=== PATIENT | male | born 1970 | race Caucasian/White ===

== ENCOUNTER 2020-12-11 10:57 | Outpatient (NON) | payer OTHER, SELFPAY ==
[2020-12-11 22:22] LABS: SARS-CoV-2 RNA PCR Negative
== END 2020-12-11 10:58 ==
PROVIDERS: PCP Emergency Medicine; Visit Provider Emergency Medicine
DX: J06.9 Acute upper respiratory infection, unspecified (principal); Z20.822 Contact with and (suspected) exposure to COVID-19
CPT/HCPCS: C9803; U0003

== ENCOUNTER → 2020-12-12 15:09 | Outpatient (CLI) | payer OTHER, SELFPAY ==
--- NOTE | ~2020-12-12 | XR_ITS ---
EXAMINATION: XR hip RT min 2V DATE: 12/12/2020 15:25 INDICATION: Right hip pain. TECHNIQUE: 3 views of right hip were obtained. COMPARISON: None. FINDINGS: Bone alignment is normal. No fracture. There is sclerosis in femoral head, consistent with osteonecrosis. There is mild right hip osteoarthritis. IMPRESSION: 1. Sclerosis in right femoral head, consistent with osteonecrosis. 2. Mild right hip osteoarthritis. Reviewed, dictated and finalized at location A. EM SUPPORT SPECIALIST
== END ==
PROVIDERS: PCP Emergency Medicine; Visit Provider Emergency Medicine
DX: M16.11 Unilateral primary osteoarthritis, right hip (principal)
CPT/HCPCS: 73502

== ENCOUNTER → 2022-02-12 02:00 | Outpatient (CLI) | payer OTHER, SELFPAY ==
[2022-02-12 11:57] LABS: SARS-CoV-2 RNA PCR Negative
== END ==
PROVIDERS: PCP Emergency Medicine; Visit Provider Emergency Medicine
DX: R50.9 Fever, unspecified (principal); Z20.822 Contact with and (suspected) exposure to COVID-19
CPT/HCPCS: C9803; U0003; U0005

== ENCOUNTER 2022-02-15 12:34 | Emergency (ER) | payer OTHER, SELFPAY ==
--- NOTE | ~2022-02-15 | CT_ITS ---
EXAMINATION: CT brain wo con DATE: 02/15/2022 14:46 INDICATION: Dizziness. TECHNIQUE: Computed tomography (CT) of the head was performed without intravenous contrast. The mA wa s adjusted according to patient size. Iterative reconstruction technique was employed. The dose-lengt h product was 756.67 mGy-cm. COMPARISON: None FINDINGS: There is no intracranial hemorrhage, acute infarction, or abnormal intracranial mass lesion . The ventricles are normal in size. There is an aneurysm clip in suprasellar cistern. There are zhu ges of right-sided craniotomy. The orbits are normal. There is mild mucosal thickening in the paranas al sinuses. The mastoid air cells are normal. IMPRESSION: 1. Normal brain. Reviewed, dictated and finalized at location A. IMPRESSION: 1. Normal brain.
--- NOTE | ~2022-02-15 | XR_ITS ---
EXAMINATION: XR chest 2V 02/15/2022 14:50 INDICATION: Dizziness. Hypotension. PROCEDURE: 2 view chest COMPARISON: No prior studies for comparison. FINDINGS: The lungs are clear. The cardiomediastinal silhouette is within normal limits. There are no pleural effusions. There is no pneumothorax suspected. IMPRESSION: 1: NO ACUTE CARDIOPULMONARY DISEASE. Reviewed, dictated and finalized at location B.
[2022-02-15 12:35] VITALS: BP 123/61; PULSE 79; RESP 15; TEMP 36.4; O2SAT 99
--- NOTE | 2022-02-15 13:58 | ECG_ITS ---
Measurements Intervals [place] Rate: 67 P: 17 DE: 151 QRS: 1 QRSD: 108 T: 15 QT: 420 QTc: 446 Interpretive Statements SINUS RHYTHM NORMAL ECG NO PREVIOUS ECG AVAILABLE FOR COMPARISON Electronically Signed On 02-15-2022 16:20:34 CDT by Mikey Bailey M.D.
--- NOTE | 2022-02-15 13:59 | ED.DIZZY ---
HPI - Dizziness General Chief Complaint: Dizziness Stated Complaint: hypotension, dizziness Time Seen by Provider: 02/15/22 13:53 Source: patient Mode of arrival: ambulatory Limitations: no limitations History of Present Illness HPI Narrative: This is a 51 year old male that presents to the ER for lightheadedness. Has had intermittent episodes of this over the last week. He noted his blood pressure was low with this today which prompted him to be seen. Denies vision changes, vomiting, chest pain, shortness of breath, numbness, or weakness. Related Data Home Medications Medication Instructions Recorded Confirmed allopurinol 02/15/22 doxazosin mg 02/15/22 fenofibrate mg 02/15/22 hydralazine 02/15/22 levothyroxine 02/15/22 lisinopril 02/15/22 triamterene-hydrochlorothiazid tablet 02/15/22 verapamil mg PO 02/15/22 Allergies Allergy/AdvReac Type Severity Reaction Status Date / Time No Known Allergies Allergy Unverified 04/01/16 01:18 Review of Systems Review of Systems: CONSTITUTIONAL: Denies fever EYES: Denies visual changes CARDIOVASCULAR: Denies chest pain, or edema. RESPIRATORY: Denies dyspnea. GASTROINTESTINAL: Denies vomiting NEUROLOGIC: Denies headache, numbness, or weakness. All systems reviewed & are unremarkable except as noted in HPI and below PMFSH Past Medical History Medical History (Updated 02/15/22 @ 16:18 by Jeanna Chauhan PA-C) History of hypertension Social History Social History (Updated 02/15/22 @ 14:41 by Jeanna Chauhan PA-C) Smoking status: Never smoker Exam Narrative: GENERAL: Well-appearing, well-nourished, and in no acute distress. HEAD: Normocephalic, atraumatic. EYES: PERRLA and EOMI. ENT: Nares clear, no rhinorrhea or epistaxis. Mucous membranes moist. Oropharynx without tonsillar hypertrophy exudate or other lesions. Bilateral TMs pearly sandoval non-bulging NECK: Supple. No adenopathy or masses. CHEST: Clear to auscultation. No respiratory distress. No wheezes rales or rhonchi HEART: Regular rate and rhythm. No murmur heard. Normal peripheral pulses. ABDOMEN: Soft, nontender, nondistended, normal active bowel sounds. EXTREMITIES: Normal range of motion. No edema. Strength equal in bilateral upper and lower extremities (5/5) SKIN: Warm, dry, no rash. NEURO: No focal deficits. Alert and oriented x3. Cranial nerves II through XII grossly intact PSYCH: Normal mood and affect Course Vital Signs Vital signs: Vital Signs Temperature 97.6 F 02/15/22 12:35 Pulse Rate 79 02/15/22 12:35 Respiratory Rate 15 02/15/22 12:35 Blood Pressure 123/61 02/15/22 12:35 Pulse Oximetry 99 02/15/22 12:35 Temperature 97.6 F 02/15/22 12:35 Pulse Rate 79 02/15/22 14:14 Respiratory Rate 15 02/15/22 12:35 Blood Pressure 98/59 L 02/15/22 14:14 Pulse Oximetry 99 02/15/22 12:35 MDM - Dizziness MDM Narrative Medical decision making narrative: Patient presents to the emergency department for lightheadedness today. Patient orthostatic on arrival. Symptoms improved with IV fluid administration. He is neurovascularly intact. CBC and metabolic panel without concerning findings. UA without evidence of infection. Chest x-ray without acute cardiopulmonary abnormality. EKG without concerning changes. CT scan of the brain is normal. Once again patient hydrated with a liter of IV fluids with relief of symptoms. He is stable and felt appropriate for further outpatient evaluation. He is to follow-up with his primary care doctor. He was given warnings to return to the ER Lab Data Attestation: I reviewed the patient's lab results. Result diagrams: 02/15/22 14:19 02/15/22 14:19 Labs: Lab Results 02/15/22 02/15/22 02/15/22 Range/Units 14:19 14:19 14:30 WBC 6.5 (4.5-10.0) K/mm3 RBC 4.62 (4.6-6.20) M/mm3 Hgb 14.0 (14.0-18.0) g/dL Hct 41.3 L (42.0-52.0) % MCV 89.4 (80-100) fl MCH 30.3 (26
[2022-02-15 14:11] VITALS: BP 103/63; PULSE 63
[2022-02-15 14:12] VITALS: BP 112/67; PULSE 73
[2022-02-15 14:14] VITALS: BP 98/59; PULSE 79
[2022-02-15 14:38] LABS: Basophils Percent Auto 0.5 % (0.2-1.2); Eosinophils Absolute Auto 0.2 K/mm3 (0-0.3); Eosinophils Percent Auto 2.5 % (0-4.4); Hematocrit 41.3 % (42.0-52.0); Immature Granulocyte Absolute 0.04 K/mm3 (0.00-0.031); Immature Granulocyte Percent A 0.6 % (0-0.5); Lymphocytes Absolute Auto 1.93 K/mm3 (0.9-3.2); Lymphocytes Percent Auto 29.7 % (18.3-44.2); Mean Corpuscular HGB Conc 33.9 g/dl (32-36); Mean Corpuscular Hemoglobin 30.3 pg (26-34); Mean Corpuscular Volume 89.4 fl (80-100); Monocytes Absolute Auto 0.6 K/mm3 (0.1-0.6); Monocytes Percent Auto 8.6 % (2.6-8.5); Neutrophils Absolute Auto 3.8 K/mm3 (1.3-6.7); Neutrophils Percent Auto 58.1 % (45.5-73.1); Platelet Count Result 360 k/mm3 (150-375); Red Blood Count 4.62 M/mm3 (4.6-6.20); Red Cell Distribution Width 12.1 % (11.5-14.5); White Blood Count 6.5 K/mm3 (4.5-10.0)
[2022-02-15] MEDS: SODIUM CHLORIDE 0.9% IV 1,000 ML 999 ML IV CONT (14:45)
[2022-02-15 15:01] LABS: Alanine Aminotransferase 45 U/L (4-50); Albumin Level 4.8 g/dL (3.5-5.1); Alkaline Phosphatase 68 U/L (38-126); Anion Gap 13 mmol/L (8-16); Aspartate Amino Transferase 70 U/L (17-59); Bilirubin,Total 0.4 mg/dL (0.2-1.3); Blood Urea Nitrogen 33 mg/dL (9-20); Calcium 8.9 mg/dL (8.4-10.2); Carbon Dioxide 22 mmol/L (22-30); Chloride 100 mmol/L (98-107); Estimated Glomerular Filt Rate 58; Glucose 90 mg/dL (65-110); Potassium 3.9 mmol/L (3.4-5.0); Sodium 135 mmol/L (137-145)
[2022-02-15 15:04] LABS: Add Urine Microscopic? YES; Appearance Urine Cloudy (Clear); Bacteria Urine Trace /hpf; Bilirubin Urine Negative (Negative); Blood Urine Negative (Negative); Color Urine Amber (Yellow); Glucose Urine UA Negative (Negative); Ketones Urine Negative (Negative); Leukocyte Esterase Ur Negative LEU/UL (Negative); Mucus Urine Few /lpf; Nitrate Urine Negative (Negative); Protein Urine Negative (Negative); Specific Grav Ur 1.024 (1.001-1.035); Urobilinogen Urine Negative mg/dL (<2.0); WBC Urine 0-3 /hpf
[2022-02-15 16:25] VITALS: BP 120/49; PULSE 80; RESP 18; O2SAT 99
== END 2022-02-15 16:25 | disposition home or self-care (01) ==
PROVIDERS: Physician Assistant; Emergency Provider Emergency Medicine; PCP Emergency Medicine
DX: R42 Dizziness and giddiness (principal); I10 Essential (primary) hypertension
CPT/HCPCS: 36415; 70450; 71046; 80053; 81001; 85025; 93005; 96360; 99284; J7030

== ENCOUNTER 2022-02-22 12:52 | Outpatient (CLI) | payer OTHER, SELFPAY ==
--- NOTE | ~2022-02-22 | US_ITS ---
EXAMINATION: US renal BI DATE: 02/22/2022 14:07 INDICATION: Elevated liver enzymes TECHNIQUE: Multiple grayscale and Doppler ultrasound images of the kidneys were obtained. COMPARISON: None. FINDINGS: The right kidney measures 13.2 x 7.3 x 5.6 cm. The left kidney measures 12.9 x 6.3 x 3.6 cm and contains a 3.1 cm cyst. The kidneys demonstrate normal parenchymal echogenicity. There is no hyd ronephrosis. The bladder is normal. IMPRESSION: 1. Normal kidneys without hydronephrosis. Reviewed, dictated and finalized at location B.
--- NOTE | ~2022-02-22 | US_ITS ---
EXAMINATION: US abdomen complete DATE: 02/22/2022 14:07 INDICATION: Elevated liver enzymes TECHNIQUE: Multiple grayscale and Doppler ultrasound images of the abdomen were obtained. COMPARISON: None available FINDINGS: Bowel gas obscures visualization of the pancreas. The liver demonstrates increased echogeni city, heterogenous echotexture, and decreased through transmission. No surface nodularity. Normal hep atopetal flow in the main portal vein. The gallbladder is normal with no abnormal wall thickening, pe richolecystic fluid or stones. The normal common bile duct measures 5 mm. There was no sonographic Mu rphy sign. The visualized portions of the aorta and inferior vena cava are normal. The right kidney measures 12.4 x 6.6 x 5.5 cm. The left kidney measures 13.5 x 6.4 x 5.2 cm. There is a 2.9 cm cyst of the left kidney. The kidneys demonstrate normal parenchymal echogenicity. There is no hydronephrosis. The spleen is normal in appearance and measures 12.3 cm. IMPRESSION: 1. Diffuse hepatic steatosis. Reviewed, dictated and finalized at location B.
[2022-02-22 14:38] LABS: Anion Gap 8 mmol/L (8-16); Blood Urea Nitrogen 18 mg/dL (9-20); Calcium 9.6 mg/dL (8.4-10.2); Carbon Dioxide 23 mmol/L (22-30); Chloride 104 mmol/L (98-107); Estimated Glomerular Filt Rate > 60; Glucose 86 mg/dL (65-110); Potassium 4.3 mmol/L (3.4-5.0); Sodium 135 mmol/L (137-145)
[2022-02-22 15:47] LABS: Hepatitis B Surface Antigen Negative (Negative)
[2022-02-22 15:53] LABS: HAV RESULT Negative (Negative); Hepatitis B Core IgM Result Negative (Negative)
[2022-02-22 16:05] LABS: Hepatitis C Virus Antibody Negative (Negative)
== END 2022-02-22 12:53 | disposition home or self-care (01) ==
PROVIDERS: PCP Emergency Medicine; Visit Provider Emergency Medicine
DX: R31.9 Hematuria, unspecified (principal); R74.8 Abnormal levels of other serum enzymes; K76.0 Fatty (change of) liver, not elsewhere classified
CPT/HCPCS: 36415; 76700; 76775; 80048; 80074; 88108

== ENCOUNTER 2022-02-23 10:55 | Outpatient (CLI) | payer OTHER, SELFPAY ==
[2022-02-23 14:47] LABS: IFOB Positive Control Positive; Immunochemical Fecal Occult Bl Positive (N)
== END 2022-02-23 10:56 | disposition home or self-care (01) ==
LOC: ANHLAB 10:56
PROVIDERS: PCP Emergency Medicine; Visit Provider Emergency Medicine
DX: D64.9 Anemia, unspecified (principal); R94.5 Abnormal results of liver function studies; R31.9 Hematuria, unspecified
CPT/HCPCS: 82274

== ENCOUNTER 2022-06-18 11:08 | Inpatient (IN) | payer OTHER, SELFPAY ==
[2022-06-18] VITALS (17 sets, daily range): BP systolic 104–132; BP diastolic 52–66; PULSE 65–80; RESP 16–20; TEMP 36.1–36.6; O2SAT 94–100
--- NOTE | ~2022-06-18 | CT_ITS ---
EXAMINATION: CT abdomen pelvis w con DATE: 06/18/2022 14:16 INDICATION: Abdominal pain. Covid-positive yesterday. TECHNIQUE: Computed tomography (CT) of the abdomen and pelvis was performed with 100 CC Omnipaque 300 intravenous contrast. Automated exposure control and iterative reconstruction technique were employe d. Exam dose: 805.01 mGy-cm total exam DLP. COMPARISON: 02/22/2022 bilateral renal ultrasound examination; kidneys were reported normal, without h ydronephrosis FINDINGS: The lung bases are clear. Normal heart size. No pericardial or pleural effusion. Small sliding hiatal hernia. The liver, gallbladder, bile ducts, pancreas, pancreatic duct and spleen are unremarkable. 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 Possible proxy 14 mm right adrenal myelolipoma. Approximately 7.5 and 4.5 mm right renal cysts. 4 mm and 3 cm left renal cysts. Prostate enlargement, impressing the base of the urinary bladder. Mild diffuse bladder wall thickenin g. Moderate bilateral fat-containing inguinal hernias. There is atherosclerotic calcification but normal caliber of the abdominal aorta and iliac and femora l arteries. No intraperitoneal or retroperitoneal or pelvic mass lesion or lymphadenopathy or ascites . There is a pericolic irregular small abscess cavity and pericolic fat stranding at the mid sigmoid co danny, consistent with diverticulitis and small diverticular abscess measuring approximately 10 mm with an 2.5 cm vertical dimension. There are numerous diverticula of the sigmoid colon. No bowel obstruction. Normal appendix. Bilateral femoral head avascular necrosis and secondary hip joint osteoarthritis. No suspicious osteolytic or osteoblastic lesions. IMPRESSION: Sigmoid diverticulitis with approximately 10 x 25 mm pericolic abscess and moderate noelle colic fat stranding consistent with inflammatory change Sigmoid diverticulosis Normal appendix Moderate bilateral fat-containing inguinal hernias Small hiatal hernia Bilateral renal cysts Bilateral femoral head avascular necrosis and secondary osteoarthritis Reviewed, dictated and finalized at Location A. Reviewed, dictated and finalized at location B. IMPRESSION: Sigmoid diverticulitis with approximately 10 x 25 mm pericolic abs cess and moderate pericolic fat stranding consistent with inflammatory change Sigmoid diverticulosis Normal appendix Moderate bilateral fat-containing inguinal hernias Small hiatal hernia Bilateral renal cysts Bilateral femoral head avascular necrosis and secondary osteoarthritis
--- NOTE | ~2022-06-18 | XR_ITS ---
EXAMINATION: XR chest 1V portable DATE: 06/19/2022 13:20 INDICATION: Abdominal pain. COVID-19 positive. TECHNIQUE: A single frontal view of the chest was obtained on 2 radiographs. COMPARISON: Chest 2 views 02/15/2022, CT abdomen and pelvis 06/18/2022 FINDINGS: There is mild atelectasis in left lower lung zone. No pleural effusion or pneumothorax. The heart size is normal. IMPRESSION: 1. Mild atelectasis in left lower lung zone. Reviewed, dictated and finalized at location A.
[2022-06-18 11:43] LABS: Basophils Percent Auto 0.3 % (0.2-1.2); Eosinophils Absolute Auto 0.1 K/mm3 (0-0.3); Eosinophils Percent Auto 0.8 % (0-4.4); Hematocrit 44.1 % (42.0-52.0); Hemoglobin 14.6 g/dL (14.0-18.0); Immature Granulocyte Absolute 0.05 K/mm3 (0.00-0.031); Immature Granulocyte Percent A 0.5 % (0-0.5); Lymphocytes Percent Auto 22.7 % (18.3-44.2); Mean Corpuscular HGB Conc 33.1 g/dl (32-36); Mean Corpuscular Hemoglobin 31.1 pg (26-34); Mean Corpuscular Volume 93.8 fl (80-100); Mean Platelet Volume 10.8 fl (7.4-10.4); Monocytes Absolute Auto 0.8 K/mm3 (0.1-0.6); Monocytes Percent Auto 7.9 % (2.6-8.5); Neutrophils Absolute Auto 6.9 K/mm3 (1.3-6.7); Neutrophils Percent Auto 67.8 % (45.5-73.1); Platelet Count Result 295 k/mm3 (150-375); Red Cell Distribution Width 12.1 % (11.5-14.5); White Blood Count 10.1 K/mm3 (4.5-10.0)
[2022-06-18 11:55] LABS: Alanine Aminotransferase 18 U/L (6-50); Albumin Level 4.9 g/dL (3.5-5.1); Alkaline Phosphatase 55 U/L (38-126); Anion Gap 12 mmol/L (8-16); Aspartate Amino Transferase 26 U/L (17-59); Bilirubin,Total 0.8 mg/dL (0.2-1.3); Blood Urea Nitrogen 26 mg/dL (9-20); Calcium 9.4 mg/dL (8.4-10.2); Carbon Dioxide 22 mmol/L (22-30); Chloride 103 mmol/L (98-107); Estimated CRCL calculation 65 ml/min; Estimated Glomerular Filt Rate 58; Glucose 106 mg/dL (65-110); Lipase 57 U/L (23-300); Potassium 3.7 mmol/L (3.4-5.0); Sodium 137 mmol/L (137-145)
--- NOTE | 2022-06-18 13:02 | ED.ABDPAIN ---
HPI - Abdominal Pain General Chief Complaint: Abdominal Pain Stated Complaint: abd pain Time Seen by Provider: 06/18/22 13:01 Source: patient and RN notes reviewed Mode of arrival: ambulatory Limitations: no limitations History of Present Illness HPI narrative: 51 years old white male developed COVID symptoms 4 days ago, tested positive yesterday complaining of right lower quadrant pain, sharp, constant with intermittent flareup, intermittent chills, possible constipation, loose stool today. Patient denies any fever, vomiting, radiation of pain. Patient lives alone, vaccinated for COVID, did not get boosted. History of gout, hypertension, hypothyroidism. Related Data Home Medications Medication Instructions Recorded Confirmed allopurinol 100 mg tablet 02/15/22 doxazosin 4 mg tablet mg 02/15/22 fenofibrate 160 mg tablet mg 02/15/22 hydralazine 25 mg tablet 02/15/22 levothyroxine 150 mcg tablet 02/15/22 lisinopril 40 mg tablet 02/15/22 triamterene 37.5 tablet 02/15/22 mg-hydrochlorothiazide 25 mg tablet verapamil 240 mg tablet,extended mg PO 02/15/22 release Allergies Allergy/AdvReac Type Severity Reaction Status Date / Time No Known Allergies Allergy Verified 06/18/22 11:18 Review of Systems Review of Systems: All systems reviewed & are unremarkable except as noted in HPI and below PMFSH Past Medical History Medical History History of hypertension Social History Social History Smoking status: Never smoker Exam Narrative: General appearance: Well-developed, well-nourished Skin: Normal color Head: Normocephalic, nontraumatic Eyes: Clear conjunctiva ENT: Oropharynx normal, ears normal, nose normal Neck: Supple, nontender Chest and respiratory: Airway patent, no respiratory distress, no accessory muscle use Heart: Regular rate/rhythm Abdomen: Soft, severe tenderness right lower quadrant, positive guarding, no rebound, no organomegaly, quiet bowel sounds Vascular: Normal peripheral pulses, normal capillary refill. 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 as tested, no gross motor deficit Course Vital Signs Vital signs: Vital Signs Temperature 36.1 C L 06/18/22 11:15 Pulse Rate 80 06/18/22 11:15 Respiratory Rate 16 06/18/22 11:15 Pulse Oximetry 100 06/18/22 11:15 Oxygen Delivery Room Air 06/18/22 11:15 Temperature 36.1 C L 06/18/22 11:15 Pulse Rate 80 06/18/22 11:15 Respiratory Rate 16 06/18/22 11:15 Pulse Oximetry 100 06/18/22 11:15 Oxygen Delivery Room Air 06/18/22 11:15 MDM - Abdominal Pain Lab Data Result diagrams: 06/18/22 11:26 06/18/22 11:26 Labs: Lab Results 06/18/22 06/18/22 Range/Units 11:26 11:26 WBC 10.1 H (4.5-10.0) K/mm3 RBC 4.70 (4.6-6.20) M/mm3 Hgb 14.6 (14.0-18.0) g/dL Hct 44.1 (42.0-52.0) % MCV 93.8 (80-100) fl MCH 31.1 (26-34) pg MCHC 33.1 (32-36) g/dl RDW 12.1 (11.5-14.5) % Plt Count 295 (150-375) k/mm3 MPV 10.8 H (7.4-10.4) fl Immature Gran % (Auto) 0.5 (0-0.5) % Neut % (Auto) 67.8 (45.5-73.1) % Lymph % (Auto) 22.7 (18.3-44.2) % [place] % (Auto) 7.9 (2.6-8.5) % Eos % (Auto) 0.8 (0-4.4) % Baso % (Auto) 0.3 (0.2-1.2) % Lymph # (Auto) 2.30 (0.9-3.2) K/mm3 [place] # (Auto) 0.8 H (0.1-0.6) K/mm3 Eos # (Auto) 0.1 (0-0.3) K/mm3 Baso # (Auto) 0.0 (0.0-0.1) K/mm3 Abs Immat Gran (auto) 0.05 H (0.00-0.031) K/mm3 Absolute Neuts (auto) 6.9 H (1.3-6.7) K/mm3 Abso
[2022-06-18] MEDS: HYDROmorphone HCL INJ (*CRX) 1 MG/ML SYR 0.5 MG IV PUSH ×3 (13:55→19:54)
[2022-06-18] MEDS: ONDANSETRON INJ 4 MG/2 ML VIAL IV PUSH (13:55)
[2022-06-18] MEDS: SODIUM CHLORIDE 0.9% IV 1,000 ML 999 ML IV CONT (13:56)
[2022-06-18 15:13] LABS: Lactic Acid Reflex 1.4 mmol/L (0.7-2.0)
[2022-06-18 15:31] LABS: Appearance Urine Clear (Clear); Bilirubin Urine Negative (Negative); Blood Urine Negative (Negative); Color Urine Yellow (Yellow); Glucose Urine UA Negative (Negative); Ketones Urine Negative (Negative); Leukocyte Esterase Ur Negative LEU/UL (Negative); Nitrate Urine Negative (Negative); Protein Urine 2+ mg/dL (Negative); Specific Grav Ur 1.015 (1.001-1.035); Urobilinogen Urine 0.2 mg/dL (<2.0)
[2022-06-18 15:41] LABS: Add Urine Microscopic? YES; Bacteria Urine Trace /hpf; Mucus Urine Rare /lpf; RBC Urine 0-2 /hpf (0-2); Squamous Epithelial Cell Urine Rare /hpf (Few); WBC Urine 0-3 /hpf
[2022-06-18] MEDS: SODIUM CHLORIDE 0.9% IV 1,000 ML 125 ML IV CONT ×2 (15:55→23:27)
[2022-06-18 16:18] LABS: SARS-CoV-2 RNA PCR Positive
--- NOTE | 2022-06-18 16:30 | PM.IMHP ---
H&P: HPI History of Present Illness Date/Time: 06/18/22 16:30 Chief Complaint: Abdominal pain. Narrative: This is a pleasant 51-year-old male with hypertension, hypothyroidism, and GERD who presented to the emergency department from home for evaluation of abdominal pain. Last week he was exposed to somebody with COVID-19 and he did at home test several days ago which was positive though he has only had mild symptoms including some sinus congestion and sore throat. On Friday he developed mid pain which has since settled in the left lower quadrant. It has been constant since the outset and he describes a sharp shooting pain that does not seem to radiate. He has not noticed any significant alleviating factors but the pain is worse with palpation and movement. Unfortunately the pain has gotten worse and that led him to the ER today where a CT of the abdomen and pelvis showed sigmoid diverticulitis with a small pericolic abscess and he is being admitted in this setting. He has no prior history of diverticulitis and he does not recall being told about diverticulosis after a screening colonoscopy several months ago. He denies fever, chills, sweats, chest pain, shortness breast, cough, vomiting, and diarrhea. Review of Systems Review of Systems: Twelve systems were reviewed. No headache or neck ache. No fever. He denies shortness of breath. No dysuria or hematuria. He does get up to use the restroom most nights, once a night. He has bilateral hip pain and is being followed by an orthopedic surgeon for osteoarthritis of the hips an avascular necrosis. Except as documented all other systems were reviewed and are negative. 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 Gastroesophageal reflux disease Gout Hypercholesterolemia Hypertension Hypothyroidism Osteoarthritis Surgical History Surgical History (Updated 06/18/22 @ 23:07 by Ursula Orr PA-C) Status post clamping of cerebral aneurysm Family History Family History (Updated 06/18/22 @ 23:07 by Ursula Orr PA-C) Sibling Diverticulitis Social History Social History (Updated 06/18/22 @ 23:08 by Ursula G. Gerling, PA-C) Social History: Surrogate medical decision maker: Felipa Barrera, sibling. Code status: Full code. Smoking status: Never smoker Alcohol intake: current Drinks per week: 4 Substance use: never Living arrangements: alone Spiritual care concerns: No Meds Home Medications and Allergies Home Medications Medication Instructions Recorded Confirmed Type doxazosin 4 mg tablet 4 mg PO DAILY 02/15/22 06/18/22 History fenofibrate 160 mg tablet 160 mg PO DAILY 02/15/22 06/18/22 History hydralazine 25 mg tablet 25 mg PO TID 02/15/22 06/18/22 History levothyroxine 150 mcg tablet 150 mcg PO DAILY 02/15/22 06/18/22 History triamterene 37.5 1 tablet PO DAILY 02/15/22 06/18/22 History mg-hydrochlorothiazide 25 mg tablet verapamil 240 mg tablet,extended 240 mg PO BID 02/15/22 06/18/22 History release omeprazole 20 mg capsule,delayed 20 mg PO DAILY PRN Acid Reflux 06/18/22 06/18/22 History release Allergies Allergy/AdvReac Type Severity Reaction Status Date / Time No Known Allergies Allergy Verified 06/18/22 11:18 Vital Signs Vital Signs - 24 hr 06/18/22 11:15 Temperature 97 F L Pulse Rate 80 Respiratory Rate 16 Pulse Oximetry 100 Oxygen Delivery Room Air Exam Narrative: General: Moderately ill-appearing male in the semi recumbent position. Weight: 90.9 kg. BMI: 27.9. HEENT: PERRL, EOMI. Conjunctivae anicteric. Tacky mucous membranes. Neck: Supple. Respiratory: Lungs are clear to auscultation bilaterally. Cardiovascular: Regular rate and rhythm with S1-S2. Gastrointestinal: Abdomen is soft
--- NOTE | 2022-06-18 16:56 | PC.NURSE ---
Hospitalist PA at bedside to assess pt.
[2022-06-18] MEDS: MORPHINE SULFATE (*CRX) 2 MG/ML INJ IV PUSH (17:22)
--- NOTE | 2022-06-18 21:50 | PM.CNGS ---
Assessment and Plan Assessment and plan (1) Abscess of sigmoid colon due to diverticulitis: Code(s): K57.20 - Diverticulitis of large intestine with perforation and abscess without bleeding Status: Acute Assessment and Plan: CT scan reviewed and patient started on antibiotics. Will long have ice chips tonight sparingly. If doing well will gradually begin advancing his diet tomorrow most likely 1st for 24 hours on liquids. Will try to treat with antibiotics. Agree with IV antibiotics using Zosyn for now and consider switching him to Levaquin and Flagyl upon discharge for a total of 10 days of antibiotics. Interestingly the patient just had colonoscopy earlier this year. He does not remember anything mentioned about diverticuli. Will try to get the report. (2) Prostatic enlargement: Code(s): N40.0 - Benign prostatic hyperplasia without lower urinary tract symptoms Status: Acute Assessment and Plan: Has once a night nocturia. Discussed supplementation with Margarita palmetto with him if he would wish, but right now he does not have enough symptoms that he is worried. (3) Avascular necrosis of right femoral head: Code(s): M87.051 - Idiopathic aseptic necrosis of right femur Status: Acute Assessment and Plan: States that this was already known he has had pain in his hip so his PCP sent him to orthopedic surgeon who to took x-rays and told him this diagnosis. He believes the only treatment is replacement at some point if it gets bad enough pain or problems. (4) Avascular necrosis of left femoral head: Code(s): M87.052 - Idiopathic aseptic necrosis of left femur Status: Acute Assessment and Plan: Note same as above (5) COVID-19: Code(s): U07.1 - COVID-19 Status: Acute Assessment and Plan: As per hospitalist. Patient probably does not qualify for the oral antiviral. However, he does now have an added comorbidity with a combination of hypertension and the current diverticulitis. History of Present Illness Consult details Consult date: 06/18/22 Reason for consult: abdominal pain ( with CT evidence of diverticulitis) Requesting physician: Ursula Orr PA-C Narrative: this is a51 year old white male who apparently developed COVID symptoms 4 days ago, and then tested positive Friday. He now came to the ED today complaining of right lower quadrant pain, sharp, constant with intermittent flareups, intermittent chills, possible constipation did not have a bowel movement on Friday or Friday and a loose stool this morning. loose stool today.? Patient denies any fever, vomiting, radiation of pain.? Patient lives alone, vaccinated for COVID With [employer] two shot no booster. History of gout, hypertension, hypothyroidism. workup in the emergency room revealed elevated white count but just slight at 10,000. CT scan of the abdomen done to check on his abdominal pain reveals sigmoid diverticulitis with a 1 x 2.5 cm abscess near the area of the inflamed tissue of the colon. Patient now admitted by the hospitalist we are asked to consult regarding continuing follow-up of his diverticulitis. Interestingly he states that about 6 months ago or early this year he did have an outpatient colonoscopy [place] [facility] at an outpatient center. He was told he did need another 1 for until 10 years apparently no mention was made of any diverticula in the colon. (Will ask nurses to call Dr. Rashida hill office tomorrow and have the copy of the colonoscopy report sent to the floor. Review of Systems Review of Systems: All systems reviewed & are unremarkable except as noted in HPI and below (HPI) Constitutional: Constitutional: Reports as per HPI and Denies fever(s) Comments: Symptoms of COVID have been general achiness and significant tiredness with no energy. He still has his sense of taste and smell and has not had any fever. Eyes: Eyes: Rep
[2022-06-18] MEDS: HYDROmorphone HCL INJ (*CRX) 1 MG/ML SYR IV PUSH (23:26)
[2022-06-19] MEDS: HYDROmorphone HCL INJ (*CRX) 1 MG/ML SYR IV PUSH ×6 (02:27→20:56)
[2022-06-19] MEDS: LEVOTHYROXINE SODIUM INJ 100 MCG/5 ML VIAL 75 MCG IV PUSH (05:36)
[2022-06-19 06:00] VITALS: BP 108/62; PULSE 77; RESP 20; TEMP 36.4; O2SAT 97
[2022-06-19 07:02] LABS: Hematocrit 40.1 % (42.0-52.0); Hemoglobin 12.8 g/dL (14.0-18.0); Mean Corpuscular HGB Conc 31.9 g/dl (32-36); Mean Corpuscular Hemoglobin 30.8 pg (26-34); Mean Corpuscular Volume 96.4 fl (80-100); Mean Platelet Volume 11.3 fl (7.4-10.4); Platelet Count Result 250 k/mm3 (150-375); Red Blood Count 4.16 M/mm3 (4.6-6.20); Red Cell Distribution Width 12.1 % (11.5-14.5); White Blood Count 12.7 K/mm3 (4.5-10.0)
[2022-06-19 07:18] LABS: Alanine Aminotransferase 16 U/L (6-50); Albumin Level 4.4 g/dL (3.5-5.1); Alkaline Phosphatase 51 U/L (38-126); Anion Gap 9 mmol/L (8-16); Aspartate Amino Transferase 25 U/L (17-59); Blood Urea Nitrogen 22 mg/dL (9-20); CRP 23.4 mg/dL (<1.0); Calcium 8.9 mg/dL (8.4-10.2); Carbon Dioxide 23 mmol/L (22-30); Chloride 105 mmol/L (98-107); Estimated CRCL calculation 83 ml/min; Estimated Glomerular Filt Rate > 60; Glucose 105 mg/dL (65-110); Sodium 137 mmol/L (137-145)
[2022-06-19 08:37] LABS: Free T4 Free Thyroxine Reflex 1.62 ng/dL (0.78-2.19)
[2022-06-19] MEDS: PANTOPRAZOLE SODIUM IV 40 MG VIAL IV PUSH (09:16)
[2022-06-19 09:29] LABS: Total Triiodothyronine (T3) 0.71 NG/ML (0.97-1.69)
[2022-06-19] MEDS: SODIUM CHLORIDE 0.9% IV 1,000 ML 125 ML IV CONT (11:52)
--- NOTE | 2022-06-19 13:08 | PC.NURSE ---
Patient to find out where he had colonoscopy done and have records faxed.
[2022-06-19 14:00] VITALS: BP 124/78; PULSE 75; RESP 18; TEMP 37.2; O2SAT 96
--- NOTE | 2022-06-19 16:46 | PM.IMPN ---
Progress Note: A&P Assessment and Plan (1) Abscess of sigmoid colon due to diverticulitis: Code(s): K57.20 - Diverticulitis of large intestine with perforation and abscess without bleeding Status: Acute Assessment and Plan: Presented with abdominal pain. CT of the abdomen/pelvis showed sigmoid diverticulitis with 10x25 mm pericolic abscess Continue IV Zosyn Appreciate general surgery consultation Continue NPO diet. Advance diet per general surgery Monitor serial abdominal exams Analgesics as needed Slight increase in WBC today to 12.7. Patient remains afebrile. Monitor CBP (2) COVID-19: Code(s): U07.1 - COVID-19 Status: Acute Assessment and Plan: Symptom onset 06/14/22 with home positive test. Confirmatory PCR at this facility positive on 06/18/22. Patient relatively asymptomatic. CXR with no evidence of pneumonia He has no supplemental oxygen requirement No indication for steroids or antivirals at this time Inflammatory markers are slightly elevated but this could be attributed to acute diverticulitis Continue isolation precautions (3) Hypertension: Code(s): I10 - Essential (primary) hypertension Status: Acute Assessment and Plan: Blood pressures have been stable. Home p.o. antihypertensives on hold as patient is NPO. Resume when clinically appropriate Monitor BP trends (4) Hypothyroidism: Code(s): E03.9 - Hypothyroidism, unspecified Status: Acute Assessment and Plan: TSH is slightly elevated at 4.7 with normal T4 Continue levothyroxine, currently IV while NPO. Transition to p.o. levothyroxine when diet is advanced (5) Gastroesophageal reflux disease: Code(s): K21.9 - Gastro-esophageal reflux disease without esophagitis Status: Acute Assessment and Plan: No acute issues Continue IV Protonix 40 mg daily Subjective Date/time seen: 06/19/22 16:46 Interval history: Date of service: 06/19/2022 Erlin Mullins is a 51-year-old male with a history of cerebral aneurysm s/p clamp hyperlipidemia, hypertension, hypothyroidism, and avascular necrosis of the left and right femoral head who is seen in follow-up for sigmoid diverticulitis with small pericolic abscess. He is feeling poorly today. He is having pretty significant intermittent, sharp abdominal pain which he rates as 9/10. His pain is in the middle of his abdomen and off towards the right lower quadrant. He endorses nausea but no emesis. He has not had a fever but he does feel chilled. He has not had a bowel movement today but has passed flatus. He denies melena or hematochezia. denies shortness of breath, cough, chest pain, sore throat, rhinorrhea, congestion. He did feel a bit lightheaded today at this sensation passed quickly. He denies dizziness. No urinary symptoms including dysuria or hematuria. Review of Systems Review of Systems: All systems reviewed & are unremarkable except as noted in HPI and below Exam Narrative: General: Well-nourished, well-appearing 51-year-old male, sitting up in bed, comfortable, NARD Neuro: awake, alert and oriented x4, speech clear, no focal neuro deficits noted HEENMT: normocephalic, atraumatic, EOMI, sclerae anicteric, moist oral mucosa Respiratory: clear to auscultation bilaterally, nonlabored breathing Cardio: regular rate, regular rhythm with S1-S2 Abdomen: nondistended, normoactive bowel sounds, soft, tender to palpation in right lower quadrant Extremities: no edema, erythema, or tenderness to palpation, DP pulses 2+ bilaterally Skin: no rashes or lesions, warm and dry Psych: appropriate mood and affect, judgment and insight intact Objective Data Vital Signs Vital Signs: Vital Signs - 24 hr 06/18/22 17:00 06/18/22 17:01 06/18/22 17:02 Temperature Pulse Rate Respiratory Rate Blood Pressure 121/66 Pulse Oximetry 97 100 96 Oxygen Delivery 06/18/22 23:00 07
[2022-06-19] MEDS: ONDANSETRON INJ 4 MG/2 ML VIAL IV PUSH (21:05)
[2022-06-19] MEDS: SODIUM CHLORIDE 0.9% IV 1,000 ML 100 ML IV CONT (21:18)
[2022-06-19 21:54] VITALS: BP 113/68; PULSE 73; RESP 18; TEMP 36.8; O2SAT 97
--- NOTE | 2022-06-20 00:17 | PM.PNGS ---
Progress Note: A&P Assessment and Plan (1) Abscess of sigmoid colon due to diverticulitis: Code(s): K57.20 - Diverticulitis of large intestine with perforation and abscess without bleeding Status: Acute Assessment and Plan: this is the main reason were seen the patient. He still has somewhat of an ileus. Passing flatus but not stool. Consider taking duplex suppository tonight and another 1 tomorrow see if this will into the rectum and jump start his bowel. Continue only sips of water until possible patient has a bowel movement then consider beginning to dance diet with liquids for 24 hours then may be soft food. White count went up slightly but we will continue antibiotics and see what it is tomorrow. Will have dietitian discussed with him low-fiber and high-fiber diets to be used in the future. (2) Prostatic enlargement: Code(s): N40.0 - Benign prostatic hyperplasia without lower urinary tract symptoms Status: Acute Assessment and Plan: Discussed possible use of saw palmetto with the patient he will get consider this as an outpatient. (3) COVID-19: Code(s): U07.1 - COVID-19 Status: Acute Assessment and Plan: Seems fairly asymptomatic but complains of simple tiredness. Subjective Subjective Date/Time Seen: 06/19/22 10:17 pm Patient reports: no new complaints, flatus, no bowel movement and afebrile Interval history: The patient has been having some abdominal cramping across the upper abdomen passing gas but not having bowel movements. Ordered duplex suppository for both this evening and in the morning should he wish to proceed. I encouraged him to try these to see if emptying the rectum would allow start of his bowel function. Review of Systems Review of Systems: All systems reviewed & are unremarkable except as noted in HPI and below (HPI) Constitutional: Constitutional: Reports as per HPI and Denies fever(s) Comments: Symptoms of COVID have been general achiness and significant tiredness with no energy. He still has his sense of taste and smell and has not had any fever. Eyes: Eyes: Reports no additional eye complaints ENT: Reports Normal hearing present and Denies dizziness Cardiovascular: Cardiovascular: Reports no additional cardiovascular complaints, Denies chest pain and Denies irregular heart rhythm Respiratory: Respiratory: Reports no additional respiratory complaints Gastrointestinal: Gastrointestinal: Reports no additional gastrointestinal complaints, Denies abdominal pain and Denies bloating Comments: Main symptoms have been abdominal pain that is improved now. Has received several doses of Dilaudid however. Patient states that typically he has a bowel movement once a day did skip that a few times in the last 3-4 days. Never has had abdominal surgery. Genitourinary: Genitourinary: Denies hematuria Comments: I informed the patient that prostatomegaly was noted on his CT scan he endorses a once a night episode of nocturia. Is not currently taking anything for enlarged prostate Musculoskeletal: Musculoskeletal: Denies back pain Comments: history of gout was on medication but because his recent uric acid level is normal PCP took him off of it. Integumentary/Breasts: Skin/Breast: Reports system reviewed and no additional complaints, except as docu Neurologic: Reports Normal hearing present, Denies Abnormal speech present, Denies confusion and Denies dizziness Psychiatric: Psychiatric: Reports no additional psychiatric complaints and Denies confusion Endocrine: Comments: History of hypothyroidism on levothyroxine. Hematologic/Lymphatic: Hematologic/Lymphatic: Denies easy bleeding and Denies easy bruising Allergic/Immunologic: Allergic/Immunologic: Reports no additional allergic/immunologic complaints Exam Const: General: cooperative, comfortable, alert and awake Orientation/consciousness: patient oriented x3 HENMT: Head: n
[2022-06-20] MEDS: HYDROmorphone HCL INJ (*CRX) 1 MG/ML SYR IV PUSH (02:14)
[2022-06-20] MEDS: LEVOTHYROXINE SODIUM INJ 100 MCG/5 ML VIAL 75 MCG IV PUSH (05:40)
[2022-06-20] MEDS: SODIUM CHLORIDE 0.9% IV 1,000 ML 100 ML IV CONT (05:49)
[2022-06-20 06:00] VITALS: BP 129/80; PULSE 68; RESP 18; TEMP 36.3; O2SAT 97
[2022-06-20 06:04] LABS: Glucose Point of Care 99 mg/dl (65-105)
[2022-06-20 06:23] LABS: Hematocrit 36.5 % (42.0-52.0); Mean Corpuscular HGB Conc 32.9 g/dl (32-36); Mean Corpuscular Hemoglobin 30.8 pg (26-34); Mean Corpuscular Volume 93.6 fl (80-100); Mean Platelet Volume 10.9 fl (7.4-10.4); Platelet Count Result 251 k/mm3 (150-375); Red Cell Distribution Width 11.9 % (11.5-14.5); White Blood Count 12.2 K/mm3 (4.5-10.0)
[2022-06-20 06:41] LABS: Anion Gap 5 mmol/L (8-16); Blood Urea Nitrogen 15 mg/dL (9-20); Calcium 9.1 mg/dL (8.4-10.2); Carbon Dioxide 28 mmol/L (22-30); Chloride 103 mmol/L (98-107); Estimated CRCL calculation 92 ml/min; Estimated Glomerular Filt Rate > 60; Glucose 101 mg/dL (65-110); Potassium 3.8 mmol/L (3.4-5.0); Sodium 136 mmol/L (137-145)
[2022-06-20] MEDS: HYDROcodone/acetaminophen (*CRX) 5-325 MG TABLET 1 TAB PO ×2 (06:44→20:57)
[2022-06-20 07:22] LABS: CRP 34.7 mg/dL (<1.0)
[2022-06-20] MEDS: PANTOPRAZOLE SODIUM IV 40 MG VIAL IV PUSH (09:29)
[2022-06-20 12:00] VITALS: BP 135/62; PULSE 59; RESP 15; TEMP 36.2; O2SAT 98
--- NOTE | 2022-06-20 13:33 | PM.PNGS ---
Progress Note: A&P Assessment and Plan (1) Abscess of sigmoid colon due to diverticulitis: Code(s): K57.20 - Diverticulitis of large intestine with perforation and abscess without bleeding Status: Acute Assessment and Plan: This is the main reason we are seeing the patient. He seems to be resolving his ileus. Passing flatus and now stool this a.m.. Consider taking a Dulcolax suppository tonight after supper if he has not had another bowel movement. I encouraged him to gradually increase his diet from clears to fulls as he gets better. Recommended that he be on at least a full liquid possibly a soft diet before discharge. Will advance diet with liquids for 24 hours then may be soft food. White count went up slightly but we will continue antibiotics and see what it is tomorrow. Will have dietitian discussed with him low-fiber and high-fiber diets to be used in the future. I again discussed typical treatment of diverticulitis with the patient and provided him yesterday with some patient information regarding the issue also high-fiber diet and some other nutritional information. (2) Prostatic enlargement: Code(s): N40.0 - Benign prostatic hyperplasia without lower urinary tract symptoms Status: Acute Assessment and Plan: Discussed possible use of saw palmetto with the patient he will get consider this as an outpatient. (3) COVID-19: Code(s): U07.1 - COVID-19 Status: Acute Assessment and Plan: Seems fairly asymptomatic but complains of simple tiredness. Subjective Subjective Date/Time Seen: 06/20/22 13:33 Patient reports: still having pain ( notice some gas type pains below and right of the umbilicus after trying clears.), pain is less and bowel movement Interval history: Had a fairly large spontaneous liquid bowel movement today in the bed when he thought he was going to pass gas. Review of Systems Review of Systems: All systems reviewed & are unremarkable except as noted in HPI and below Constitutional: Constitutional: Reports as per HPI, Denies chills and Denies fever(s) Cardiovascular: Cardiovascular: Denies chest pain and Denies dyspnea Respiratory: Respiratory: Reports no additional respiratory complaints and Denies dyspnea Gastrointestinal: Gastrointestinal: Reports as per HPI and Denies bloating Musculoskeletal: Musculoskeletal: Reports no additional musculoskeletal complaints Neurologic: Denies memory loss Psychiatric: Psychiatric: Denies anxiety and Denies memory loss Exam Const: General: cooperative, comfortable, alert and awake Orientation/consciousness: patient oriented x3 HENMT: Head: normal to inspection Mouth: Yes moist mucous membranes Eyes: Sclera: sclerae normal Pupils: Equal, round and reactive pupils present Neck: Neck: normal visual inspection and no JVD Chest: Chest palpation & inspection: normal inspection of the chest Resp: Effort & Inspection: normal respiratory effort Auscultation: clear to auscultation bilaterally GI: Inspection: normal to inspection ( Perhaps slightly distended.) GI Palp: Yes abdominal tenderness ( Lower abdomen more right than left) Auscultation: normal bowel sounds Rectal Exam: deferred Neuro: General: patient oriented x3 Cranial nerves: Yes Equal, round and reactive pupils present Objective Data Vital Signs Vital Signs: Vital Signs - 24 hr 06/19/22 14:00 06/19/22 21:54 06/19/22 20:00 Temperature 37.2 C 36.8 C Pulse Rate 75 73 Respiratory Rate 18 18 Blood Pressure 124/78 113/68 Pulse Oximetry 96 97 Oxygen Delivery Room Air 06/20/22 06:00 06/20/22 08:00 06/20/22 12:00 Temperature 36.3 C L 36.2 C L Pulse Rate 68 59 L Respiratory Rate 18 15 Blood Pressure 129/80 135/62 Pulse Oximetry 97 98 Oxygen Delivery Room Air Intake/Output Intake/Output: Intake & Output 06/17/22 06/18/22 06/19/22 06/20/22 23:59 23:59 23:59 23:59 Intake Total 2100 220
[2022-06-20] MEDS: HYDROcodone/acetaminophen (*CRX) 7.5-325 MG TABLET 1 TAB PO (13:51)
--- NOTE | 2022-06-20 14:50 | PM.IMPN ---
Progress Note: A&P Assessment and Plan (1) Abscess of sigmoid colon due to diverticulitis: Code(s): K57.20 - Diverticulitis of large intestine with perforation and abscess without bleeding Status: Acute Assessment and Plan: Presented with abdominal pain. CT of the abdomen/pelvis showed sigmoid diverticulitis with 10x25 mm pericolic abscess Continue IV Zosyn Appreciate general surgery consultation continue clear liquid diet. Per General surgery, will continue with liquids for least 24 hours before advancing to low-fiber diet. Monitor serial abdominal exams Analgesics as needed WBC 12.2 today, minimal decrease from yesterday. Patient remains afebrile. Monitor CBC. Slight increase in CRP today. (2) COVID-19: Code(s): U07.1 - COVID-19 Status: Acute Assessment and Plan: Symptom onset 06/14/22 with home positive test. Confirmatory PCR at this facility positive on 06/18/22. Patient asymptomatic. CXR with no evidence of pneumonia He has no supplemental oxygen requirement No indication for steroids or antivirals at this time Inflammatory markers are slightly elevated but this could be attributed to acute diverticulitis Continue isolation precautions (3) Hypertension: Code(s): I10 - Essential (primary) hypertension Status: Acute Assessment and Plan: Blood pressures have been stable. Last BP 135/62 Home p.o. antihypertensives had been on hold while NPO and BP has been controlled off these medications. Will resume home p.o. hydralazine. Continue to hold triamterene-hydrochlorothiazide and verapamil to avoid hypotension. Monitor BP trends and resume home medications as appropriate. (4) Hypothyroidism: Code(s): E03.9 - Hypothyroidism, unspecified Status: Acute Assessment and Plan: TSH is slightly elevated at 4.7 with normal T4 Continue levothyroxine. Transition back to p.o. levothyroxine as he is tolerating clears (5) Gastroesophageal reflux disease: Code(s): K21.9 - Gastro-esophageal reflux disease without esophagitis Status: Acute Assessment and Plan: No acute issues Continue PO Protonix 40 mg daily Subjective Date/time seen: 06/20/22 14:50 Interval history: Date of service: 06/20/2022 Erlin Mullins is a 51-year-old male with a history of cerebral aneurysm s/p clamp hyperlipidemia, hypertension, hypothyroidism, and avascular necrosis of the left and right femoral head who is seen in follow-up for sigmoid diverticulitis with small pericolic abscess. he feels a bit better today. His abdominal pain is slightly improved. He does still have pain with deep breaths or when trying to get up and move around. He had a bowel movement this morning. He is tolerating clear liquids. He denies nausea or vomiting. He was able to get up and walk to the bathroom, though this did cause him some more discomfort in his lower abdomen. Additionally, denies any symptoms related to COVID-19 including shortness of breath, cough, congestion, rhinorrhea. no dizziness, lightheadedness, weakness. Denies fevers or chills Review of Systems Review of Systems: All systems reviewed & are unremarkable except as noted in HPI and below Exam Narrative: General: Well-nourished, well-appearing 51-year-old male, sitting up in bed, comfortable, NARD Neuro: awake, alert and oriented x4, speech clear, no focal neuro deficits noted HEENMT: normocephalic, atraumatic, EOMI, sclerae anicteric, moist oral mucosa Respiratory: clear to auscultation bilaterally, nonlabored breathing Cardio: regular rate, regular rhythm with S1-S2 Abdomen: nondistended, normoactive bowel sounds, soft, tender to palpation in right lower quadrant Extremities: no edema, erythema, or tenderness to palpation, DP pulses 2+ bilaterally Skin: no rashes or lesions, warm and dry Psych: appropriate mood and affect, judgment and insight intact Objective Data Vital
--- NOTE | 2022-06-20 15:13 | PCNSR ---
On 06/20/22, the student,Bang Brewster, provided care and completed [facility] documentation on this patient. I have reviewed the student's documentation and agree with the findings.
[2022-06-20 16:00] VITALS: BP 121/71; PULSE 63; RESP 18; TEMP 36.6; O2SAT 98
[2022-06-20 17:20] VITALS: O2SAT 98
[2022-06-20] MEDS: hydrALAZINE HCL 25 MG TABLET PO (17:26)
[2022-06-20 20:00] VITALS: BP 139/73; PULSE 60; RESP 16; TEMP 36.2; O2SAT 99
[2022-06-21] VITALS: BP 149/79; PULSE 63; RESP 16; TEMP 36.2; O2SAT 97
[2022-06-21 04:00] VITALS: BP 138/80; PULSE 61; RESP 16; TEMP 36.3; O2SAT 99
[2022-06-21] MEDS: HYDROcodone/acetaminophen (*CRX) 5-325 MG TABLET 1 TAB PO ×2 (04:44→15:18)
[2022-06-21 06:21] LABS: Hematocrit 35.8 % (42.0-52.0); Mean Corpuscular HGB Conc 33.5 g/dl (32-36); Mean Corpuscular Hemoglobin 31.1 pg (26-34); Mean Corpuscular Volume 92.7 fl (80-100); Platelet Count Result 273 k/mm3 (150-375); Red Blood Count 3.86 M/mm3 (4.6-6.20); Red Cell Distribution Width 11.9 % (11.5-14.5); White Blood Count 10.6 K/mm3 (4.5-10.0)
[2022-06-21 06:50] LABS: Anion Gap 4 mmol/L (8-16); Blood Urea Nitrogen 15 mg/dL (9-20); Calcium 9.2 mg/dL (8.4-10.2); Carbon Dioxide 28 mmol/L (22-30); Chloride 102 mmol/L (98-107); Estimated CRCL calculation 103 ml/min; Estimated Glomerular Filt Rate > 60; Glucose 87 mg/dL (65-110); Potassium 3.6 mmol/L (3.4-5.0); Sodium 134 mmol/L (137-145)
[2022-06-21 06:58] LABS: CRP 23.1 mg/dL (<1.0)
[2022-06-21 08:00] VITALS: BP 137/78; PULSE 59; RESP 18; TEMP 36.2; O2SAT 97
[2022-06-21] MEDS: LEVOTHYROXINE SODIUM 150 MCG TABLET PO (08:02)
[2022-06-21] MEDS: PANTOPRAZOLE 40 MG TABLET PO (09:57)
[2022-06-21] MEDS: hydrALAZINE HCL 25 MG TABLET PO ×2 (09:58→13:52)
[2022-06-21 12:00] VITALS: BP 146/75; PULSE 69; RESP 18; TEMP 36.1; O2SAT 98
--- NOTE | 2022-06-21 13:29 | PM.IMPN ---
Progress Note: A&P Assessment and Plan (1) Abscess of sigmoid colon due to diverticulitis: Code(s): K57.20 - Diverticulitis of large intestine with perforation and abscess without bleeding Status: Acute Assessment and Plan: Presented with abdominal pain. CT of the abdomen/pelvis showed sigmoid diverticulitis with 10x25 mm pericolic abscess Continue IV Zosyn Appreciate general surgery consultation Continue low fat diet Monitor serial abdominal exams Analgesics as needed WBC and CRP improved today. (2) COVID-19: Code(s): U07.1 - COVID-19 Status: Acute Assessment and Plan: Symptom onset 06/14/22 with home positive test. Confirmatory PCR at this facility positive on 06/18/22. Patient asymptomatic. CXR with no evidence of pneumonia He has no supplemental oxygen requirement No indication for steroids or antivirals at this time Inflammatory markers are slightly elevated but this is likely attributed to acute diverticulitis Continue isolation precautions (3) Hypertension: Code(s): I10 - Essential (primary) hypertension Status: Acute Assessment and Plan: Blood pressures have been stable. Last BP 137/78 Home p.o. antihypertensives had been on hold while NPO and BP has been controlled off these medications. Resumed p.o. hydralazine. Continue to hold triamterene-hydrochlorothiazide and verapamil to avoid hypotension. Monitor BP trends and resume home medications as appropriate. (4) Hypothyroidism: Code(s): E03.9 - Hypothyroidism, unspecified Status: Acute Assessment and Plan: TSH is slightly elevated at 4.7 with normal T4 Continue p.o. levothyroxine (5) Gastroesophageal reflux disease: Code(s): K21.9 - Gastro-esophageal reflux disease without esophagitis Status: Acute Assessment and Plan: No acute issues Continue PO Protonix 40 mg daily Subjective Date/time seen: 06/21/22 13:29 Interval history: Date of service: 06/21/2022 Erlin Mullins is a 51-year-old male with a history of cerebral aneurysm s/p clamp hyperlipidemia, hypertension, hypothyroidism, and avascular necrosis of the left and right femoral head who is seen in follow-up for sigmoid diverticulitis with small pericolic abscess. He is feeling better today. His pain is improved. Currently he rates his pain as 6/10. Pain mostly concentrated in right lower quadrant area. He denies cramping or bloating. He is tolerating his diet. He is now having low fiber diet and he is very happy to be eating regular food. No nausea or vomiting. He had a bowel movement this morning. He denies fever or chills. Denies SOB, cough, congestion, chest pain, palpitations. Review of Systems Review of Systems: All systems reviewed & are unremarkable except as noted in HPI and below Exam Narrative: General: Well-nourished, well-appearing 51-year-old male, sitting up in bed, comfortable, NARD Neuro: awake, alert and oriented x4, speech clear, no focal neuro deficits noted HEENMT: normocephalic, atraumatic, EOMI, sclerae anicteric, moist oral mucosa Respiratory: clear to auscultation bilaterally, nonlabored breathing Cardio: regular rate, regular rhythm with S1-S2 Abdomen: nondistended, normoactive bowel sounds, soft, mildly tender to palpation in right lower quadrant Extremities: no edema, erythema, or tenderness to palpation, DP pulses 2+ bilaterally Skin: no rashes or lesions, warm and dry Psych: appropriate mood and affect, judgment and insight intact Objective Data Vital Signs Vital Signs: Vital Signs - 24 hr 06/20/22 16:00 06/20/22 17:20 06/20/22 20:00 Temperature 97.8 F 97.1 F L Pulse Rate 63 60 Respiratory Rate 18 16 Blood Pressure 121/71 139/73 Pulse Oximetry 98 98 99 Oxygen Delivery Room Air 06/20/22 20:00 06/21/22 00:00 06/21/22 04:00 Temperature 97.2 F L 97.4 F L Pulse Rate 60 63 61 Respiratory Rate 16 16 16 Blood Pr
--- NOTE | 2022-06-21 14:37 | PM.PNGS ---
Progress Note: A&P Assessment and Plan (1) Prostatic enlargement: Code(s): N40.0 - Benign prostatic hyperplasia without lower urinary tract symptoms Status: Acute Assessment and Plan: Discussed possible use of saw palmetto with the patient he will get consider this as an outpatient. (2) COVID-19: Code(s): U07.1 - COVID-19 Status: Acute Assessment and Plan: Seems fairly asymptomatic but complains of simple tiredness. (3) Abscess of sigmoid colon due to diverticulitis: Code(s): K57.20 - Diverticulitis of large intestine with perforation and abscess without bleeding Status: Acute Assessment and Plan: Patient is improving. I think he is ready to switch to oral antibiotics. I believe the best regimen may be Levaquin once a day plus metronidazole 3 times a day. (Discussed with hospitalist). Encouraged the patient's down low-fiber diet till after he sees me in 7-10 days. He has talk to the dietitian and will be getting home literature so that he can do that and then eventually switched to a high-fiber diet. I counseled him that the best we can avoid a future episode would be to get on and stay on a high-fiber diet and lose some weight. Patient has had a colonoscopy earlier this year we are trying to get the record from an outpatient center. Subjective Subjective Date/Time Seen: 06/21/22 14:37 Patient reports: no new complaints, feels better, still having pain (But it is minimal aching pain in the right lower quadrant.) and bowel movement (One or 2 a day still somewhat loose) Review of Systems Review of Systems: All systems reviewed & are unremarkable except as noted in HPI and below Constitutional: Constitutional: Reports as per HPI, Denies chills and Denies fever(s) Cardiovascular: Cardiovascular: Denies chest pain and Denies dyspnea Respiratory: Respiratory: Reports no additional respiratory complaints and Denies dyspnea Gastrointestinal: Gastrointestinal: Reports as per HPI and Denies bloating Musculoskeletal: Musculoskeletal: Reports no additional musculoskeletal complaints Neurologic: Denies memory loss Psychiatric: Psychiatric: Denies anxiety and Denies memory loss Exam Const: General: cooperative, comfortable, alert and awake Orientation/consciousness: patient oriented x3 HENMT: Head: normal to inspection Mouth: Yes moist mucous membranes Eyes: Sclera: sclerae normal Pupils: Equal, round and reactive pupils present Neck: Neck: normal visual inspection and no JVD Chest: Chest palpation & inspection: normal inspection of the chest Resp: Effort & Inspection: normal respiratory effort Auscultation: clear to auscultation bilaterally GI: Inspection: normal to inspection ( Perhaps slightly distended.) GI Palp: Yes abdominal tenderness ( Lower abdomen more right than left) Auscultation: normal bowel sounds Rectal Exam: deferred Neuro: General: patient oriented x3 Cranial nerves: Yes Equal, round and reactive pupils present Objective Data Vital Signs Vital Signs: Vital Signs - 24 hr 06/20/22 16:00 06/20/22 17:20 06/20/22 20:00 Temperature 36.6 C 36.2 C L Pulse Rate 63 60 Respiratory Rate 18 16 Blood Pressure 121/71 139/73 Pulse Oximetry 98 98 99 Oxygen Delivery Room Air 06/20/22 20:00 06/21/22 00:00 06/21/22 04:00 Temperature 36.2 C L 36.3 C L Pulse Rate 60 63 61 Respiratory Rate 16 16 16 Blood Pressure 149/79 H 138/80 Pulse Oximetry 99 97 99 Oxygen Delivery Room Air 06/21/22 08:00 06/21/22 08:00 Temperature 36.2 C L Pulse Rate 59 L Respiratory Rate 18 Blood Pressure 137/78 Pulse Oximetry 97 Oxygen Delivery Room Air Intake/Output Intake/Output: Intake & Output 06/18/22 06/19/22 06/20/22 06/21/22 23:59 23:59 23:59 23:59 Intake Total 2100 2200 1950 400 Output Total 1600 600 Balance 2100 600 1350 400 Meds/Results Medications: Active Medications Generic Name Dose Route Start Last A
--- NOTE | 2022-06-21 14:56 | PM.DS ---
DS: Admitting Diagnosis Discharge Date 06/21/2022 Admitting Diagnosis diverticulitis with abscess DS: Discharge Diagnosis Discharge Diagnosis (1) Abscess of sigmoid colon due to diverticulitis: Code(s): K57.20 - Diverticulitis of large intestine with perforation and abscess without bleeding Status: Acute Assessment and Plan: Presented with abdominal pain. CT of the abdomen/pelvis showed sigmoid diverticulitis with 10x25 mm pericolic abscess Treated with IV Zosyn He was seen in consultation by General surgery Symptoms gradually improved. Diet was able to be advanced and he was eventually able to tolerate a low-fat diet Supportive care provided White blood cell count with overall improvement, CRP with downward trend He will continue a low-fat diet and follow-up with General surgery as an outpatient in 1 week Patient had colonoscopy this year that was reportedly normal with no evidence of diverticula. Records have been requested to review colonoscopy report and this will be reviewed at his outpatient follow-up appointment as these records were not made available during his hospital stay. (2) COVID-19: Code(s): U07.1 - COVID-19 Status: Acute Assessment and Plan: Symptom onset 06/14/22 with home positive test. Confirmatory PCR at this facility positive on 06/18/22. Patient remained asymptomatic. CXR with no evidence of pneumonia He had no supplemental oxygen requirement No indication for steroids or antivirals Educated on COVID-19 isolation precautions (3) Hypertension: Code(s): I10 - Essential (primary) hypertension Status: Acute Assessment and Plan: Blood pressures reviewed and remained stable Continue home oral antihypertensive regimen (4) Hypothyroidism: Code(s): E03.9 - Hypothyroidism, unspecified Status: Acute Assessment and Plan: TSH is slightly elevated at 4.7 with normal T4 Continue p.o. levothyroxine Will need repeat reflex TSH in 4-6 weeks. 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 on presentation to the ED, he was afebrile, vital signs stable, white blood cell count 10.1, additional CBC and BMP unremarkable, CT of the abdomen/pelvis showed sigmoid diverticulitis with pericolic abscess. He was admitted to the hospitalist service for further evaluation management was seen in consultation by General surgery. Please see above for further details. He was treated with IV antibiotics and had symptomatic improvement. He was able to advance to a low-fiber diet. Given his overall improvement, he was determined to no longer require inpatient care and was discharged in hemodynamically stable condition on 06/21/2022. He will follow-up with General surgery as an outpatient. Discussed with the patient worrisome signs and symptoms for which to return and he was educated on his medications. He will continue taking levofloxacin and metronidazole as an outpatient to complete full course of antibiotic therapy. Status at Discharge Functional status at discharge: independent ambulation Overall status at discharge: patient is progressing back to baseline Time Spent with Patient Time attestation: Total time spent providing and/or coordinating discharge services: 45 minutes Time spent: Greater than 30 minutes Exam Narrative: General: Well-nourished, w
== END 2022-06-21 15:50 | disposition home or self-care (01) | DRG 244 ==
LOC: ANHED 13:11 → ANH3MEDSUR 18:16
PROVIDERS: Emergency Medicine; Physician Assistant; Admitting Provider Internal Medicine; Emergency Provider Emergency Medicine; PCP Emergency Medicine; Visit Provider Family Medicine
DX: K57.20 Diverticulitis of large intestine with perforation and abscess without bleeding (principal); U07.1 COVID-19; I10 Essential (primary) hypertension; E03.9 Hypothyroidism, unspecified; K21.9 Gastro-esophageal reflux disease without esophagitis; N40.0 Benign prostatic hyperplasia without lower urinary tract symptoms; E78.00 Pure hypercholesterolemia, unspecified; M16.10 Unilateral primary osteoarthritis, unspecified hip
CPT/HCPCS: 36415; 71045; 74177; 80048; 80053; 81001; 82728; 82948; 83605; 83690; 83735; 84439; 84443; 84480; 85025; 85027; 86140; 96361; 96374; 96375; 99285; A9270; C9113; C9803; J0131; J1170; J2270; J2405; J2543; J7030; Q9967; U0003; U0005

== ENCOUNTER 2022-10-15 10:18 | Outpatient (CLI) | payer OTHER, SELFPAY ==
[2022-10-15 15:27] LABS: Kit Draw Collected
== END 2022-10-15 10:19 | disposition home or self-care (01) ==
PROVIDERS: Hospitalist; PCP Emergency Medicine; Visit Provider Internal Medicine Endocrinology, Diabetes & Metabolism
DX: E03.9 Hypothyroidism, unspecified (principal)
CPT/HCPCS: 36415

== ENCOUNTER 2022-11-05 09:45 | Outpatient (RCR) | payer OTHER, SELFPAY ==
--- NOTE | 2022-09-26 12:31 | PTOPEVAL1 ---
Assessment and note entered by Eunice Cordon, PT Evaluation Information Assessment Status Evaluation Diagnosis L THR Onset 09/19/2022 Subjective Information Reports prior to pulling stitch, was doing well, did not have to put lots of weight through the walker. Was stopped and reached to right to move his father's walker and felt abrupt and sharp pain not a pop Pt reports MD has stated just range of motion activities and no strengthening at this time. Reported Pain Level Pain Score 8: Self Report Assessment PT Clinical Summary Pt presents s/p L THR 09/19/22. Was doing well until reach to his right and had immediate sharp pain in left glute. Reports prior to this his pain was low, and he was placing increased weight through LLE without issue, now he has more pain and has to put less weight through LLE. Pt also demo's decreased ROM (less than precautions allow) with significant compensatory torso motion, decreased strength in LLE hip, increased muscle tone and pain. Pt will benefit from physical therapy to address deficits and improve pt mobility to meet goals. Plan of Care Interventions Electrical Stimulation,Gait Training,Manual Therapy,Neuro Re-education,Therapeutic Activities, Therapeutic Exercise,Self-Care/Home Management Other Interventions [facility] PT Services Indicated Yes Treatment Frequency and 2x weekly x 6 weeks Duration These treatments will address the objective and functional deficits as defined above. The patient will be advanced safely and appropriately in order for the patient to progress towards his/her prior level of function. Additional exercises will be introduced and as well as a comprehensive home exercise program upon discharge, if needed, ?to ensure carryover of functional gains achieved in the clinic. This treatment plan has been reviewed and agreement upon by the patient.
--- NOTE | 2022-10-08 13:45 | PCPTNOTE ---
Patient canceled today's appointment due to father passing.
--- NOTE | 2022-10-29 16:04 | PCPTNOTE ---
Patient called to cancel appointment with medical front desk specialist.
--- NOTE | 2022-11-05 10:24 | PTOPDC ---
Assessment and note entered by Eunice Cordon, PT Assessment Status Discharge Diagnosis L THR Onset 09/19/2022 Subjective Information Pt reports feeling 98% better in left hip, with only 2% is because of new pinch around incision. Reported Pain Level Pain Score 1: Self Report Additional Pain Score Comments pinching with sitting Assessment PT Clinical Summary Pt demo's independent bed mobility, transfers, and ambulation without abnormality. Demo's functional ROM within precautions and greatly improved strength. Only discomfort at this time appears related to scar mobility and tissue adhesions which patient has been educated on care of. Pt does not demo need for continued therapy at this time, thus is being discharged from therapy services.
== END 2022-11-05 13:17 | disposition home or self-care (01) ==
LOC: ANHGOSHPT 09:45
PROVIDERS: PCP Emergency Medicine; Visit Provider Orthopaedic Surgery
DX: Z47.1 Aftercare following joint replacement surgery (principal); Z96.642 Presence of left artificial hip joint
CPT/HCPCS: 97014; 97110; 97116; 97140; 97161; 97530; G0283

== ENCOUNTER 2022-12-10 13:41 | Outpatient (CLI) | payer OTHER, SELFPAY ==
[2022-12-10 19:39] LABS: Basophils Absolute Auto 0.1 K/mm3 (0.0-0.1); Basophils Percent Auto 0.8 % (0.2-1.2); Eosinophils Absolute Auto 0.1 K/mm3 (0-0.3); Eosinophils Percent Auto 1.7 % (0-4.4); Hematocrit 41.8 % (42.0-52.0); Hemoglobin 13.5 g/dL (14.0-18.0); Immature Granulocyte Absolute 0.03 K/mm3 (0.00-0.031); Immature Granulocyte Percent A 0.4 % (0-0.5); Lymphocytes Absolute Auto 2.12 K/mm3 (0.9-3.2); Lymphocytes Percent Auto 27.2 % (18.3-44.2); Mean Corpuscular HGB Conc 32.3 g/dl (32-36); Mean Corpuscular Hemoglobin 30.2 pg (26-34); Mean Corpuscular Volume 93.5 fl (80-100); Mean Platelet Volume 10.7 fl (7.4-10.4); Monocytes Absolute Auto 0.7 K/mm3 (0.1-0.6); Neutrophils Absolute Auto 4.8 K/mm3 (1.3-6.7); Neutrophils Percent Auto 60.9 % (45.5-73.1); Platelet Count Result 363 k/mm3 (150-375); Red Blood Count 4.47 M/mm3 (4.6-6.20); Red Cell Distribution Width 12.7 % (11.5-14.5); White Blood Count 7.8 K/mm3 (4.5-10.0)
[2022-12-10 19:56] LABS: Add Urine Microscopic? NO; Appearance Urine Clear (Clear); Bilirubin Urine Negative (Negative); Blood Urine Negative (Negative); Color Urine Yellow (Yellow); Glucose Urine UA Negative (Negative); Ketones Urine Negative (Negative); Leukocyte Esterase Ur Negative LEU/UL (NEGATIVE); Nitrate Urine Negative (Negative); Protein Urine Negative (Negative); Specific Grav Ur 1.025 (1.001-1.035); Urobilinogen Urine 0.2 mg/dL (<2.0); pH Urine 6.5 (5.0-9.0)
[2022-12-10 20:35] LABS: Creatinine Urine 112.5 mg/dL
[2022-12-10 20:50] LABS: Total Protein Urine Random < 5 mg/dL
[2022-12-10 20:51] LABS: Ur Ttl Prot Creatinine Ratio < 0.04 mg/mg (0-0.20)
[2022-12-10 20:54] LABS: Vitamin D 25 Hydroxy 27.2 ng/mL
[2022-12-10 20:56] LABS: Albumin Level 4.8 g/dL (3.5-5.1); Anion Gap 7 mmol/L (8-16); Blood Urea Nitrogen 28 mg/dL (9-20); Calcium 9.9 mg/dL (8.4-10.2); Carbon Dioxide 25 mmol/L (22-30); Chloride 101 mmol/L (98-107); Estimated Glomerular Filt Rate > 60; Glucose 87 mg/dL (65-110); Phosphorus 3.1 mg/dL (2.5-4.5); Potassium 4.2 mmol/L (3.4-5.0); Sodium 133 mmol/L (137-145)
== END 2022-12-10 13:42 | disposition home or self-care (01) ==
LOC: ANHGOSHLAB 13:44
PROVIDERS: PCP Emergency Medicine
DX: I12.9 Hypertensive chronic kidney disease with stage 1 through stage 4 chronic kidney disease, or unspecified chronic kidney disease (principal); N18.31 Chronic kidney disease, stage 3a
CPT/HCPCS: 36415; 80069; 81003; 82306; 82570; 84156; 85025

== ENCOUNTER 2022-12-19 11:25 | Outpatient (CLI) | payer OTHER, SELFPAY ==
[2022-12-19 21:15] LABS: Anion Gap 8 mmol/L (8-16); Blood Urea Nitrogen 20 mg/dL (9-20); Calcium 9.7 mg/dL (8.4-10.2); Carbon Dioxide 24 mmol/L (22-30); Chloride 105 mmol/L (98-107); Cholesterol 181 mg/dL (0-200); Estimated Glomerular Filt Rate > 60; Glucose 101 mg/dL (65-110); HDL Direct 56 mg/dL; Iron 60 ug/dL (49-181); Potassium 4.1 mmol/L (3.4-5.0); Sodium 137 mmol/L (137-145); Triglycerides 91 mg/dL (<150)
[2022-12-19 21:26] LABS: LDL Cholesterol Direct 85 mg/dL
[2022-12-19 21:33] LABS: Free T4 Free Thyroxine 1.47 ng/mL (0.78-2.19)
== END 2022-12-19 11:26 | disposition home or self-care (01) ==
LOC: ANHGOSHLAB 11:27
PROVIDERS: PCP Emergency Medicine; Visit Provider Emergency Medicine
DX: E87.1 Hypo-osmolality and hyponatremia (principal); E03.9 Hypothyroidism, unspecified; D64.9 Anemia, unspecified
CPT/HCPCS: 36415; 80048; 80061; 83540; 84439; 84443

== ENCOUNTER 2023-02-21 09:33 | Emergency (ER) | payer OTHER, SELFPAY ==
--- NOTE | ~2023-02-21 | CT_ITS ---
EXAMINATION: CT abdomen pelvis w con DATE: 02/21/2023 12:24 INDICATION: Left lower quadrant abdominal pain. Prior complicated diverticulitis. TECHNIQUE: Computed tomography (CT) of the abdomen and pelvis was performed with 100 mL Omnipaque-350 intravenous contrast. Automated exposure control and iterative reconstruction technique were employe d. The dose-length product was 1132.19 mGy-cm. COMPARISON: 06/18/2022 FINDINGS: Lung bases are clear. Heart size is normal. No pericardial or pleural effusion. Liver, gallbladder, s pleen, pancreas and bilateral adrenal glands are normal. Bilateral renal cysts, the largest on the ri ght measuring 3 cm in the remaining all <1 cm. Again seen are several scattered diverticula predomina ntly along the sigmoid colon. There is inflammatory stranding along the proximal sigmoid colon which appears centered around 2 small ovoid regions of fat attenuation with thin rim of surrounding increas ed density and would favor epiploic appendagitis over diverticulitis. Minimal likely reactive retrope ritoneal fluid at the anteroinferior left hemipelvis. No abscess or free intraperitoneal gas or fluid . Small bowel and appendix are normal. Bladder is normal. Moderate sized bilateral fat-containing ing uinal hernias. No pathologically enlarged abdominal or pelvic lymphadenopathy. Interval left total h ip arthroplasty. No significant change in moderate sized region of osteonecrosis at the right femoral head without evident collapse of the articular surface. IMPRESSION: 1. Inflammatory stranding about the proximal sigmoid colon and favor epiploic appendage and is over u ncomplicated diverticulitis. 2. Moderate-sized bilateral fat-containing inguinal hernias. 3. Chronic osteonecrosis at the right femoral head with interval left total hip arthroplasty. Reviewed, dictated and finalized at location A. IMPRESSION: 1. Inflammatory stranding about the proximal sigmoid colon and favor epiploic a ppendage and is over uncomplicated diverticulitis. 2. Moderate-sized bilateral fat-containing inguinal hernias. 3. Chronic osteonecrosis at the right femoral head with interval left total hip arthroplasty.
[2023-02-21 09:58] VITALS: BP 128/81; PULSE 85; RESP 14; TEMP 36.6; O2SAT 99
[2023-02-21 10:16] LABS: Basophils Absolute Auto 0.1 K/mm3 (0.0-0.1); Basophils Percent Auto 0.8 % (0.2-1.2); Eosinophils Absolute Auto 0.3 K/mm3 (0-0.3); Eosinophils Percent Auto 3.3 % (0-4.4); Hematocrit 44.1 % (42.0-52.0); Hemoglobin 14.5 g/dL (14.0-18.0); Immature Granulocyte Absolute 0.04 K/mm3 (0.00-0.031); Immature Granulocyte Percent A 0.4 % (0-0.5); Lymphocytes Absolute Auto 2.04 K/mm3 (0.9-3.2); Lymphocytes Percent Auto 22.6 % (18.3-44.2); Mean Corpuscular HGB Conc 32.9 g/dl (32-36); Mean Corpuscular Hemoglobin 30.7 pg (26-34); Mean Corpuscular Volume 93.2 fl (80-100); Mean Platelet Volume 10.6 fl (7.4-10.4); Monocytes Absolute Auto 0.7 K/mm3 (0.1-0.6); Monocytes Percent Auto 7.8 % (2.6-8.5); Neutrophils Absolute Auto 5.9 K/mm3 (1.3-6.7); Neutrophils Percent Auto 65.1 % (45.5-73.1); Platelet Count Result 330 k/mm3 (150-375); Red Blood Count 4.73 M/mm3 (4.6-6.20); Red Cell Distribution Width 12.3 % (11.5-14.5)
[2023-02-21 10:17] LABS: Appearance Urine Clear (Clear); Bilirubin Urine Negative (Negative); Blood Urine Negative (Negative); Color Urine Yellow (Yellow); Glucose Urine UA Negative (Negative); Ketones Urine Negative (Negative); Leukocyte Esterase Ur Negative LEU/UL (Negative); Nitrate Urine Negative (Negative); Protein Urine Negative (Negative); Specific Grav Ur 1.018 (1.001-1.035); Urobilinogen Urine 0.2 mg/dL (<2.0); pH Urine 6.5 (5.0-9.0)
[2023-02-21 10:25] LABS: Alanine Aminotransferase 22 U/L (6-50); Albumin Level 4.8 g/dL (3.5-5.1); Alkaline Phosphatase 55 U/L (38-126); Anion Gap 10 mmol/L (8-16); Aspartate Amino Transferase 36 U/L (17-59); Bilirubin,Total 0.5 mg/dL (0.2-1.3); Blood Urea Nitrogen 18 mg/dL (9-20); Calcium 9.8 mg/dL (8.4-10.2); Carbon Dioxide 26 mmol/L (22-30); Chloride 103 mmol/L (98-107); Estimated CRCL calculation 105 ml/min; Estimated Glomerular Filt Rate > 60; Glucose 133 mg/dL (65-110); Lipase 73 U/L (23-300); Potassium 4.1 mmol/L (3.4-5.0); Sodium 139 mmol/L (137-145)
[2023-02-21 10:40] LABS: Add Urine Microscopic? NO
--- NOTE | 2023-02-21 10:57 | ED.ABDPAIN ---
HPI - Abdominal Pain General Chief Complaint: Abdominal Pain Stated Complaint: LLQ abdominal pain x 2 days - hx of diverticulitis Time Seen by Provider: 02/21/23 10:32 History of Present Illness HPI narrative: Patient is a 52-year-old male with a history of complicated diverticulitis here for evaluation of left lower quadrant pain x2 days. Patient states the pain is crampy in nature, worse with certain positions and when he sneezes. He states he also occasionally will feel a bulge in the left lower quadrant, has been told that he has a hernia that he has never sought treatment of. He denies any diarrhea, constipation, nausea, vomiting, fevers, chills. He has not had a colonoscopy in 2 years. Reportedly he was admitted to the hospital for his diverticulitis last year. Related Data Home Medications Medication Instructions Recorded Confirmed doxazosin 4 mg tablet 4 mg PO DAILY 02/15/22 07/22/22 fenofibrate 160 mg tablet 160 mg PO DAILY 02/15/22 07/22/22 hydralazine 25 mg tablet 25 mg PO TID 02/15/22 07/22/22 levothyroxine 150 mcg tablet 150 mcg PO DAILY 02/15/22 07/22/22 triamterene 37.5 1 tablet PO DAILY 02/15/22 07/22/22 mg-hydrochlorothiazide 25 mg tablet verapamil 240 mg tablet,extended 240 mg PO BID 02/15/22 07/22/22 release omeprazole 20 mg capsule,delayed 20 mg PO DAILY PRN Acid Reflux 06/18/22 07/22/22 release Allergies Allergy/AdvReac Type Severity Reaction Status Date / Time No Known Allergies Allergy Verified 02/21/23 09:34 Review of Systems Review of Systems: Gen.: Denies fevers or chills Eyes: Denies eye pain or visual change ENT: Denies congestion Respiratory: Denies shortness of breath or cough CV: Denies chest pain or palpitations GI: Reports abdominal pain denies burning, urgency, frequency or hematuria Musculoskeletal: Denies back pain or muscle pain Neuro: Denies numbness, tingling, weakness or focal weakness Skin: Denies rash Except as documented, all other systems reviewed and negative PMFSH Past Medical History Medical History Avascular necrosis of left femoral head Avascular necrosis of right femoral head Cerebral aneurysm (2000) Aneurysm ruptured and was coiled in [place]. Gastroesophageal reflux disease Gout Hypercholesterolemia Hypertension Hypothyroidism Osteoarthritis Overweight (BMI 25.0-29.9) Surgical History Surgical History Status post clamping of cerebral aneurysm Family History Family History Sibling Diverticulitis Social History Social History Social History: Surrogate medical decision maker: Felipa Barrera, sibling. Code status: Full code. Smoking status: Never smoker Alcohol intake: current Drinks per week: 4 Substance use: never Living arrangements: alone Spiritual care concerns: No Exam Narrative: APPEARANCE: Well appearing, no pain in distress, well-nourished. Head: Normocephalic and atraumatic. EYES: PERRLA/EOMI, conjunctivae clear NOSE: No nasal drainage EARS: External ear normal in appearance THROAT: Oropharynx is clear. Mucous membranes are moist. NECK: Supple. No adenopathy, no masses. RESPIRATORY: Airway patent, respirations nonlabored. Clear to auscultation bilaterally, no rales, rhonchi, wheezing. CARDIOVASCULAR: Regular rate and rhythm without murmurs, rubs, or gallops. ABDOMINAL: Tenderness to palpation in the left lower quadrant. No hernia palpated. No rebound tenderness or guarding. Normoactive bowel sounds. MUSCULOSKELETAL: Extremities are warm and well-perfused. Moves all extremities well. No edema. NEURO: Normal speech. No focal neurologic deficits. SKIN: Skin is warm and dry. No rashes. PSYCHIATRIC: Normal affect/mood. Course Vital Signs Vital signs: Vital Signs
[2023-02-21 11:26] LABS: Lactic Acid Reflex 1.1 mmol/L (0.7-2.0)
[2023-02-21] MEDS: DICYCLOMINE HCL INJ 20 MG/2 ML VIAL IM (11:46)
[2023-02-21 11:48] VITALS: BP 128/81; PULSE 75; RESP 16; O2SAT 99
[2023-02-21] MEDS: HYDROcodone/acetaminophen (*CRX) 5-325 MG TABLET 1 TAB PO (12:52)
[2023-02-21 12:53] VITALS: BP 140/78; PULSE 70; RESP 16; O2SAT 99
== END 2023-02-21 13:12 | disposition home or self-care (01) ==
PROVIDERS: Emergency Medicine; Emergency Provider Physician Assistant; PCP Emergency Medicine
DX: K63.89 Other specified diseases of intestine (principal); K40.20 Bilateral inguinal hernia, without obstruction or gangrene, not specified as recurrent; M87.851 Other osteonecrosis, right femur; I10 Essential (primary) hypertension; E78.00 Pure hypercholesterolemia, unspecified; E03.9 Hypothyroidism, unspecified; K21.9 Gastro-esophageal reflux disease without esophagitis; M10.9 Gout, unspecified
CPT/HCPCS: 36415; 74177; 80053; 81003; 83605; 83690; 85025; 96372; 99284; A9270; J0500; Q9967

== ENCOUNTER 2023-04-03 11:14 | Outpatient (CLI) | payer OTHER, SELFPAY ==
[2023-04-03 12:47] LABS: Appearance Urine Clear (Clear); Bilirubin Urine Negative (Negative); Blood Urine Negative (Negative); Color Urine Yellow (Yellow); Glucose Urine UA Negative (Negative); Ketones Urine Negative (Negative); Leukocyte Esterase Ur Negative LEU/UL (NEGATIVE); Nitrate Urine Negative (Negative); Protein Urine Negative (Negative); Specific Grav Ur 1.014 (1.001-1.035); Urobilinogen Urine 0.2 mg/dL (<2.0); pH Urine 6.5 (5.0-9.0)
[2023-04-03 12:49] LABS: Basophils Absolute Auto 0.1 K/mm3 (0.0-0.1); Basophils Percent Auto 0.9 % (0.2-1.2); Eosinophils Absolute Auto 0.1 K/mm3 (0-0.3); Eosinophils Percent Auto 1.9 % (0-4.4); Hematocrit 42.6 % (42.0-52.0); Hemoglobin 13.8 g/dL (14.0-18.0); Immature Granulocyte Absolute 0.03 K/mm3 (0.00-0.031); Immature Granulocyte Percent A 0.4 % (0-0.5); Lymphocytes Absolute Auto 1.82 K/mm3 (0.9-3.2); Lymphocytes Percent Auto 26.5 % (18.3-44.2); Mean Corpuscular HGB Conc 32.4 g/dl (32-36); Mean Corpuscular Hemoglobin 30.2 pg (26-34); Mean Corpuscular Volume 93.2 fl (80-100); Monocytes Absolute Auto 0.5 K/mm3 (0.1-0.6); Monocytes Percent Auto 7.8 % (2.6-8.5); Neutrophils Absolute Auto 4.3 K/mm3 (1.3-6.7); Neutrophils Percent Auto 62.5 % (45.5-73.1); Platelet Count Result 316 k/mm3 (150-375); Red Blood Count 4.57 M/mm3 (4.6-6.20); Red Cell Distribution Width 12.3 % (11.5-14.5); White Blood Count 6.9 K/mm3 (4.5-10.0)
[2023-04-03 12:53] LABS: Creatinine Urine 73.1 mg/dL
[2023-04-03 12:54] LABS: Add Urine Microscopic? NO
[2023-04-03 13:13] LABS: Albumin Level 4.6 g/dL (3.5-5.1); Anion Gap 9 mmol/L (8-16); Blood Urea Nitrogen 26 mg/dL (9-20); Calcium 9.6 mg/dL (8.4-10.2); Carbon Dioxide 25 mmol/L (22-30); Chloride 105 mmol/L (98-107); Estimated Glomerular Filt Rate > 60; Glucose 107 mg/dL (65-110); Phosphorus 2.8 mg/dL (2.5-4.5); Potassium 4.2 mmol/L (3.4-5.0); Sodium 139 mmol/L (137-145)
[2023-04-03 14:51] LABS: Total Protein Urine Random < 5 mg/dL
[2023-04-03 14:52] LABS: Ur Ttl Prot Creatinine Ratio < 0.07 mg/mg (0-0.20)
== END 2023-04-03 11:15 | disposition home or self-care (01) ==
LOC: ANHGOSHLAB 11:16
PROVIDERS: PCP Emergency Medicine; Visit Provider Hospitalist
DX: N18.2 Chronic kidney disease, stage 2 (mild) (principal)
CPT/HCPCS: 36415; 80069; 81003; 82306; 82570; 84156; 85025

== ENCOUNTER 2023-10-09 10:05 | Outpatient (CLI) | payer OTHER, SELFPAY ==
[2023-10-09 12:00] LABS: Appearance Urine Clear (Clear); Basophils Absolute Auto 0.1 K/mm3 (0.0-0.1); Basophils Percent Auto 0.7 % (0.2-1.2); Bilirubin Urine Negative (Negative); Blood Urine Negative (Negative); Color Urine Yellow (Yellow); Eosinophils Absolute Auto 0.2 K/mm3 (0-0.3); Eosinophils Percent Auto 2.4 % (0-4.4); Glucose Urine UA Negative (Negative); Hematocrit 46.1 % (42.0-52.0); Hemoglobin 14.8 g/dL (14.0-18.0); Immature Granulocyte Absolute 0.04 K/mm3 (0.00-0.031); Immature Granulocyte Percent A 0.5 % (0-0.5); Ketones Urine Negative (Negative); Leukocyte Esterase Ur Negative LEU/UL (NEGATIVE); Lymphocytes Absolute Auto 2.12 K/mm3 (0.9-3.2); Lymphocytes Percent Auto 28.5 % (18.3-44.2); Mean Corpuscular HGB Conc 32.1 g/dl (32-36); Mean Corpuscular Hemoglobin 30.3 pg (26-34); Mean Corpuscular Volume 94.5 fl (80-100); Monocytes Absolute Auto 0.8 K/mm3 (0.1-0.6); Monocytes Percent Auto 10.2 % (2.6-8.5); Neutrophils Absolute Auto 4.3 K/mm3 (1.3-6.7); Neutrophils Percent Auto 57.7 % (45.5-73.1); Nitrate Urine Negative (Negative); Platelet Count Result 297 k/mm3 (150-375); Protein Urine Negative (Negative); Red Blood Count 4.88 M/mm3 (4.6-6.20); Red Cell Distribution Width 12.3 % (11.5-14.5); Urobilinogen Urine 0.2 mg/dL (<2.0); White Blood Count 7.5 K/mm3 (4.5-10.0); pH Urine 6.5 (5.0-9.0)
[2023-10-09 12:05] LABS: Add Urine Microscopic? NO
[2023-10-09 12:12] LABS: Creatinine Urine 62.7 mg/dL
[2023-10-09 12:21] LABS: Hemoglobin A1C 5.1 % (<5.7)
[2023-10-09 12:35] LABS: Total Protein Urine Random < 5 mg/dL; Ur Ttl Prot Creatinine Ratio < 0.08 mg/mg (0-0.20)
[2023-10-09 12:38] LABS: Vitamin D 25 Hydroxy 37.4 ng/mL
[2023-10-09 12:42] LABS: Albumin Level 4.8 g/dL (3.5-5.1); Anion Gap 8 mmol/L (8-16); Blood Urea Nitrogen 23 mg/dL (9-20); Calcium 10.6 mg/dL (8.4-10.2); Carbon Dioxide 29 mmol/L (22-30); Chloride 104 mmol/L (98-107); Estimated Glomerular Filt Rate > 60; Glucose 95 mg/dL (65-110); Phosphorus 3.2 mg/dL (2.5-4.5); Potassium 4.1 mmol/L (3.4-5.0); Sodium 141 mmol/L (137-145)
== END 2023-10-09 10:06 | disposition home or self-care (01) ==
LOC: ANHGOSHLAB 10:06
PROVIDERS: PCP Emergency Medicine; Visit Provider Hospitalist
DX: I12.9 Hypertensive chronic kidney disease with stage 1 through stage 4 chronic kidney disease, or unspecified chronic kidney disease (principal); N18.2 Chronic kidney disease, stage 2 (mild)
CPT/HCPCS: 36415; 80069; 81003; 82306; 82570; 83036; 84156; 85025

== ENCOUNTER 2024-04-05 10:59 | Outpatient (CLI) | payer OTHER, SELFPAY ==
[2024-04-05 19:14] LABS: Appearance Urine Clear (Clear); Bilirubin Urine Negative (Negative); Blood Urine Negative (Negative); Color Urine Yellow (Yellow); Glucose Urine UA Negative (Negative); Ketones Urine Negative (Negative); Leukocyte Esterase Ur Negative LEU/UL (Negative); Nitrate Urine Negative (Negative); Protein Urine Negative (Negative); Specific Grav Ur 1.018 (1.001-1.035); Urobilinogen Urine 0.2 mg/dL (<2.0); pH Urine 5.5 (5.0-9.0)
[2024-04-05 19:30] LABS: Basophils Absolute Auto 0.1 K/mm3 (0.0-0.1); Eosinophils Absolute Auto 0.2 K/mm3 (0-0.3); Eosinophils Percent Auto 2.6 % (0-4.4); Hematocrit 40.6 % (42.0-52.0); Hemoglobin 13.4 g/dL (14.0-18.0); Immature Granulocyte Absolute 0.03 K/mm3 (0.00-0.031); Immature Granulocyte Percent A 0.4 % (0-0.5); Lymphocytes Absolute Auto 1.75 K/mm3 (0.9-3.2); Lymphocytes Percent Auto 25.5 % (18.3-44.2); Mean Corpuscular Hemoglobin 30.1 pg (26-34); Mean Corpuscular Volume 91.2 fl (80-100); Mean Platelet Volume 10.8 fl (7.4-10.4); Monocytes Absolute Auto 0.6 K/mm3 (0.1-0.6); Monocytes Percent Auto 8.7 % (2.6-8.5); Neutrophils Absolute Auto 4.2 K/mm3 (1.3-6.7); Neutrophils Percent Auto 61.8 % (45.5-73.1); Platelet Count Result 392 k/mm3 (150-375); Red Blood Count 4.45 M/mm3 (4.6-6.20); Red Cell Distribution Width 12.2 % (11.5-14.5); White Blood Count 6.9 K/mm3 (4.5-10.0)
[2024-04-05 19:32] LABS: Add Urine Microscopic? NO
[2024-04-05 19:33] LABS: Creatinine Urine 94.7 mg/dL
[2024-04-05 20:03] LABS: Vitamin D 25 Hydroxy 32.3 ng/mL
[2024-04-05 20:07] LABS: Total Protein Urine Random < 5 mg/dL; Ur Ttl Prot Creatinine Ratio < 0.05 mg/mg (0-0.20)
[2024-04-05 20:14] LABS: Albumin Level 4.7 g/dL (3.5-5.1); Anion Gap 11 mmol/L (4-12); Blood Urea Nitrogen 21 mg/dL (9-20); Calcium 10.2 mg/dL (8.4-10.2); Carbon Dioxide 23 mmol/L (22-30); Chloride 106 mmol/L (98-107); Estimated Glomerular Filt Rate > 60; Glucose 83 mg/dL (65-110); Phosphorus 3.7 mg/dL (2.5-4.5); Potassium 4.3 mmol/L (3.4-5.0); Sodium 140 mmol/L (137-145)
[2024-04-05 21:21] LABS: Hemoglobin A1C 5.1 % (<5.7)
== END 2024-04-05 11:00 | disposition home or self-care (01) ==
LOC: ANHGOSHLAB 11:01
PROVIDERS: PCP Emergency Medicine
DX: I12.9 Hypertensive chronic kidney disease with stage 1 through stage 4 chronic kidney disease, or unspecified chronic kidney disease (principal); N18.2 Chronic kidney disease, stage 2 (mild)
CPT/HCPCS: 36415; 80069; 81003; 82306; 82570; 83036; 84156; 85025; 97110; 97530

== ENCOUNTER 2024-04-14 10:15 | Outpatient (RCR) | payer OTHER, SELFPAY ==
--- NOTE | 2024-03-30 15:51 | OPREHPOC ---
Outpatient Therapy Plan of Care This is a Multidisciplinary Plan of Care that may contain components documented by all disciplines (PT, OT, and ST.) PT Problem 1 PT Problem #1 Knowledge Deficit PT Goal 1 Goal [place] with HEP Target Visit 4 PT Problem 2 PT Problem #2 Impaired Gait PT Goal 1 Goal Ambulate independent of AD with even stride length bilaterally Target Visit 8 PT Problem 3 PT Problem #3 Impaired Strength PT Goal 1 Goal Improve frankie hip abduction strength to 4/5 to improve lateral stability with gait and ADLs PT Goal 2 Goal Improve frankie hip flexion strength to 4+/5 to improve foot clearance with gait progression Target Visit 8 PT Problem 4 PT Problem #4 Impaired Functional Mobil PT Goal 1 Goal Patient will demonstrate ability to carry 10# object and traverse stairs for return to carry laundry to and from basement Target Visit 8
--- NOTE | 2024-03-30 15:51 | PTOPEVAL1 ---
Assessment and note entered by Jg Christianson, PT Evaluation Information Assessment Status Evaluation Diagnosis s/p R LAVERNE Onset 03/18/24 Subjective Information Reports that he is overall feeling fairly well. Deep achy pain is gone. Relying on walker for ambulation. He is still using a walker around the house as he does not feel comfortable with free walking. He has been having some trouble navigating stairs and needs help to do that. Has laundry downstairs and cannot currently do it requiring help. He has is left hip done 2 years ago and has an idea what to expect. Has a sock-aid to help with dressing. Reported Pain Level Pain Score 4: Self Report Assessment PT Clinical Summary Patient presents with signs and symptoms consistent with post operative LAVERNE. Patient overall is doing fairly well but is apprehensive with functional motion and mobility. Very reliant on wheeled walker for stability and mobility. Will benefit from skilled therapy to address these deficits for gross improved functional return and independent with gait and ADLs. Plan of Care Interventions Gait Training,Neuro Re-education,Therapeutic Activities,Therapeutic Exercise PT Services Indicated Yes Treatment Frequency and 2x/week for 8 visits Duration These treatments will address the objective and functional deficits as defined above. The patient will be advanced safely and appropriately in order for the patient to progress towards his/her prior level of function. Additional exercises will be introduced and as well as a comprehensive home exercise program upon discharge, if needed, ?to ensure carryover of functional gains achieved in the clinic. This treatment plan has been reviewed and agreement upon by the patient.
--- NOTE | 2024-04-16 16:34 | PTOPDC ---
Assessment and note entered by Jg Christianson, PT Evaluation Information Assessment Status Discharge - Pt Not Present Diagnosis s/p R LAVERNE Onset 03/18/24 Subjective Information Patient contacted clinic stating that he had been released by MD and would like to be released from PT at this time. Assessment PT Clinical Summary Patient requests discharge from skilled therapy at this time. He has seen overall improvement and is suitable for discharge. Please refer to last treatment note for D/C status. Plan of Care PT Services Indicated D/C to HEP
== END 2024-04-19 08:26 | disposition home or self-care (01) ==
LOC: ANHGOSHPT 10:15
PROVIDERS: PCP Emergency Medicine; Visit Provider Orthopaedic Surgery
DX: Z47.1 Aftercare following joint replacement surgery (principal); Z96.641 Presence of right artificial hip joint
CPT/HCPCS: 97110; 97161; 97530

== ENCOUNTER 2024-10-13 10:13 | Outpatient (CLI) | payer OTHER, SELFPAY ==
[2024-10-13 13:38] LABS: Hematocrit 45.4 % (42.0-52.0); Mean Corpuscular Hemoglobin 30.7 pg (26-34); Mean Platelet Volume 11.1 fl (7.4-10.4); Platelet Count Result 296 k/mm3 (150-375); Red Blood Count 4.88 M/mm3 (4.6-6.20); White Blood Count 6.9 K/mm3 (4.5-10.0)
[2024-10-13 14:04] LABS: Anion Gap 10 mmol/L (4-12); Blood Urea Nitrogen 20 mg/dL (9-20); Calcium 10.1 mg/dL (8.4-10.2); Carbon Dioxide 28 mmol/L (22-30); Chloride 99 mmol/L (98-107); Cholesterol 176 mg/dL (0-200); Estimated Glomerular Filt Rate > 60; Glucose 92 mg/dL (65-110); HDL Direct 57 mg/dL; Sodium 137 mmol/L (137-145); Triglycerides 151 mg/dL (<150)
[2024-10-13 14:22] LABS: LDL Cholesterol Direct 81 mg/dL
[2024-10-13 14:35] LABS: Prostate Specific Antigen 2.4 ng/mL (< OR = 4.0); Thyroid Stimulating Hormone 0.398 uIU/mL (0.465-4.680)
[2024-10-13 15:35] LABS: Hepatitis B Surface Antigen Negative (Negative)
[2024-10-13 15:41] LABS: HAV RESULT Negative (Negative); Hepatitis B Core IgM Result Negative (Negative)
[2024-10-13 15:53] LABS: Hepatitis C Virus Antibody Negative (Negative)
[2024-10-13 17:00] LABS: Parathyroid Intact < 14.5 pg/mL (14.5-75.2)
[2024-10-13 17:24] LABS: Free T4 Free Thyroxine 1.45 ng/mL (0.78-2.19)
== END 2024-10-13 10:14 | disposition home or self-care (01) ==
LOC: ANHGOSHLAB 10:16
PROVIDERS: PCP Emergency Medicine
DX: E03.9 Hypothyroidism, unspecified (principal); R94.5 Abnormal results of liver function studies; I10 Essential (primary) hypertension
CPT/HCPCS: 36415; 80048; 80061; 80074; 83970; 84153; 84439; 84443; 85027

== ENCOUNTER 2024-11-11 08:43 | Outpatient (CLI) | payer OTHER, SELFPAY ==
--- NOTE | ~2024-11-11 | US_ITS ---
Limited Abdominal Sonogram: Real-time sonographic imaging of the right upper quadrant was performed. Clinical History: Abnormal liver enzymes Findings: The liver appears mildly echogenic with no evidence of mass lesion or bile duct dilatation . Main portal vein demonstrates normal direction of flow. The gallbladder is well distended, and appe ars normal with no evidence of gallstone or wall thickening. The common bile duct measures 4 mm. The visualized pancreas, aorta, and IVC are unremarkable. Impression: Diffuse fatty infiltration of the liver. Reviewed, dictated and finalized at location M. RER Impression: Diffuse fatty infiltration of the liver.
== END 2024-11-11 08:44 | disposition home or self-care (01) ==
LOC: ANHIMG 08:47
PROVIDERS: PCP Emergency Medicine; Visit Provider Emergency Medicine
DX: K76.0 Fatty (change of) liver, not elsewhere classified (principal); R74.01 Elevation of levels of liver transaminase levels
CPT/HCPCS: 76705

== ENCOUNTER 2025-01-05 08:54 | Outpatient (CLI) | payer OTHER, SELFPAY ==
--- OUTSIDE RECORDS SUMMARY | 2025-01-05 09:12 | XMS_ITS | Encounter Summary ---
Author Organization [facility] Address [address] [place] [address] Care Team Providers Care [place] [employer] Supervisor Name Role Phone Imtiaz Bundy MD Primary Care Provider [phone] Victor Manuel Preston MD Unavailable [phone] Encounter Details Date Type Department Care Team (Late st Contact Info) Description 04/16/2017 [facility] [address] [address] Kandis Carey MA Social History Tobacco Use Types Packs/Day Years Used Date Smoking Tobacco: Never Smokeless Tobacco: Never Alcohol Use Standard Drinks/Week Comments Yes 12 (1 standard drink = 0.6 oz pu re alcohol) 12 drinks per week Comments Unknown Sex and Gender Information Value Date Recorded Sex Assigned at Unknown 12/15/2024 10:46 AM SUPERINTENDENT NONSELLING Legal Sex Male 10:26 PM CDT Gender Identity Not on file Sexual Orientation Not on file Occupation Industry Job Start Date Job End Date Not on file Not on file Not on file Not on file documented as of this encounter Progress Notes * LAUREN Spencer - 05/22/2018 11:42 AM CDT Pg pt send letter continue current meds * LAUREN Spencer - 06/02/2017 1:31 PM CDT Labs reviewed. No action needed. * LAUREN Spencer - 04/16/2017 2:57 PM CDT Labs from 5 months ago reviewed. No change in medication needed documented in this encounter Plan of Treatment Upcoming Encounters Date Type Department Care Team (Late st Contact Info) Description 12/21/2025 10:00 AM SUPERINTENDENT NONSELLING Office Visit [facility] [address], [place] [address] [place] [phone] Victor Manuel Preston MD [facility]. [address] [phone] documented as of this encounter Procedures Procedure Name Priority Date/Time Associated Diagnosis Comments HEMOGLOBIN, GLYCOSYLATED Routine 01/16/2022 COMPREHENSIVE METABOLIC PANEL Routine 01/16/2022 LIPID PANEL Routine 01/16/2022 CBC, MANUAL DIFF Routine 01/16/2022 THYROXINE, FREE (FT4) Routine 01/16/2022 THYROID STIM HORMONE TSH Routine 01/16/2022 LIPID PANEL Routine 01/15/2022 BASIC METABOLIC PANEL Routine 05/07/2018 LIPID PANEL Routine 05/07/2018 CBC (OUTSIDE LAB) Routine 05/30/2017 PROSTATE SPECIFIC ANTIGEN,TOTAL Routine 05/30/2017 HEPATIC FUNCTION PANEL Routine 05/30/2017 HEMOGLOBIN, GLYCOSYLATED Routine 05/30/2017 THYROXINE, FREE (FT4) Routine 05/30/2017 THYROID STIM HORMONE TSH Routine 05/30/2017 THYROXINE, FREE (FT4) Routine 02/03/2017 THYROID STIM HORMONE TSH Routine 02/03/2017 LIPID PANEL Routine 11/11/2016 documented in this encounter Results * COMPREHENSIVE METABOLIC PANEL (01/16/2022) SODIUM S/P/B 137 GLUCOSE 81 mg/dL AST 21 BUN 15 CREATININE S/P/B 0.79 0.7 - 1.3 CALCIUM S/P/B 9.9 POTASSIUM S/P/B 4.7 CHLORIDE S/P/B 105 ALT 16 GFR ESTIMATE 105 us Doc [facility] Final Result * LIPID PANEL (01/16/2022) CHOLESTEROL 156 TRIGLYCERIDES 150 HDL 55 LDL (CALCULATED) 76 NON HDL CHOLESTEROL 101 us Doc [facility] Final Result * CBC, MANUAL DIFF (01/16/2022) WBC 6.2 HGB 12.7 HCT 37.6 PLT 306 us Doc [facility] Final Result * THYROXINE, FREE (FT4) (01/16/2022) FREE T4 1.5 us Doc [facility] Final Result * HEMOGLOBIN, GLYCOSYLATED (01/16/2022) HGB A1C 5.0 % us Doc [facility] Final Result * THYROID STIM HORMONE, TSH (01/16/2022) TSH 3.66 us Doc [facility] Final Result * LIPID PANEL (01/15/2022) CHOLESTEROL 160 HDL 56 TRIGLYCERIDES 151 NON HDL CHOLESTEROL 104 LDL (CALCULATED) 79 01/15/2022 us Doc [facility] Final Result * (ABNORMAL) BASIC METABOLIC PANEL (05/07/2018) Pathologist [facility] SODIUM S/P/B 138 POTASSIUM S/P/B 4.3 CO2 25 CHLORIDE S/P/B 105 GLUCOSE 85 mg/dL CALCIUM S/P/B 9.7 BUN 19 CREATININE S/P/B 0.88 0.7 - 1.3 EGFR AFR. AMER. 119 EGFR NON-AFR. AMER. 103(A) <=90 05/07/2018 us Doc [facility] Final Result * LIPID PANEL (05/07/2018) [facility] CHOLESTEROL 173 HDL 62 TRIGLYCERIDES 75 NON HDL CHOLESTEROL 111 LDL (CALCULATED) 95 05/07/2018 us Doc [facility] Final Result * PROSTATE SPECIFIC ANTIGEN,TOTAL (05/30/2017) [facility] PSA 0.7 05/30/2017 us Doc [facility] Final Result * CBC (OUTSIDE LAB) (05/30/2017) [facility] WBC 7.0 HGB 13.0 HCT 38.1 PLT 334 05/30/2017 us Doc [facility]-OUTSIDE/ABSTRACTED Final Result * THYROXINE, FREE (FT4) (05/30/2017) [facility] FREE T4 1.6 05/30/2017 us Doc [facility] Final Result * THYROID STIM HORMONE, TSH (05/30/2017) TSH 3.48 05/30/2017 us Doc [facility] Final Result * HEMOGLOBIN, GLYCOSYLATED (05/30/2017) Pathologist [facility] HGB A1C 5.0 05/30/2017 us Doc [facility] Final Result * HEPATIC FUNCTION PANEL (05/30/2017) Pathologist [facility] ALBUMIN S/P/B 4.7 3.5 - 5.0 ALKALINE PHOSPHATASE S/P/B 34 ALT 16 AST 25 BILIRUBIN TOTAL S/P/B 0.5 TOTAL PROTEIN S/P/B 7.7 GLOBULIN 3.0 05/30/2017 us Doc [facility] Final Result * THYROXINE, FREE (FT4) (02/03/2017) Pathologist [facility] FREE T4 2.0 02/03/2017 us Doc [facility] Final Result * THYROID STIM HORMONE, TSH (02/03/2017) Pathologist [facility] TSH 1.970 02/03/2017 us Doc [facility] Edited Resul t - Final * LIPID PANEL (11/11/2016) Pathologist [facility] CHOLESTEROL 176 HDL 62 TRIGLYCERIDES 151 LDL (CALCULATED) 84 11/11/2016 us Doc [facility] Final Result documented in this encounter Visit Diagnoses Not on filedocumented in this encounter Care Teams [employer] [employer] Supervisor Relationship Specialty Start Date End Date Imtiaz Bundy MD [address] [phone] PCP - General FAMILY PRACTICE 05/01/16 Victor Manuel Preston MD Three [facility]. [address] [address] [employer] Machine Operator CARDIOVASCULAR DISEASE 05/01/16 documented as of this encounter
--- OUTSIDE RECORDS SUMMARY | 2025-01-05 09:12 | XMS_ITS | Patient Health Summary ---
Author Organization [facility] Address [address] [place] [address] Care Team Providers Care Estimating Manager Name Role Phone Imtiaz Bundy MD Primary Care Provider [phone] Note from [facility],non-owned Affiliates and Associated Physician Practices is amultiple site organization consisting of ambulatory clinics and hospital sitesin [place], [place], [place] and [place]. This disclosure is being madepursuant to the Care Everywhere program and may not contain all information available regarding this patient. Last updated 18.[facility] Allergies No known active allergies Medications * Be aware that medications may not be up to date on this document. Alwaysverify current medications with the patient. * verapamil CR (ISOPTIN-SR) 240 MG tablet(Started 02/01/2018) Take 480 mg by mouth every 12 hours 12 refills left * triamterene-hydroCHLOROthiazide (MAXZIDE-25) 37.5-25 MG tablet(Started 02/17/2018) Take 1 tablet by mouth once daily * lisinopril (PRINIVIL; ZESTRIL) 40 MG tablet(Started 02/01/2018) Take 40 mg by mouth once daily 1 refill left * hydrALAZINE (APRESOLINE) 25 MG tablet(Started 01/24/2018) Take 1 tablet by mouth 3 times daily 11 refills left * fenofibrate (LOFIBRA) 160 MG tablet(Started 02/16/2018) Take 160 mg by mouth at bedtime 2 refills left * doxazosin (CARDURA) 4 MG tablet(Started 02/17/2018) Take 4 mg by mouth at bedtime 1 refill left * allopurinol (ZYLOPRIM) 100 MG tablet(Started 02/18/2018) Take 100 mg by mouth once daily 2 refills left * omeprazole (PRILOSEC) 40 MG capsule Take 40 mg by mouth as needed * levothyroxine (SYNTHROID) 150 MCG tablet(Started 06/15/2020) Take 1 tablet by mouth once daily 3 refills by 06/15/2021 Active Problems Problem Noted Date Diagnosed Date Complex sleep apnea syndrome 08/25/2018 UARS (upper airway resistance syndrome) 08/25/20 18 Hypertension, secondary 05/12/2018 Hyperlipidemia 05/12/2018 Hypothyroidism (acquired) 05/12/2018 History of spontaneous subar achnoid intracranial hemorrhage due to cerebral aneurysm 05/12/2018 Nocturia 05/12/2018 Sleep related gastroesophageal reflux disease Brain aneurysm 10/22/2016 Essential hypertension 06/28/2016 Idiopathic chronic gout of left knee 06/28/2016 Resolved Problems Problem Noted Date Diagnosed Date Resolved Date 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 06/28/2016 08/20/2019 Social History Tobacco Use Types Packs/Day Years Used Date Smoking Tobacco: Never Smokeless Tobacco: Never Tobacco Cessation:Counseling Given: Yes Alcohol Use Standard Drinks/Week Comments No 0 (1 standard drink = 0.6 oz pur e alcohol) Sex and Gender Information Value Date Recorded Sex Assigned at Not on file Gender Identity Not on file Sexual Orientation Not on file Last Filed Vital Signs Vital Sign Reading Time Taken Comments Blood Pressure 130/68 06/15/2020 2:37 PM CDT Pulse 68 06/15/2020 2:37 PM CDT Temperature 36.6 ??C (97.9 ??F) 06/15/2020 2:37 PM CD T Respiratory Rate 18 06/15/2020 2:37 PM CDT Oxygen Saturation 98% 06/15/2020 2:37 PM CDT Inhaled Oxygen Concentration - - Weight 95.8 kg (211 lb 4.8 oz) 06/15/2020 2:37 P M CDT Height 180.3 cm (5' 11 ) 06/15/2020 2:37 PM CDT Body Mass Index 29.47 06/15/2020 2:37 PM CDT Procedures * CT ABDOMEN WO CONTRAST(Performed 08/02/2020) Performed for Hypertension, secondary * TSH(Performed 07/24/2020) * T4 FREE(Performed 07/24/2020) * METANEPHRINES FRACTIONATED PLASMA(Performed 07/24/2020) * TSH(Performed 10/05/2019) * T4 FREE(Performed 10/05/2019) * T4 FREE(Performed 05/18/2019) Performed for Hypothyroidism (acquired) * PTH INTACT(Performed 05/18/2019) Performed for Hypertension, secondary * CT ABDOMEN WO CONTRAST(Performed 05/14/2019) Performed for Adrenal cortical hyperfunction (HCC) * CREATININE URINE TIMED(Performed 02/13/2019) * TSH(Performed 02/11/2019) * METANEPHRINES FRACTIONATED PLASMA(Performed 02/11/2019) * T4 FREE(Performed 02/11/2019) Performed for Hypothyroidism (acquired) * XR PELVIS W LEFT HIP 2VW(Performed 01/25/2019) Performed for Pain of left hip joint * RENIN ACTIVITY(Performed 01/07/2019) * METANEPHRINES FRACTIONATED PLASMA(Performed 01/07/2019) * BASIC METABOLIC PANEL W/O EGFR(Performed 01/07/2019) * SC LARYNGOSCOPY,INDIRECT,DX(Performed 10/05/2018) Performed for UARS (upper airway resistance syndrome) * TSH(Performed 07/16/2018) * T4 FREE(Performed 07/16/2018) * SC SLEEP STUDY UNATT&RESP EFFT(Performed 06/21/2018) Performed for LENARD (obstructive sleep apnea) * TSH(Performed 01/27/2018) * METANEPHRINES FRACTIONATED PLASMA(Performed 01/27/2018) * RENIN ACTIVITY(Performed 01/27/2018) * BASIC METABOLIC PANEL (CALCIUM TOTAL)(Performed 01/27/2018) * T4 FREE(Performed 01/27/2018) * ALDOSTERONE URINE TIMED(Performed 01/27/2018) * METANEPHRINES FRACTIONATED PLASMA(Performed 10/04/2017) * CATECHOLAMINES URINE FRACTIONATED(Performed 09/18/2017) * METANEPHRINES FRACTIONATED URINE TIMED(Performed 09/18/2017) * CREATININE URINE TIMED(Performed 09/18/2017) * CORTISOL FREE URINE TIMED(Performed 09/05/2017) * METANEPHRINES FRACTIONATED URINE TIMED(Performed 09/05/2017) * CREATININE URINE TIMED(Performed 09/05/2017) * TSH(Performed 09/03/2017) * T4 FREE(Performed 09/03/2017) * ALDOSTERONE URINE TIMED(Performed 09/03/2017) * RENIN ACTIVITY(Performed 09/03/2017) * BASIC METABOLIC PANEL (CALCIUM TOTAL)(Performed 09/03/2017) * TSH(Performed 10/28/2016) * T4 FREE(Performed 10/28/2016) * T4 FREE(Performed 08/02/2016) * TSH(Performed 08/02/2016) * TSH W HAMA TREATMENT(Performed 06/28/2016) * THYROID PEROXIDASE ANTIBODY(Performed 06/28/2016) * TSH(Performed 06/28/2016) Results * CT ABDOMEN WO CONTRAST (08/02/2020 12:05 PM CDT) Only the most recent of2 resultswithin the time period is included. Anatomical Region Laterality Modality Abdomen Computed Tomogra phy 08/02/2020 3:02 PM CDT Impressions 08/02/2020 4:53 PM CDT IMPRESSION: 1. 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 Dictated by Hussain Gentile MD (interventional radiology rn). I, Dr. MAGGIE MARROQUIN have personally reviewed and interpreted this examination/study. This report was electronically signed by MAGGIE MARROQUIN ??on 08/02/2020 4:53 PM . Narrative 08/02/2020 4:53 PM CDT EXAMINATION: Computed tomography (CT) of the abdomen without contrast HISTORY: I15.9: Hypertension, secondary TECHNIQUE: CT of the abdomen was performed prior to contrast administration according to adrenal protocol. The precontrast images were evaluated and sufficiently answered the clinical question and contrast was not administered. FINDINGS: CT abdomen without contrast dated 05/14/2019 The aorta is atherosclerotic but normal in caliber. The visible lung bases are clear. The heart size is normal without pericardial effusion. The liver appears normal within the limits of this noncontrast study. The gallbladder is normal without evidence of wall thickening, pericholecystic fluid, or gallstones. The intrahepatic and extrahepatic bile ducts are nondilated. The spleen appears normal. The pancreas is normal. The bilateral kidneys are normal in size. There is a left renal cyst measuring up to 2.6 cm, unchanged. There is no evidence of renal calculus or hydronephrosis. A left adrenal myelolipoma is unchanged, measuring 15 mm. No other abnormality of the left adrenal gland is noted. The right adrenal gland appears normal. The distal esophagus and stomach appear normal. The visible portions of the small bowel and colon are normal in caliber without evidence of wall thickening or obstruction. No free air or free fluid is identified within the abdomen. There is no abdominal lymphadenopathy. Bone windows demonstrate no suspicious lytic or blastic lesions. The visible osseous structures are intact. Procedure Note Maggie Marroquin MD - 08/02/2020 EXAMINATION: Computed tomography (CT) of the abdomen without contrast HISTORY: I15.9: Hypertension, secondary TECHNIQUE: CT of the abdomen was performed prior to contrast administration according to adrenal protocol. The precontrast imageswere evaluated and sufficiently answered the clinical question and contrastwas not administered. FINDINGS: CT abdomen without contrast dated 05/14/2019 The aorta is atherosclerotic but normal in caliber. The visible lung bases are clear. The heart size is normal without pericardial effusion. The liver appears normal within the limits of this noncontrast study.The gallbladder is normal without evidence of wall thickening,pericholecystic fluid, or gallstones. The intrahepatic and extrahepatic bile ducts are nondilated. The spleen appears normal. The pancreas is normal. The bilateral kidneys are normal in size. There is a left renal cystmeasuring up to 2.6 cm, unchanged. There is no evidence of renal calculus or hydronephrosis. A left adrenal myelolipoma is unchanged, measuring 15 mm. No other abnormality of the left adrenal gland is noted. The right adrenal gland appears normal. The distal esophagus and stomach appear normal. The visible portions of the small bowel and colon are normal in caliber without evidence of wall thickening or obstruction. No free air or free fluid is identifiedwithin the abdomen. There is no abdominal lymphadenopathy. Bone windows demonstrate no suspicious lytic or blastic lesions. The visible osseous structures are intact. IMPRESSION: 1. 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 Dictated by Hussain Gentile MD (interventional radiology rn). I, Dr. MAGGIE MARROQUIN have personally reviewed and interpreted this examination/study. This report was electronically signed by MAGGIE MARROQUIN on 08/02/2020 4:53 PM. Leonardo Barkley MD CT ORDERABLES * (ABNORMAL) METANEPHRINES FRACTIONATED PLASMA (07/24/2020 11:07 AM CDT) Only the most recent of5 resultswithin the time period is included. Metanephrine Fract Free <25 <=57 pg/mL [facility] [place] Comment: This test was developed and its analytical performance characteristics have been determined by [employer] [place], [place]. It has not been cleared or approved by the U.S. Food and Drug Administration. This assay has been validated pursuant to the CLIA regulations and is used for clinical purposes. Normetanephrine Free 192(H) <=148 pg/mL [facility] [place] Comment: This test was developed and its analytical performance characteristics have been determined by [facility] [place], [place]. It has not been cleared or approved by the U.S. Food and Drug Administration. This assay has been validated pursuant to the CLIA regulations and is used for clinical purposes. Free Metanephrine + Normetanephrine 192 <=205 pg/mL [facility] [place] Comment: For additional information, please refer to http://education.V[employer]/faq/MetFractFree (This link is being provided for informational/educatio informational/educational purposes only.) Elevations >4-fold upper reference range: strongly suggestive of a pheochromocytoma(1). Elevations >1- 4-fold upper reference range: significant but not diagnostic, may be due to medications or stress. Suggest running 24 hr urine fractionated metanephrines and/or serum Chromagranin A for confirmation. Reference: (1)Sheila Young et al, Plasma Chromogranin A or Urine Fractionated Metanephrines Follow-Up Testing Improves the Diagnostic Accuracy of Plasma Fractionated Metanephrines for Pheochromocytoma. The Journal of Clinical Endocrinology # Metabolism 93(1), 91-95, 2008. This test was developed and its analytical performance characteristics have been determined by [facility] [place], [place]. It has not been cleared or approved by the U.S. Food and Drug Administration. This assay has been validated pursuant to the CLIA regulations and is used for clinical purposes. Test Performed at: [facility] [facility] [address] [place] [address] ??[phone] MARIAH PAULSON MD,PHD 07/24/2020 11:0 7 AM CDT 07/24/2020 11:09 AM CDT Leonardo Barkley MD LAB - CHEMISTRY HARSHIL BANKS Performing Organization Address [facility] de Phone Number [facility] [address] [place] [address] * TSH (07/24/2020 11:07 AM CDT) Only the most recent of9 resultswithin the time period is included. Pathologist [facility] TSH 1.80 0.40 - 4.50 mIU/L [facility] Comment: REPORT COMMENT: FASTING:NO Test Performed at: [facility] [address] [place] [address] ??[phone] JAGJIT WHITTINGTON DO,MPH 07/24/2020 11:0 7 AM CDT 07/24/2020 11:09 AM CDT Leonardo Barkley MD LAB - CHEMISTRY HARSHIL BANKS Performing Organization Address [facility] de Phone Number [facility] [id number] [place], [place] [id number] * T4 FREE (07/24/2020 11:07 AM CDT) Only the most recent of9 resultswithin the time period is included. Pathologist [facility] T4 Free 1.6 0.8 - 1.8 ng/dL [facility] Comment: Test Performed at: [facility] [address] ??[phone] JAGJIT WHITTINGTON DO,MPH 07/24/2020 11:0 7 AM CDT 07/24/2020 11:09 AM CDT Leonardo Barkley MD LAB - CHEMISTRY HARSHIL BANKS Performing Organization Address [facility] de Phone Number [facility] [address] [place] [address] * (ABNORMAL) PTH INTACT (05/18/2019 11:28 AM CDT) Pathologist [facility] PTH Intact 7(L) 14 - 64 pg/mL [facility] Comment: Interpretive Guide ?Intact PTH ? Calcium ? ------- Normal Parathyroid ?Normal ? Normal Hypoparathyroidism ?Low or Low Normal ?Low Hyperparathyroidism ?? Primary ?Normal or High ? High ?? Secondary ?High ? Normal or Low ?? Tertiary ? High ? High Non-Parathyroid ?? Hypercalcemia ?Low or Low Normal ?High REPORT COMMENT: FASTING:NO Test Performed at: [facility] ??[phone] JAGJIT WHITTINGTON DO,MPH Blood BLOOD SPECIMEN / Unknown 05/18/2019 11:28 AM CDT 05/18/2019 11:28 AM CDT Leonardo Barkley MD LAB - CHEMISTRY HARSHIL BANKS Performing Organization Address [facility] Phone Number [facility] [address] [place] [address] * (ABNORMAL) CREATININE URINE TIMED (02/13/2019 8:36 AM CDT) Only the most recent of3 resultswithin the time period is included. Creatinine 24 Hour Urine 2.18(H) 0.50 - 2.15 g/24 h [facility] Comment: TOTAL URINE VOLUME: 2400/24 REPORT COMMENT: SPLIT 02/11/2019 FROM [id number] FASTING:NO Test Performed at: [facility] [address] [place], [place] ??[phone] JAGJIT WHITTINGTON DO,MPH 02/13/2019 8:36 AM CDT 02/14/2019 4:37 AM CDT Leonardo Barkley MD LAB - URINE CHEMISTR Y ORDERABLES [facility] [address] [place] [address] * XR PELVIS W LEFT HIP 2VW (01/25/2019 12:58 PM FOOD SERVICE TECHNICIAN) Anatomical Region Laterality Modality Radiographic Laura ging 01/25/2019 3:04 PM FOOD SERVICE TECHNICIAN Impressions 01/25/2019 3:08 PM FOOD SERVICE TECHNICIAN IMPRESSION: 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 This report was electronically signed by KAYODE ORNELAS MD ??on 01/25/2019 3:08 PM . Narrative 01/25/2019 3:08 PM FOOD SERVICE TECHNICIAN Exam: ??XR PELVIS W LEFT HIP 2VW History: ??hip pain Comparison: None. Findings: There is abnormal sclerosis and lucency in the superior half the left femoral head consistent with avascular necrosis. A subchondral crescent sign is noted indicating a developing subchondral fracture, without collapse. There is mild osteoarthritis in the left hip with small osteophytes. The pelvic radiograph demonstrates no displaced fracture. There is abnormal sclerosis and lucency in the right femoral head indicating avascular necrosis on the right as well. Procedure Note Kayode Ornelas MD - 01/25/2019 Exam: XR PELVIS W LEFT HIP 2VW History: hip pain Comparison: None. Findings: There is abnormal sclerosis and lucency in the superior half the left femoral head consistent with avascular necrosis. A subchondral crescent sign is noted indicating a developing subchondral fracture, without collapse. There is mild osteoarthritis in the left hip with small osteophytes. The pelvic radiograph demonstrates no displaced fracture. There is abnormal sclerosis and lucency in the right femoral head indicating avascular necrosis on the right as well. 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 This report was electronically signed by KAYODE ORNELAS MD on01/25/2019 3:08 PM . Romana Clark PA-C DIAGNOSTIC IMAG ING ORDERABLES * (ABNORMAL) BASIC METABOLIC PANEL W/O EGFR (01/07/2019 9:00 AM FOOD SERVICE TECHNICIAN) Glucose 98 65 - 99 mg/dL [facility] Comment: ? Fasting reference interval BUN 23 7 - 25 mg/dL [facility] Creatinine 0.92 0.60 - 1.35 mg/dL [facility] BUN/Creatinine Ratio NOT APPLICABLE 6 - 22 (calc) [facility] Sodium 138 135 - 146 mmol/L [facility] Potassium 4.7 3.5 - 5.3 mmol/L [facility] Chloride 105 98 - 110 mmol/L [facility] CO2 27 20 - 32 mmol/L [facility] Calcium 10.4(H) 8.6 - 10.3 mg/dL [facility] Comment: Test Performed at: [facility] [address] [place] ??[phone] JAGJIT WHITTINGTON DO,MPH 01/07/2019 9:00 AM FOOD SERVICE TECHNICIAN 01/07/2019 9:01 AM FOOD SERVICE TECHNICIAN Leonardo Barkley MD LAB - CHEMISTRY HARSHIL BANKS Performing Organization Address [facility] de Phone Number [facility] [address] [place] [address] * (ABNORMAL) RENIN ACTIVITY (01/07/2019 9:00 AM FOOD SERVICE TECHNICIAN) Only the most recent of3 resultswithin the time period is included. Plasma Renin Activity 87.49(H) 0.25 - 5.82 ng/mL/h [facility] Comment: This test was developed and its analytical performance characteristics have been determined by [facility]. It has not been cleared or approved by FDA. This assay has been validated pursuant to the CLIA regulations and is used for clinical purposes. Test Performed at: [facility] [address] [place], [place] ??[phone] YUAN BOYER MD,PHD,GINNY 01/07/2019 9:00 AM FOOD SERVICE TECHNICIAN 01/07/2019 9:01 AM FOOD SERVICE TECHNICIAN Leonardo Barkley MD LAB - CHEMISTRY HARSHIL BANKS Performing Organization Address [facility] Co de Phone Number [facility] [address] [place] [phone] * SC LARYNGOSCOPY,INDIRECT,DX (10/05/2018 2:48 PM FOOD SERVICE TECHNICIAN) Narrative Alex Cruz MD - 10/05/2018 2:48 PM FOOD SERVICE TECHNICIAN René Haro MD ? 10/01/2018 ??5:10 PM Procedure Note Anesthesia: Lidocaine 2% and Syd-Synephrine 1/2% Endoscopy Type: ??Flexible Yxgoc-Rlvueppzagijem-Fpyrxqjjwuoo Procedure Details: Informed consent was obtained. ??The patient was placed in the sitting position. ??After topical anesthesia and decongestion, the 4 mm laryngoscope was passed. ??The nasal cavities, nasopharynx, oropharynx, hypopharynx, and larynx were all examined. ??Vocal cords were examined during respiration and phonation. Pt was additionally examined in the supine position, with particular attention paid to end-expiratory anatomy. The following findings were noted: 1. Normal uvula without edema, lesions, or masses. 2. Oral tonsils without lesions or masses 3. Mild left septal deviation, otherwise patent nasal passages bilaterally, no polypoid changes or purulence, and normal turbinates bilaterally. 4. Normal sinuses bilaterally with no purulence or drainage. 5. Palate elevates symmetrically. 6. Adenoids moderately inflamed and 50% obstructive in otherwise patent nasopharynx 7. Moderate to severe velum and lateral pharyngeal wall collapse with Christian maneuver. 8. Moderately posterior tongue base. 9. Epiglottis, AEfolds, TVFs, tongue base without lesions or masses 10. Normal interarytenoid folds without edema, erythema, or hypertrophy The patient tolerated procedure well. Complications: None Dr. Cruz was present for the entire procedure. René Haro MD PROCEDURE/MINOR SURG ICAL ORDERABLES * SC SLEEP STUDY UNATT&RESP EFFT (06/21/2018 1:57 PM CDT) Narrative Jasson Artis MD - 06/21/2018 1:57 PM CDT Jasson Artis MD ? 06/21/2018 ??1:57 PM HOME SLEEP STUDY Erlin Mullins 06/11/18 BRIEF HISTORY: Mr. Erlin Mullins, a 47 year old male (1970), referred for an Unattended Home Sleep Apnea Test (HSAT) to screen for obstructive sleep apnea syndrome. ??His neck size is 0 inches and his Mentmore score was reported as 0. ??His current height is 5? 0? , weight is 223.0 lbs and has a BMI of 43.9. ?? SUMMARY: Evidence of obstructive sleep apnea (G47.33) with a RDI of 73.6 events per hour associated with lowest oxygen desaturation of 73.0%. Supine RDI=88.7/hr, non-supine RDI=66.7/hr Pulse averaged 56.3 bpm. RECOMMENDATIONS: ?? Treatment of his obstructive sleep apnea syndrome with PAP therapy. Obtain and maintain ideal body weight. Given limitation of home sleep testing, consider further evaluation with full polysomnography and daytime sleepiness testing if clinically indicated. ?? METHODOLOGY: Unattended Home Sleep Test: ??Nocturnal HSAT was performed on 06/11/18 using recording parameters which include abdominal and thoracic respiratory effort, heart rate, body position, nasal airflow, with snoring and oximetry. ??Based on the review of the recorded signals the study quality is adequate for interpretation. The Paragon 28 Jr??, a 6-channel Type 3 home sleep respiratory recorder, was used to evaluate sleep-disordered breathing. ??The following parameters were recorded for a duration of 417.0minutes: Snoring (high frequency vibrationsin airflow), oronasal pressure Airflow, RIP Chest Effort, SpO2, Pulse Rate, Body Position, and User Events. Note: Respiratory events were scored using the following rules: Apneic events required a 90% or more reduction in airflow, Hypopneic events required a 30% reduction in airflow along with an accompanying 3% oxygen desaturation. RESPIRATORY EVENTS SUMMARY Total recording time was 495.8 minutes. Respiratory monitoring revealed 486 obstructive apneas, 1 mixed apneas, 7 central apneas and 114 partial upper airway obstructions (obstructive hypopneas). Resulting in a respiratory disturbance Index (RDI=LIYA) of 73.6 abnormal breathing events per hour of recording time. ??The Patient was supine for 31.7% of the recording with a supine RDI of 88.7; non-supine for 68.2% of the recording with a non-supine RDI of 66.7. ??Mean SaO2 was 92.8% and the lowest SaO2 was 73.0%. His saturations were above 90% for 84.6% of the recording. ??Recording noted steady snores. ?? Cardiac recording showed an average heart rate of 56.3 beats per minute, a max heart rate of 94.0 beats per minute and a minimum heart rate of 41.0 beats per minute. Body Position Supine Prone Left Side Right Side Total Non Supine % Time in Position 31.7% 0.0% 34.2% 34.0% 68.2% Snoring events 518 0 337 519 856 Apnea + Hypopnea events 232 0 174 202 376 Apnea + Hypopnea Index 88.7 0.0 61.5 72.0 66.7 OXIMETRY SpO2 Range ?? Total Index % Minutes ??Desaturations >4% 581 70.3 98-100 % 6.3% 30.9 ? 96-98 % 20.5% 101.0 ?? Mean Min. Max. 94-96% 17.3% 85.2 ??SpO2 (%) 92.8 73.0 99.0 92-94 % 20.9% 103.1 ??Pulse (BPM) 56.3 41.0 94.0 90-92 % 19.7% 97.2 ? 90-100 % 84.6% 417.4 ??PULSE Pulse Rate Range 80-89 % 15.0% 74.2 ?? % Minutes 70-79 % 0.2% 1.1 ??125-150 % 0.0% 0.0 60-69 % 0.0% 0.0 ??100-125 % 0.0% 0.0 50-59 % 0.0% 0.0 ??75-100% 1.8% 8.8 < 50% 0.1% 0.4 ??50-75 % 78.6% 387.6 ?25-50 % 19.5% 96.2 Total <88 % 7.5% 37.1 ? RESPIRATORY Total Index Duration (sec) ??BREATH STATS ? Mean Min. Max. ? Breaths 5171 625.7 2.1 0.6 14.9 ??Total Breaths 5171 Central Apneas 7 0.8 20.2 12.8 37.5 ??with FL 779 Obstructive Apneas 486 58.8 28.8 10.1 142.7 ??% FL Breaths 15.1% Mixed Apneas 1 0.1 32.9 32.9 32.9 ? Hypopneas 114 13.8 21.1 10.3 42.6 ? Apnea+Hypopnea 608 73.6 27.3 10.1 142.7 ? Snoring (Flow) 1376 166.5 0.7 0.2 4.4 ? Flow Limitation (FL) 361 43.7 0.7 0.6 1.9 ? Desaturations 581 70.3 27.0 8.2 209.0 ? RERAs 0 0.0 0.0 0.0 0.0 ? EVENTS BY BODY POSITION Supine Non-Supine Right Left Prone % Time in Position 31.7% 68.2% 34.0% 34.2% 0.0% Total Breaths 879 4282 1344 2938 0 Snoring (Flow) 518 856 519 337 0 Flow Limitation (FL) 0 360 2 358 0 Apneas + Hypopneas 232 [phone] Apnea + Hypopnea Index 88.7 66.7 72.0 61.5 0.0 SPO2 ?? PULSE ?? RESP BODYPOS ?? BAD ? Jasson Artis MD PROCEDURE/MINOR SURG ICAL ORDERABLES * ALDOSTERONE URINE TIMED (01/27/2018 10:58 AM FOOD SERVICE TECHNICIAN) Only the most recent of2 resultswithin the time period is included. [facility] Aldosterone 4 ng/dL [facility] ([facility]) Comment: ?? Adult Reference Ranges for Aldosterone, ?? LC/MS/MS: ?Upright 8:00-10:00 am ?< or = 28 ng/dL ?Upright 4:00-6:00 pm ? < or = 21 ng/dL ?Supine ??8:00-10:00 am ?3-16 ng/dL This test was developed and its analytical performance characteristics have been determined by [facility]. It has not been cleared or approved by FDA. This assay has been validated pursuant to the CLIA regulations and is used for clinical purposes. Test Performed at: [facility] [address] [place], [place] ??[address] YUAN BOYER MD,PHD,GINNY 01/27/2018 10:5 8 AM FOOD SERVICE TECHNICIAN 01/27/2018 11:01 AM FOOD SERVICE TECHNICIAN Leonardo Barkley MD LAB - URINE CHEMISTR Y ORDERABLES Performing Organization Address [facility] Co de Phone Number [facility] ([facility]) [address] * (ABNORMAL) BASIC METABOLIC PANEL (CALCIUM TOTAL) (01/27/2018 10:58 AM FOOD SERVICE TECHNICIAN) Only the most recent of2 resultswithin the time period is included. Glucose 93 65 - 99 mg/dL [facility] (U) Comment: ? Fasting reference interval BUN 28(H) 7 - 25 mg/dL [facility] ([facility]) Creatinine 1.07 0.60 - 1.35 mg/dL [facility] ([facility]) BUN/Creatinine Ratio 26(H) 6 - 22 (calc) [facility] ([facility]) Sodium 140 135 - 146 mmol/L [facility] ([facility]) Potassium 4.5 3.5 - 5.3 mmol/L [facility] ([facility]) Chloride 107 98 - 110 mmol/L [facility] ([facility]) CO2 23 20 - 31 mmol/L [facility] ([facility]) Calcium 10.0 8.6 - 10.3 mg/dL [facility] ([facility]) Comment: Test Performed at: [facility] ??[address] JAGJIT WHITTINGTON DO,MPH Blood specimen (specimen) BLOOD SPECIMEN / Unknown 01/27/2018 10:58 AM FOOD SERVICE TECHNICIAN 01/27/2018 11:01 AM FOOD SERVICE TECHNICIAN Leonardo Barkley MD LAB - CHEMISTRY ORDE RABLES Performing Organization Address [facility] Co de Phone Number [facility] (U) [address] * (ABNORMAL) CATECHOLAMINES URINE FRACTIONATED (09/18/2017 9:38 AM CDT) Pathologist [facility] Urine Volume 2700 mL [facility] ([facility]) Epinephrine 24 Hour Urine see note [facility] ([facility]) Comment: Results are below the reportable range for this analyte, which is 2.0 mcg/L. This test was developed and its analytical performance characteristics have been determined by [facility] [place] [place]. It has not been cleared or approved by the U.S. Food and Drug Administration. This assay has been validated pursuant to the CLIA regulations and is used for clinical purposes. Norepinephrine 24 Hour Urine 67 15 - 100 mcg/24 h [facility] ([facility]) Comment: This test was developed and its analytical performance characteristics have been determined by [facility] [place] [place]. It has not been cleared or approved by the U.S. Food and Drug Administration. This assay has been validated pursuant to the CLIA regulations and is used for clinical purposes. Calculated Total (E+NE) 67 26 - 121 mcg/24 h [facility] ([facility]) Comment: This test was developed and its analytical performance characteristics have been determined by [facility] [place] [place]. It has not been cleared or approved by the U.S. Food and Drug Administration. This assay has been validated pursuant to the CLIA regulations and is used for clinical purposes. Dopamine 24 Hour Urine 208 52 - 480 mcg/24 h [facility] ([facility]) Comment: ? This specimen was submitted with a pH greater than 5.0. ??Optimum pH for this assay is 1.0-5.0. Improper preservation may compromise the validity of the assay. ? This test was developed and its analytical performance characteristics have been determined by [facility] [place] [place]. It has not been cleared or approved by the U.S. Food and Drug Administration. This assay has been validated pursuant to the CLIA regulations and is used for clinical purposes. Creatinine 24 Hour Urine 2.61(H) 0.63 - 2.50 g/24 h [facility] ([facility]) Comment: REPORT COMMENT: FASTING:NO Test Performed at: [facility] ??[address] MARIAH PAULSON MD,PHD 09/18/2017 9:38 AM CDT 09/18/2017 9:38 AM CDT Leonardo Barkley MD LAB - URINE CHEMISTR Y ORDERABLES [facility] ([facility]) * (ABNORMAL) METANEPHRINES FRACTIONATED URINE TIMED (09/18/2017 9:36 AM CDT) Only the most recent of2 resultswithin the time period is included. Urine Volume 2700 mL [facility] ([facility]) Metanephrine 130 58 - 203 mcg/24 h [facility] ([facility]) Comment: This test was developed and its analytical performance characteristics have been determined by [facility] [place] [place]. It has not been cleared or approved by the U.S. Food and Drug Administration. This assay has been validated pursuant to the CLIA regulations and is used for clinical purposes. Normetanephrine 860(H) 88 - 649 mcg/24 h [facility] ([facility]) Comment: This test was developed and its analytical performance characteristics have been determined by [facility] [place] [place]. It has not been cleared or approved by the U.S. Food and Drug Administration. This assay has been validated pursuant to the CLIA regulations and is used for clinical purposes. Metanephrine Total 990(H) 182 - 739 mcg/24 h [facility] ([facility]) Comment: A four fold elevation of urinary normetanephrines is extremely likely to be due to a tumor, while a four fold elevation of urinary metanephrines is highly suggestive, but not diagnostic of the tumor. Measurement of plasma Metanephrines and Chromogranin A is recommended for confirmation. REPORT COMMENT: FASTING:NO Test Performed at: [facility] ??[address] MARIAH PAULSON MD,PHD 09/18/2017 9:36 AM CDT 09/18/2017 9:36 AM CDT Leonardo Barkley MD LAB - URINE CHEMISTR Y ORDERABLES [facility] ([facility]) * (ABNORMAL) CORTISOL FREE URINE TIMED (09/05/2017 9:11 AM CDT) Volume (UVOL) 2400 mL [facility] ([facility]) Cortisol Free Urine 14.6 4.0 - 50.0 mcg/24 h [facility] ([facility]) Comment: #VALUE! Analysis performed by [employer] Cortisol Free Urine 4.9 mcg/g creat [facility] ([facility]) Comment: ?Reference Range: ?ADULTS: 3.1-42.3 ?? #VALUE! Creatinine Urine 2.98(H) 0.63 - 2.50 g/24 h [facility] ([facility]) Comment: This test was developed and its analytical performance characteristics have been determined by [facility]. It has not been cleared or approved by FDA. This assay has been validated pursuant to the CLIA regulations and is used for clinical purposes. REPORT COMMENT: SPLIT 09/03/2017 FROM [id number] Test Performed at: [facility] [address] [place], [place] ??[address] TREVER MENDOZA MD PHD 09/05/2017 9:11 AM CDT 09/05/2017 9:12 AM CDT Leonardo Barkley MD LAB - URINE CHEMISTR Y ORDERABLES [facility] ([facility]) * (ABNORMAL) TSH W HAMA TREATMENT (06/28/2016 1:09 PM CDT) Pathologist [facility] TSH HAMA Treated 17.93(H) SEE BELOW mIU/L [facility] ([facility]) TSH Untreated 17.42(H) 0.40 - 4.50 mIU/L [facility] ([facility]) Comment: Male Reference Ranges for TSH: Premature Infants, (28-36) weeks ?? 1st week of life ? 0.20-27.90 mIU/L Term infants, (>37 weeks) Serum or Cord Blood ? 1.00-39.00 mIU/L ?1-2 days ?3.20-34.60 mIU/L ?3-4 days ?0.70-15.40 mIU/L ?5 days-4 weeks ?1.70-9.10 mIU/L ? 1-11 months ?0.80-8.20 mIU/L ?1-19 years ?0.50-4.30 mIU/L ? > or = 20 years ?0.40-4.50 mIU/L TSH levels decline rapidly during the first week of life in most children, but may remain transiently elevated in a few individuals despite normal free T4 levels. For proper interpretation of an abnormal TSH from a thyroid screen, a Free T4 by [place] (TC [address]) or T4, Total (Thyroxine) (TC [address]) should be considered. For additional information, please refer to http://education.[employer]/faq/VHX539 (This link is being provided for informational/educational purposes only.) Test Performed at: [facility] [address] [place], [place] ??[address] TREVER MENDOZA MD PHD 06/28/2016 1:09 PM CDT 06/28/2016 1:09 PM CDT Leonardo Barkley MD LAB - CHEMISTRY HARSHIL BANKS [facility] Organization Address City/State/ZIP Co de Phone Number [facility] ([facility]) * (ABNORMAL) THYROID PEROXIDASE ANTIBODY (06/28/2016 1:09 PM CDT) Thyroid Peroxidase TPO Antibody 671(H) <9 IU/mL [facility] ([facility]) Comment: Test Performed at: [facility] [address] [place], [place] ??[address] JAGJIT WHITTNIGTON DO,MPH Blood specimen (specimen) BLOOD SPECIMEN / Unknown 06/28/2016 1:09 PM CDT 06/28/2016 1:09 PM CDT Leonardo Barkley MD LAB - CHEMISTRY HARSHIL BANKS [facility] ([facility]) Care Teams Estimating Manager Relationship Specialty Start Date End Date Imtiaz Bundy MD [address] [facility] [address] [place] [address] PCP - General 04/07/18
--- OUTSIDE RECORDS SUMMARY | 2025-01-05 09:12 | XMS_ITS | Clinical Summary ---
Author Organization [facility] Address [address] [place] [address] Care Team Providers Care Patient Access Manager Name Role Phone Victor Manuel Preston MD Unavailable [phone] Imtiaz Bundy MD Primary Care Provider [phone] Augustus Brooke MD Unavailable Taz Randhawa MD Unavailable [phone] Allergies No known active allergies Medications triamterene-hyd roCHLOROthiazid e 37.5-25 mg per tablet Take 1 tablet/capsu le by mouth daily 10/30/2020 Active fenofibrate (TRIGLIDE) 160 mg tablet Take 1 tablet (160 mg total) by mouth daily 02/16/2018 Active doxazosin (CARDURA) 4 mg tablet Take 1 tablet (4 mg total) by mouth daily 10/10/2020 Active cholecalciferol (VITAMIN D-3) 25 mcg (1,000 unit) tablet Take 1 tablet (1,000 Units total) by mouth daily Active omeprazole (PriLOSEC) 20 mg capsule Take 1 capsule (20 mg total) by mouth daily as needed Active lisinopriL (PRINIVIL,ZESTR IL) 30 mg tablet Take 1 tablet (30 mg total) by mouth daily 10/14/2022 Active levothyroxine (SYNTHROID) 175 mcg tablet Take 1 tablet (175 mcg total) by mouth daily Takes a 1300(1 PM) Active verapamil SR (CALAN SR) 120 mg CR tablet Take 1 tablet (120 mg total) by mouth daily Active Active Problems Problem Noted Date Diagnosed Date Chronic kidney disease, stage 2 (mild) 05/03/202 4 Pure hyperglyceridemia 04/02/2024 Osteonecrosis 03/18/2024 Osteonecrosis of right hip 02/13/2024 Vitamin D deficiency 04/22/2023 Status post total replacement of left hip 2021 Primary hypothyroidism 08/15/2022 Assessment & Plan (07/22/2023 11:23 AM CDT): Patient is clinically euthyroid TSH was normal at 1.49 on 01/21/23 Plan: Continue same dose of Levothyroxine The proper way of taking Levothyroxine reviewed with patient. Check TSH. I will adjust the dose based on lab results. Assessment & Plan (01/21/2023 11:13 AM WATCH ENGINE OPERATOR): Patient is clinically euthyroid TSH was high at 10.8 on 08/15/22 Plan: Continue same dose of Levothyroxine The proper way of taking Levothyroxine reviewed with patient. Check TSH. I will adjust the dose based on lab results. Assessment & Plan (08/15/2022 10:29 AM CDT): Patient is clinically euthyroid TSH was high ar 9.6 on 07/01/22 This could be caused by illness or interference with absorption Plan: Continue same dose of Levothyroxine The proper way of taking Levothyroxine reviewed with patient. Check TSH in 4-6 weeks I will adjust the dose based on lab results. Primary hypertension 08/15/2022 Assessment & Plan (07/22/2023 11:34 AM CDT): Chronic , controlled - continue same medication per PCP Assessment & Plan (01/21/2023 11:20 AM WATCH ENGINE OPERATOR): Chronic , controlled - continue same medication per PCP Assessment & Plan (08/15/2022 10:29 AM CDT): Chronic , controlled - continue same medication per PCP Osteonecrosis of left hip 08/01/2022 Overview (08/01/2022): Added automatically from request for surgery [id number] Complex sleep apnea syndrome 08/25/2018 Overview (04/02/2024): Evidence of Complex sleep apnea (G47.33) with a RDI of 73.6 events per hour associated with lowest oxygen 11 June 2018 101 kg, home testing and emergence of central events on therapy. Evidence of Complex sleep apnea (G47.33) with a RDI of 73.6 events per hour associated with lowest oxygen 11 June 2018 101 kg, home testing and emergence of central events on therapy. 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 aneurysm 05/12/2018 Hyperlipidemia 05/12/2018 Nocturia 05/12/2018 Sleep related gastroesophageal reflux disease Intracranial aneurysm 10/22/2016 Acquired atrophy of thyroid 06/28/2016 Idiopathic chronic gout of left knee 06/28/2016 Surgical History Surgery Date Site/Laterality Comments ARTERIAL ANEURYSM REPAIR 12/01/2000 - 11/30/2001 [facility] COLONOSCOPY JOINT REPLACEMENT 09/19/2022 Left total hip JOINT REPLACEMENT 03/18/2024 Right total hip Medical History Medical History Date Comments Osteoarthritis GERD (gastroesophageal reflux disease) managed with meds Hypertension Sleep apnea can't tolerate C PAP Wears glasses Tooth missing has a few missin g Diverticulitis last flare up 2021, hospitalized, abx History of gout no longer taking Allopurinol daily, only prn Brain aneurysm 2000 surgical repair at [place] Hemorrhoids occ blood in sto ol Osteonecrosis (HCC) Retention of urine c/o burning/p oor flow, will f/u with primary. urine negative 09/10/22 Hypothyroidism Left inguinal hernia Bradycardia asymptomatic Family History Medical History Relation Name Comments Arthritis Father Heart disease Father Arthritis Mother Cancer Mother Relation Name Status Comments Father Mother Social History Tobacco Use Types Packs/Day Years Used Date Smoking Tobacco: Never Tobacco Cessation:Counseling Given: Not Answered Alcohol Use Standard Drinks/Week Comments Yes 0 (1 standard drink = 0.6 oz pur e alcohol) [facility] Utilities Answer Date Recorded In the past 12 months has [employer] gas, oil, or water BRAIN threatened to shut off services in your home? No 03/18/2024 Social Connection and Isolat ion Panel [NHANES] Answer Date Recorded In a typical week, how many times do you talk on the phone with family, friends, or neighbors? More than three times a week 03/18/2024 How often do you get togethe r with friends or relatives? More than three times a week 03/18/2024 How often do you attend chur ch or catholic services? Never 03/18/2024 Do you belong to any clubs o r organizations such as jew groups, unions, fraternal or athletic groups, or school groups? No 03/18/2024 How often do you attend meet ings of the clubs or organizations you belong to? Never 03/18/2024 Are you , , di vorced, , never , or living with a partner? Never 03/18/2024 AUDIT-C Answer Date Recorded Q1: How often do you have a drink containing alcohol? 4 or more times a week 03/18/2024 Q2: How many drinks containi ng alcohol do you have on a typical day when you are drinking? 3 or 4 Q3: How often do you have si x or more drinks on one occasion? Never 03/18/2024 Overall Financial Resource Strain (CARDIA) Answe r Date Recorded How hard is it for you to pa y for the very basics like food, housing, medical care, and heating? Not hard at all 03/18/2024 Hunger Vital Sign Answer Date Recorded Within the past 12 months, y ou worried that your food would run out before you got the money to buy more. Never true 03/18/20 24 Within the past 12 months, t he food you bought just didn't last and you didn't have money to get more. Never true 03/18/2024 PRAPARE - Transportation Answer Date Re corded In the past 12 months, has l ack of transportation kept you from medical appointments or from getting medications? No 03/01 In the past 12 months, has l ack of transportation kept you from meetings, work, or from getting things needed for daily living? No 03/18/2024 Housing Stability Vital Sign Answer Alec e Recorded In the last 12 months, was t here a time when you were not able to pay the mortgage or rent on time? No 03/18/2024 In the last 12 months, how many places have you lived? 1 03/18/2024 In the last 12 months, was t here a time when you did not have a steady place to sleep or slept in a mcfp (including now)? No 03/18/2024 Personal Safety Answer Date Recorded Have you ever been in or are you currently in a harmful physical or emotional relationship or is someone making you feel afraid or unsafe? Denies 03/18/2024 Sex and Gender Information Value Date Recorded Sex Assigned at Not on file Legal Sex Male 4:08 PM WATCH ENGINE OPERATOR Gender Identity Not on file Sexual Orientation Not on file Occupation Industry Job Start Date Job End Date unemployed Not on file Not on file Not on file Obstetrics History Last Filed Vital Signs Vital Sign Reading Time Taken Comments Blood Pressure 134/84 03/19/2024 12:17 PM CDT Pulse 61 03/19/2024 12:17 PM CDT Temperature 36.4 ??C (97.5 ??F) 03/19/2024 12:17 PM C DT Respiratory Rate 17 03/19/2024 12:17 PM CDT Oxygen Saturation 96% 03/19/2024 12:17 PM CDT Inhaled Oxygen Concentration - - Weight 100.7 kg (222 lb) 04/16/2024 9:57 AM CDT Height 180.3 cm (5' 11 ) 04/16/2024 9:57 AM CDT Body Mass Index 30.96 04/16/2024 9:57 AM CDT Plan of Treatment Health Maintenance Due Date Last Done Comments Colon Cancer Screening-Colonoscopy 1971 Depression Screening 1971 Hepatitis C Screening 1971 Prostate Cancer Screening-PSA 1971 DTaP/Tdap/Td Vaccine (1 - Tdap) 1982 Regular Well Visit/Exam 18-64 1989 Zoster Vaccine (1 of 2) 2021 Covid-19 Vaccine (3 - 2023-2 5 season) 2024 05/09/2021, 04/06/2021 Influenza Vaccine (#1) 2024 Pneumococcal vaccine <65 Aged Out No longer eligible based on patient's age to complete this topic Medical Devices Implanted Type Area Coffee Sommelier Device Identifier Shelf Expiration Date Model / Serial / Lot [employer]/ Ortho Reflection R3 Thread Acetabulum Cover Hole [id number] - [id number] Implanted:Qty: 1 on 09/19/2022 by Taz Randhawa MD at [facility] Left: Hip [employer]/Or tho 08/16/2032 [id number] / / [id number] [employer]/ Ortho R3 58mm 36mm Hip 20d Liner Acetabular Xlpe [id number] - [id number] Implanted:Qty: 1 on 09/19/2022 by Taz Randhawa MD at [facility] Left: Hip [employer]/Or tho [id number] 07/10/2031 [id number] / / [id number] [employer]/ Ortho R3 58mm 3 Hole Standard Shell Acetabular Poly [id number] - [id number] Implanted:Qty: 1 on 09/19/2022 by Taz Randhawa MD at [facility] Left: Hip [employer]Or tho [id number] 04/19/2032 [id number] / / [id number] [employer]/ Ortho Reflection 6.5mm 25mm Hip Acetabular Cancellous [place] Full [id number] - [id number] Implanted:Qty: 1 on 09/19/2022 by Taz Randhawa MD at [facility] Left: Hip [employer]Or tho [id number] 06/22/2030 [id number] / / [id number] [employer]/ Ortho Synergy 14mm 160mm Standard Offset Hip Stem Femoral Porous [id number] - [id number] Implanted:Qty: 1 on 09/19/2022 by Taz Randhawa MD at [facility] Left: Hip [employer]Or tho [id number] 05/20/2032 [id number] / / [id number] [employer]/ Ortho 36mm Hip +8mm 12/14 Head Femoral Oxinium [id number] - [id number] Implanted:Qty: 1 on 09/19/2022 by Taz Randhawa MD at [facility] Left: Hip [employer]Or tho [id number] 05/24/2032 [id number] / / [id number] [employer]/ Ortho Reflection R3 Contour 6.5mm 25mm Spherical Head Hip Acetabular [id number] - [id number] Implanted:Qty: 1 on 03/18/2024 by Taz Randhawa MD at [facility] Right: Hip [employer]Or tho [id number] 09/20/2033 [id number] / / [id number] [employer]/ Ortho Synergy 14mm 160mm Standard Offset Hip Stem Femoral Porous [id number] - [id number] Implanted:Qty: 1 on 03/18/2024 by Taz Randhawa MD at [facility] Right: Hip [employer]Or tho [id number] 12/05/2033 [id number] / / [id number] [employer]/ Ortho 36mm Hip +8mm 14 Head Femoral Oxinium [id number] - [id number] Implanted:Qty: 1 on 03/18/2024 by Taz Randhawa MD at [facility] Right: Hip [employer]Or tho [id number] 12/29/2033 [id number] / / [id number] [employer]/ Ortho Reflection R3 Thread Acetabulum Cover Hole [id number] - [id number] Implanted:Qty: 1 on 03/18/2024 by Taz Randhawa MD at [facility] Right: Hip [employer]Or tho [id number] 10/05/2033 [id number] / / [id number] [employer]/ Ortho R3 58mm 36mm Hip 20d Liner Acetabular Xlpe [id number] - [id number] Implanted:Qty: 1 on 03/18/2024 by Taz Randhawa MD at [facility] Right: Hip [employer]Or tho [id number] 07/16/2033 [id number] / / [id number] [employer]/ Ortho R3 58mm 3 Hole Standard Shell Acetabular Poly [id number] - [id number] Implanted:Qty: 1 on 03/18/2024 by Taz Randhawa MD at [facility] Right: Hip [employer]Or tho [id number] 12/04/2033 [id number] / / [id number] Insurance [facility] Advance Directives For more information, please contact: [phone] * Full Code (Latest Code Status on File) Date Activated Date Inactivated Comments 03/18/2024 2:19 PM 03/19/2024 6:52 PM * Full Code Date Activated Date Inactivated Comments 09/19/2022 4:57 PM 09/20/2022 6:11 PM Care Teams Patient Access Manager Relationship Specialty Start Date End Date Imtiaz Bundy MD [address] [address] PCP - General Emergency Medicine 02/18/24 Victor Manuel Preston MD [address] [address] Referring Physician Cardiology 08/06/22 Augustus Brooke MD [address] [facility] [address] [place] [address] Consulting Physician Emergency Medicine 02/18/24 Taz Randhawa MD [address] [place] [address] Consulting Physician Orthopedic Surgery 03/19/24
--- OUTSIDE RECORDS SUMMARY | 2025-01-05 09:12 | XMS_ITS | Referral Summary ---
Author Organization [facility] Address [address] [place] [address] Care Team Providers Care Supply Planner Name Role Phone Victor Manuel Preston MD Unavailable [phone] Imtiaz Bundy MD Primary Care Provider [phone] Augustus Brooke MD Unavailable Taz Randhawa MD Unavailable [phone] Allergies No known active allergies Medications triamterene-hyd [...] results. Assessment & Plan (01/21/2023 11:13 AM CATERING SALES MANAGER): Patient is clinically euthyroid TSH was high [...] PCP Assessment & Plan (01/21/2023 11:20 AM CATERING SALES MANAGER): Chronic , controlled - continue same medication per PCP Assessment & Plan (08/15/2022 10:29 AM CDT): Chronic , controlled - continue same medication per PCP Osteonecrosis of left hip 08/01/2022 Overview (08/01/2022): Added automatically from request for surgery [id number] Complex sleep apnea syndrome 08/25/2018 Overview (04/02/2024): [...] therapy. UARS (upper airway resistance syndrome) 08/25/20 History of spontaneous subar achnoid intracranial hemorrhage due to cerebral aneurysm 05/12/2018 Hyperlipidemia 05/12/2018 Nocturia 05/12/2018 Sleep related gastroesophageal reflux disease Intracranial aneurysm 10/22/2016 Acquired atrophy of thyroid 06/28/2016 Idiopathic chronic gout of left knee 06/28/2016 Social History Tobacco Use Types Packs/Day Years Used Date Smoking Tobacco: Never Tobacco Cessation:Counseling Given: Not Answered Alcohol Use Standard Drinks/Week Comments Yes 0 (1 standard drink = 0.6 oz pur e alcohol) [facility] Utilities Answer Date Recorded In the past 12 months has [employer], gas, oil, or water [employer] threatened to shut off services in your [...] often do you attend chur ch or hinduism services? Never 03/18/2024 Do you belong to any clubs o r organizations such as jewish groups, unions, fraternal or athletic groups, or [...] place to sleep or slept in a [place] health care facility (including now)? No 03/18/2024 Personal Safety Answer Date Recorded Have you ever been in or are you currently in a harmful physical or emotional relationship or is someone making you feel afraid or unsafe? Denies 03/18/2024 Sex and Gender Information Value Date Recorded Sex Assigned at Not on file Legal Sex Male 4:08 PM CATERING SALES MANAGER Gender Identity Not on file Sexual Orientation Not on file Occupation Industry Job Start Date Job End Date unemployed Not on file Not on file Not on file Last Filed Vital Signs [...] 04/16/2024 9:57 AM CDT Plan of Treatment Not on file Medical Devices Implanted Type Area Ground Service Equipment Mechanic Device Identifier Shelf Expiration Date Model / Serial / Lot [employer]/ Ortho Reflection R3 Thread Acetabulum Cover Hole [id number] - [id number] Implanted:Qty: 1 on 09/19/2022 by Taz Randhawa MD at [facility] Left: Hip [employer]/Or tho 08/16/2032 [id number] / / [id number] [employer]/ Ortho R3 58mm 36mm Hip 20d Liner Acetabular Xlpe [id number] - [id number] Implanted:Qty: 1 on 09/19/2022 by Taz Randhawa MD at [facility] Left: Hip [employer]Or tho [id number] 07/10/2031 [id number] / / [id number] [employer]/ Ortho R3 58mm 3 Hole Standard Shell Acetabular Poly [id number] - [id number] Implanted:Qty: 1 on 09/19/2022 by Taz Randhawa MD at [facility] Left: Hip [employer]/Or tho [id number] 04/19/2032 [id number] / / [id number] [employer]/ Ortho Reflection 6.5mm 25mm Hip Acetabular Cancellous [place] Full [id number] - [id number] Implanted:Qty: 1 on 09/19/2022 by Taz Randhawa MD at [facility] Left: Hip [employer]Or tho [id number] 06/22/2030 [id number] / / [id number] [employer]/ Ortho Synergy 14mm 160mm Standard Offset Hip Stem Femoral Porous [id number] - [id number] Implanted:Qty: 1 on 09/19/2022 by Taz Randhawa MD at [facility] Left: Hip [employer]Or tho [id number] 05/20/2032 [id number] / / [id number] [employer]/ Ortho 36mm Hip +8mm 12/14 Head Femoral Oxinium [id number] - [id number] Implanted:Qty: 1 on 09/19/2022 by Taz Randhawa MD at [facility] Left: Hip [employer]Or tho [id number] 05/24/2032 [id number] / / [id number] [employer]/ Ortho Reflection R3 Contour 6.5mm 25mm Spherical Head Hip Acetabular [id number] - [id number] Implanted:Qty: 1 on 03/18/2024 by Taz Randhawa MD at [facility] Right: Hip [employer]Or tho [id number] 09/20/2033 [id number] / / [id number] [employer]/ Ortho Synergy 14mm 160mm Standard Offset Hip Stem Femoral Porous [id number] - [id number] Implanted:Qty: 1 on 03/18/2024 by Taz Randhawa MD at [facility] Right: Hip [employer]Or tho [id number] 12/05/2033 [id number] / / [id number] [employer]/ Ortho 36mm Hip +8mm 12/14 Head Femoral Oxinium [id number] - [id number] Implanted:Qty: 1 on 03/18/2024 by Taz Randhawa MD at [facility] Right: Hip [employer]/Or tho [id number] 12/29/2033 [id number] / / [id number] [employer]/ Ortho Reflection R3 Thread Acetabulum Cover Hole [id number] - [id number] Implanted:Qty: 1 on 03/18/2024 by Taz Randhawa MD at [facility] Right: Hip [employer]Or tho [id number] 10/05/2033 [id number] / / [id number] [employer]/ Ortho R3 58mm 36mm Hip 20d Liner Acetabular Xlpe [id number] - [id number] Implanted:Qty: 1 on 03/18/2024 by Taz Randhawa MD at [facility] Right: Hip [employer]/Or tho [id number] 07/16/2033 [id number] / / [id number] [employer]/ Ortho R3 58mm 3 Hole Standard Shell Acetabular Poly [id number] - [id number] Implanted:Qty: 1 on 03/18/2024 by Taz Randhawa MD at [facility] Right: Hip [employer]Or tho [id number] 12/04/2033 [id number] / / [id number] Insurance [facility] Advance Directives For more information, please contact: [phone] * Full Code (Latest Code Status on File) Date Activated Date Inactivated Comments 03/18/2024 2:19 PM 03/19/2024 6:52 PM * Full Code Date Activated Date Inactivated Comments 09/19/2022 4:57 PM 09/20/2022 6:11 PM Care Teams Supply Planner Relationship Specialty Start Date End Date Imtiaz Bundy MD [address] [place] [address] 3 [place] [address] PCP - General Emergency Medicine 02/18/24 Victor Manuel Preston MD [address] [address] Referring Physician Cardiology 08/06/22 Augustus Brooke MD [address] [address] Consulting Physician Emergency Medicine 02/18/24 Taz Randhawa MD [address] [address] Consulting Physician Orthopedic Surgery 03/19/24
--- OUTSIDE RECORDS SUMMARY | 2025-01-05 09:12 | XMS_ITS | Referral Summary ---
Author Organization [facility] Address [address] [place] [address] Care Team Providers Care Senior Planning Analyst Name Role Phone Imtiaz Bundy MD Primary Care Provider [phone] Source Comments [facility],non-owned Affiliates and Associated Physician Practices is amultiple site organization consisting of ambulatory clinics and hospital sitesin [place], [place], [place] and [place]. This disclosure is being madepursuant to the Care Everywhere program and may not contain all information available regarding this patient. Last updated 18.[facility] Allergies No known active allergies Medications * Be aware that medications may not be up to date on this document. Alwaysverify current medications with the patient. Medication Sig Dispensed Refills Start Date End Date Status verapamil CR (ISOPTIN-SR) 240 MG tablet Take 480 mg by mouth every 12 hours 12 02/01/2018 Active triamterene-hydroCHLO ROthiazide (MAXZIDE-25) 37.5-25 MG tablet Take 1 tablet by mouth once daily 0 02/17/2018 Active lisinopril (PRINIVIL; ZESTRIL) 40 MG tablet Take 40 mg by mouth once daily 1 02/01/2018 Active hydrALAZINE (APRESOLINE) 25 MG tablet Take 1 tablet by mouth 3 times daily 11 01/24/2018 Active fenofibrate (LOFIBRA) 160 MG tablet Take 160 mg by mouth at bedtime 2 02/16/2018 Active doxazosin (CARDURA) 4 MG tablet Take 4 mg by mouth at bedtime 1 02/17/2018 Active allopurinol (ZYLOPRIM) 100 MG tablet Take 100 mg by mouth once daily 2 02/18/2018 Active omeprazole (PRILOSEC) 40 MG capsuleIndications:Hy pothyroidism (acquired) Take 40 mg by mouth as needed Active levothyroxine (SYNTHROID) 150 MCG tabletIndications:Hyp othyroidism (acquired) Take 1 tablet by mouth once daily 90 tablet 3 06/15/2020 Active Active Problems Problem Noted Date Diagnosed Date Complex sleep apnea syndrome 08/25/2018 Overview (08/25/2018): Evidence of Complex sleep apnea (G47.33) with [...] Mass Index 29.47 06/15/2020 2:37 PM CDT Plan of Treatment Not on file Procedures Procedure Name Priority Date/Time Associated Diagnosis Comments BASIC METABOLIC PANEL (CALCIUM TOTAL) Routine 01/27/2018 10:58 AM DAIRY EQUIPMENT REPAIRER from Last 3 Months or Most Recently Relevant to Health Maintenance Results * (ABNORMAL) BASIC METABOLIC PANEL (CALCIUM TOTAL) (01/27/2018 10:58 AM DAIRY EQUIPMENT REPAIRER) Glucose 93 65 - 99 mg/dL [facility] Comment: ? Fasting reference interval BUN 28(H) [...] Calcium 10.0 8.6 - 10.3 mg/dL [facility]) Comment: Test Performed at: [facility] ??[phone] JAGJIT WHITTINGTON DO,MPH Blood specimen (specimen) BLOOD SPECIMEN / Unknown 01/27/2018 10:58 AM DAIRY EQUIPMENT REPAIRER 01/27/2018 11:01 AM DAIRY EQUIPMENT REPAIRER Leonardo Barkley MD LAB - CHEMISTRY HARSHIL BANKS [facility] [address] from Last 3 Months or Most Recently Relevant to Health Maintenance Care Teams Senior Planning Analyst Relationship Specialty Start Date End Date Imtiaz Budny MD [address] [place] [address] 3 [place] [address] PCP - General 04/07/18
--- OUTSIDE RECORDS SUMMARY | 2025-01-05 09:13 | XMS_ITS | Encounter Summary ---
Author Organization [facility] Address [address] [place] [address] Care Team Providers Care Journalists And Other Writers Name Role Phone Imtiaz Bundy MD Primary Care Provider [phone] Encounter Details Date Type Department Care Team (Late st Contact Info) Description 07/14/2019 Telephone [facility] [address] [place] [address] Donald Kemp MD [address] [place] [address] Social History Tobacco Use Types Packs/Day Years Used Date Smoking Tobacco: Never Smokeless Tobacco: Never Alcohol Use Standard Drinks/Week Comments No 0 (1 standard drink = 0.6 oz pur e alcohol) Sex and Gender Information Value Date Recorded Sex Assigned at Not on file Gender Identity Not on file Sexual Orientation Not on file documented as of this encounter Miscellaneous Notes * Telephone Encounter - Jake Castaneda - 07/14/2019 3:48 PM CDT Pt states BP has been running high 142/72 but before you changed the medication it was running 120/high 60's. Pt's PCP was concerned and wanted pt to let you know and check to see if you wanted to make any adjustments to his medications or change him back to what he was taking before, [id number] mcg. Pt is now taking 175 mcg. documented in this encounter Plan of Treatment Not on file documented as of this encounter Visit Diagnoses Not on filedocumented in this encounter Care Teams Journalists And Other Writers Relationship Specialty Start Date End Date Imtiaz Bundy MD [address] [place] [address] PCP - General 04/07/18 documented as of this encounter
--- OUTSIDE RECORDS SUMMARY | 2025-01-05 09:13 | XMS_ITS | Clinical Summary ---
Author Organization [facility] Address [address] [place] [address] Care Team Providers Care Stock Broker Supervisor Name Role Phone Imtiaz Bundy MD Primary Care Provider [phone] Victor Manuel Preston MD Unavailable [phone] Allergies No known active allergies Medications Cholecalcifer ol (VITAMIN D3) 50 MCG (1999) Tab Take 0.5 tablets (25 mcg total) by mouth daily. Active omeprazole 20 MG capsule Take 1 capsule (20 mg total) by mouth daily as needed. Active hydrALAZINE (APRESOLINE) 25 MG tablet TAKE 1 TABLET BY MOUTH THREE TIMES A DAY 270 tablet 3 09/20/20 22 Active Additional Information Patient taking differently: 25 mg Oral Daily, Reported on 12/15/2024 levothyroxine (SYNTHROID) 175 MCG tablet Take 1 tablet (175 mcg total) by mouth daily. 10/06/20 23 Active lisinopril (PRINIVIL) 30 MG tablet Take 1 tablet (30 mg total) by mouth daily. 10/05/20 23 Active doxazosin (CARDURA) 4 MG tablet TAKE 1 TABLET BY MOUTH EVERY DAY 90 tablet 10/21/20 24 Active fenofibrate 160 MG tablet TAKE 1 TABLET BY MOUTH EVERY DAY 90 tablet 12/07/19 25 Active triamterene-h ydroCHLOROthi azide (MAXZIDE-25) 37.5-25 MG tablet TAKE 1 TABLET BY MOUTH EVERY DAY 90 tablet 12/13/19 25 Active verapamil (CALAN SR) 120 MG ER tablet Take 1 tablet (120 mg total) by mouth daily. New dose 90 tablet 1 12/17/19 25 Active fenofibrate 160 MG tablet TAKE 1 TABLET BY MOUTH EVERY DAY 90 tablet 3 11/20/ 025 Discontinued triamterene-h ydroCHLOROthi azide (MAXZIDE-25) 37.5-25 MG tablet take 1 tablet by mouth every day 90 tablet 2 03/22/20 24 025 Discontinued verapamil (CALAN SR) 120 MG ER tablet take 1 tablet by mouth 2 times daily. 180 tablet 09/20/20 24 025 Discontinued verapamil (CALAN SR) 120 MG ER tablet TAKE 1 TABLET BY MOUTH 2 TIMES DAILY. 180 tablet 1 12/17/19 25 025 Discontinued(Re order) Active Problems Problem Noted Date Diagnosed Date Chronic kidney disease, stage 2 (mild) Vitamin D deficiency 04/22/2023 Status post total replacement of left hip 2021 Primary hypertension 08/15/2022 Primary hypothyroidism 08/15/2022 Avascular necrosis of bone of hip ([facility]/H CC) 08/01/2022 Overview (12/15/2024): Added automatically from request for surgery [id number] Complex sleep apnea syndrome 08/25/2018 Overview (09/03/2022): Evidence of Complex sleep apnea (G47.33) with a RDI of 73.6 events per hour associated with lowest oxygen 11 June 2018 101 kg, home testing and emergence of central events on therapy. Complex sleep apnea syndrome 08/25/2018 Overview (12/15/2024): Evidence of Complex sleep apnea (G47.33) with [...] and emergence of central events on therapy. Hypothyroidism (acquired) 05/12/2018 History of spontaneous subar achnoid intracranial hemorrhage due to cerebral aneurysm 05/12/2018 Intracranial aneurysm ([facility]) 10/22/2016 Acquired atrophy of thyroid 06/28/2016 Essential hypertension Pure hyperglyceridemia Hyperlipidemia Encounters Date Type Department Care Team Description 12/17/2024 Telephone [facility], [facility] [address] [place] [address] Valerie Newell CMA Medication Information (Verapamil sr) 12/15/2024 10:45 AM COMBAT ENGINEER Office Visit [facility], [facility] [address] [place] [address] Fabiola Cummings, DAVID Follow Up; Lipids 12/15/2024 Travel 10/27/2024 Telephone [facility], [facility] [address] [place] [address] Fabiola Cummings, DAVID Results 10/25/2024 Abstract [facility], [facility] [address] [place] [address] Erin Acevedo CMA from Last 3 Months Family History Medical History Relation Comments CHF Maternal Grandmother Relation Status Comments Maternal Grandfather Maternal Grandmother (Age 95) Mother Paternal Grandfather Alive Paternal Grandmother Social History Tobacco Use Types Packs/Day Years Used Date Smoking Tobacco: Never Smokeless Tobacco: Never Tobacco Cessation:Counseling Given: Not Answered Alcohol Use Standard Drinks/Week Comments Yes 12 (1 standard drink = 0.6 oz pu re alcohol) AUDIT-C Answer Date Recorded Frequency of Alcohol Consumption 2-3 times a wee k 03/24/2019 Average Number of Drinks 7 to 9 019 Frequency of Binge Drinking Weekly 03/02 Comments Unknown Sex and Gender Information Value Date Recorded Sex Assigned at Unknown 12/15/2024 10:46 AM COMBAT ENGINEER Legal Sex Male 10:26 PM CDT Gender Identity Not on file Sexual Orientation Not on file Occupation Industry Job Start Date Job End Date Not on file Not on file Not on file Not on file Last Filed Vital Signs Vital Sign Reading Time Taken Comments Blood Pressure 134/60 12/15/2024 11:05 AM COMBAT ENGINEER Pulse 67 12/15/2024 11:05 AM COMBAT ENGINEER Temperature - - Respiratory Rate - - Oxygen Saturation 96% 12/15/2024 11:05 AM COMBAT ENGINEER Inhaled Oxygen Concentration - - Weight 104.8 kg (231 lb) 12/15/2024 11:05 AM COMBAT ENGINEER Height 180.3 cm (5' 11 ) 12/15/2024 11:05 AM COMBAT ENGINEER Body Mass Index 32.22 12/15/2024 11:05 AM COMBAT ENGINEER Plan of Treatment Upcoming Encounters Date Type Department Care Team (Late st Contact Info) Description 12/21/2025 10:00 AM COMBAT ENGINEER Office Visit [facility], [address] [address] Victor Manuel Preston MD Three [facility]. [address] [id number] Health Maintenance Due Date Last Done Comments Colorectal Cancer Screening Colonoscopy (10 Years) 1971 Annual Physical 1974 Hepatitis C 1989 DTaP, Tdap and Td Vaccines ( 1 - Tdap) 1990 Hepatitis B Vaccines (1 of 3 - 19+ 3-dose series) 1990 Zoster Vaccines (1 of 2) 2021 COVID-19 Vaccine (2023-2 5 season) 2024 05/09/2021, 04/06/2021 Influenza Adult (#1) 2024 Meningococcal B Vaccine Aged Out No l onger eligible based on patient's age to complete this topic Meningococcal Vaccine Aged Out No danny sam eligible based on patient's age to complete this topic Pneumococcal Vaccine: Pediatrics (0 to 5 Years) and At-Risk Patients (6 to 64 Years) Aged Out No longer eligible b ased on patient's age to complete this topic RSV Immunizations Under 20 Months Aged Out No longer eligible b ased on patient's age to complete this topic Procedures Procedure Name Priority Date/Time Associated Diagnosis Comments BASIC METABOLIC PANEL Routine 10/13/2024 LIPID PANEL Routine 10/13/2024 CBC (OUTSIDE LAB) Routine 10/13/2024 TSH (OUTSIDE LAB) Routine 10/13/2024 THYROXINE, FREE (FT4) Routine 10/13/2024 PTH - INTACT Routine 10/13/2024 from Last 3 Months Results * (ABNORMAL) TSH (OUTSIDE LAB) (10/13/2024) Pathologist [facility] TSH 0.398(A) 0.465 - 4.680 10/13/2024 us Default History Genericprovider LAB-OUTSIDE/ABST RACTED Final Result * CBC (OUTSIDE LAB) (10/13/2024) Pathologist [facility] WBC 6.9 4.5 - 10.0 HGB 15.0 14.0 - 18.0 HCT 45.4 42.0 - 52.0 PLT 296 150 - 375 RBC 4.88 4.6 - 6.20 10/13/2024 us Default History Genericprovider LAB-OUTSIDE/ABST RACTED Final Result * PTH - INTACT (10/13/2024) Pathologist [facility] PTH <14.5 14.5 - 75.2 10/13/2024 us Default History Genericprovider LABORATORY Final Result * BASIC METABOLIC PANEL (10/13/2024) Pathologist [facility] SODIUM S/P/B 137 137 - 145 POTASSIUM S/P/B 4.0 3.4 - 5.0 CO2 28 22 - 30 CHLORIDE S/P/B 99 98 - 107 GLUCOSE 92 55 - 110 mg/dL CALCIUM S/P/B 10.1 8.4 - 10.2 BUN 20 9 - 20 CREATININE S/P/B 0.80 0.7 - 1.3 GFR ESTIMATE >60 >60 10/13/2024 us Default History Genericprovider LABORATORY Final Result * (ABNORMAL) LIPID PANEL (10/13/2024) CHOLESTEROL 176 0 - 200 HDL 57 >35 TRIGLYCERIDES 151(A) 0 - 150 LDL (CALCULATED) 81 0 - 100 10/13/2024 us Default History Genericprovider LABORATORY Final Result * THYROXINE, FREE (FT4) (10/13/2024) FREE T4 1.45 0.78 - 2.19 10/13/2024 us Default History Genericprovider LABORATORY Final Result from Last 3 Months Insurance Care Teams Stock Broker Supervisor Relationship Specialty Start Date End Date Imtiaz Bundy MD [address] [address] [place] [address] PCP - General FAMILY PRACTICE 05/01/16 Victor Manuel Preston MD NPI: [id number] [place] [address]. [facility] [address] [place] [address] [place] Revenue Settlements Administrator CARDIOVASCULAR DISEASE 05/01/16
--- OUTSIDE RECORDS SUMMARY | 2025-01-05 09:13 | XMS_ITS | Clinical Summary ---
Author Organization [facility] Address [address] [place] [address] Care Team Providers Care Glove Parts Inspector Name Role Phone Imtiaz Bundy MD Primary Care Provider [phone] Source Comments [facility],non-owned Affiliates and Associated Physician Practices is amultiple site organization consisting of ambulatory clinics and hospital sitesin [place], [place], [place] and [place]. This disclosure is being madepursuant to the Care Everywhere program and may not contain all information available regarding this patient. Last updated 18.[facility] Allergies No known active allergies Medications * [...] acquir ed atrophy of thyroid 06/28/2016 08/20/2019 Family History Medical History Relation Name Comments Diabetes - Type 2 Brother type not c lear. Thyroid Disease Neg Hx Relation Name Status Comments Brother Social History Tobacco Use Types Packs/Day Years [...] 06/15/2020 2:37 PM CDT Plan of Treatment Health Maintenance Due Date Last Done Comments COLOGUARD (AGES 45-75) - COL ON CA SCREENING 1971 COLON MONITORING 1971 COLONOSCOPY - COLON CA SCREENING 1971 CT COLONOGRAPHY - COLON CA SCREENING 1971 Colorectal Cancer Screening 1971 FIT - COLON CA SCREENING 1971 FLEX SIG - COLON CA SCREENING 1971 LIPID TESTING 1971 HIV SCREENING 1986 HEPATITIS C SCREENING 11/08/1989 DTAP/TDAP/TD VACCINES (1 - Tdap) 1990 HEPATITIS B VACCINE (1 of 3 - 19+ 3-dose series) 1990 SCREENING FOR DIABETES 01/27/2021 8, 09/03/2017 PNEUMOCOCCAL VACCINE 50+ (1 of 1 - PCV) 2021 ZOSTER VACCINE (1 of 2) 2021 COVID-19 VACCINE (1 - 2023-2 5 season) 2024 INFLUENZA VACCINE (#1) 2024 DEPRESSION SCREENING 12/01/2024 HIB VACCINE Aged Out No longer eligi ble based on patient's age to complete this topic HPV VACCINE Aged Out No longer eligi ble based on patient's age to complete this topic MENINGOCOCCAL (Group B) VACCINE Aged Out No longer eligible b ased on patient's age to complete this topic MENINGOCOCCAL VACCINE Aged Out No danny sam eligible based on patient's age to complete this topic PNEUMOCOCCAL VACCINE Aged Out No long er eligible based on patient's age to complete this topic Procedures Procedure Name Priority Date/Time Associated Diagnosis Comments BASIC METABOLIC PANEL (CALCIUM TOTAL) Routine 01/27/2018 10:58 AM GENOMICS SCIENTIST from Last 3 Months or Most Recently Relevant to Health Maintenance Results * (ABNORMAL) BASIC METABOLIC PANEL (CALCIUM TOTAL) (01/27/2018 10:58 AM GENOMICS SCIENTIST) Pathologist [facility] Glucose 93 65 - 99 mg/dL [facility] ([facility]) Comment: ? Fasting reference interval BUN 28(H) [...] mg/dL [facility] Comment: Test Performed at: [facility] [address] [place], [place] ??[address] JAGJIT WHITTINGTON DO,MPH Blood specimen (specimen) BLOOD SPECIMEN / Unknown 01/27/2018 10:58 AM GENOMICS SCIENTIST 01/27/2018 11:01 AM GENOMICS SCIENTIST Leonardo Barkley MD [facility] Organization Address City/State/ZIP Co de Phone Number [facility] [address] from Last 3 Months or Most Recently Relevant to Health Maintenance Care Teams Glove Parts Inspector Relationship Specialty Start Date End Date Imtiaz Bundy MD [address] [address] PCP - General 04/07/18
--- OUTSIDE RECORDS SUMMARY | 2025-01-05 09:13 | XMS_ITS | Clinical Summary ---
Author Organization [facility] valdes Address [address] [place] [address] Phone Care Team Providers Care Wool Merchant Name Role Phone Imtiaz Bundy MD Primary Care Provider [phone] Allergies No known active allergies Medications Medication Sig Dispensed Refills Start Date End Date Status triamterene-hydroCHLOR Othiazide (MAXZIDE-25) 37.5-25 MG per tablet Take 1 tablet by mouth daily 02/17/2018 Active doxazosin (CARDURA) 4 MG tablet Take 4 mg by mouth daily 02/17/2018 Active hydrALAZINE (APRESOLINE) 25 MG tablet Take 25 mg by mouth 1 (one) time each day 10/16/2020 Active lisinopril (PRINIVIL) 40 MG tablet Take 40 mg by mouth daily 02/01/2018 Active cholecalciferol (VITAMIN D-3 SUPER STRENGTH) 50 MCG (1999 UT) tablet Take 25 mcg by mouth daily Active fenofibrate (TRIGLIDE) 160 MG tablet Take 1 tablet by mouth 1 (one) time each day 02/16/2018 Active omeprazole (PriLOSEC) [address] capsule Take 20 mg by mouth daily Active verapamil ER (VERELAN) 120 MG 24 hr capsule Take 120 mg by mouth every night Active levothyroxine (SYNTHROID) 175 MCG tablet Take 175 mcg by mouth 1 (one) time each day Active Active Problems Problem Noted Date Diagnosed Date Vitamin D deficiency 04/22/2023 Essential hypertension Chronic kidney disease, stage 2 (mild) Family History Medical History Relation Comments Cancer Mother Relation Status Comments Mother Social History Tobacco Use Types Packs/Day Years Used Date Smoking Tobacco: Never Smokeless Tobacco: Never Tobacco Cessation:Counseling Given: Not Answered Sex and Gender Information Value Date Recorded Sex Assigned at Not on file Gender Identity Not on file Sexual Orientation Not on file Last Filed Vital Signs Vital Sign Reading Time Taken Comments Blood Pressure 122/70 05/18/2024 3:11 PM CDT Pulse 61 05/18/2024 3:11 PM CDT Temperature - - Respiratory Rate - - Oxygen Saturation - - Inhaled Oxygen Concentration - - Weight 102 kg (225 lb) 05/18/2024 3:11 PM CDT Height 180.3 cm (5' 11 ) 05/18/2024 3:11 PM CDT Body Mass Index 31.38 05/18/2024 3:11 PM CDT Plan of Treatment Health Maintenance Due Date Last Done Comments Pneumococcal PPSV23 Highest Risk Adult (1 of 3 - PCV13 ) 1990 Influenza Vaccine (#1) 2024 Care Teams Wool Merchant Relationship Specialty Start Date End Date Imtiaz Bundy MD PCP - General Family Medicine 08/21/22
[2025-01-05 14:23] LABS: Add Urine Microscopic? NO; Appearance Urine Clear (Clear); Bilirubin Urine Negative (Negative); Blood Urine Negative (Negative); Color Urine Yellow (Yellow); Glucose Urine UA Negative (Negative); Ketones Urine Negative (Negative); Leukocyte Esterase Ur Negative LEU/UL (Negative); Nitrate Urine Negative (Negative); Protein Urine Negative (Negative); Specific Grav Ur 1.018 (1.001-1.035); Urobilinogen Urine 0.2 mg/dL (<2.0)
[2025-01-05 16:30] LABS: Free T4 Free Thyroxine 1.42 ng/dL (0.78-2.19)
[2025-01-05 17:01] LABS: Thyroid Stimulating Hormone 0.617 uIU/mL (0.465-4.680)
== END 2025-01-05 08:55 | disposition home or self-care (01) ==
PROVIDERS: PCP Emergency Medicine; Visit Provider Emergency Medicine
DX: Z00.00 Encounter for general adult medical examination without abnormal findings (principal); E03.4 Atrophy of thyroid (acquired)
CPT/HCPCS: 36415; 81003; 84439; 84443

== ENCOUNTER 2025-04-29 12:45 | Outpatient (CLI) | payer OTHER, SELFPAY ==
--- OUTSIDE RECORDS SUMMARY | 2025-04-29 12:51 | XMS_ITS | Data Portability ---
Author Organization [place] [facility] [employer], Main Office Address [address] [place] [address] Care Team Providers Care Fleet Sales Associate Name Role Phone GIL ROBERTS Primary Care Provider [phone] Assessment No assessment recorded. Plan of Treatment Reminders Order Date Submit Date Provider Last Modified By Organization Details Last Modified Time Details Appointments Marsha cloud Patient 15 2024 01:00P M Gisselle Isidro MD Not available Not available Not available Lab gamma-gl utamyl transfer ase (ggt), serum [address] [place] [address] (Lab), [address] [place], [address], 04/27/2025 08:01:37 actin IgG Ab, QN, serum or plasma [address] [place] [address] (Lab), [address] [place], [address], 04/27/2025 08:01:37 alpha-1- antitryp sin (aat), QN, serum [address] [place] [address] (Lab), [address] [place], [address], 04/27/2025 08:01:38 unlisted lab - mitochon drial antibody titer [address] (Lab), [address] [place], [address], 04/27/2025 08:01:38 cerulopl asmin, serum 2024 025 [email or web address] [facility] [address] [place], [address], 04/27/2025 08:01:38 Referral None recorded . Procedures None recorded . Surgeries None recorded . Imaging None recorded . Medication Orders None recorded . Patient TargetsNo targets recorded. Patient Instructions Encounter Date Encounter Id Patient Instructions Last Modified By Organization Details Last Modified Time 04/20/2025 [id number] LOW VFAT DIET , EXERCISE 300 MIN OR 175 MIN PER WEEK. [email or web address] Not available 04/20/2025 14:39:42 PT WITH FATTY LIVER . CHECK LIVER MARKERS . F/U IN 6 MTHS . WILL CALL WITH RESULTS . [email or web address] Not available 04/20/2025 14:40:19 Reason for Referral None Reported. Problems Name Problem SNOMED Code Status Onset Date Resolution Date Notes Provider Name and Address Organization Details Recorded Time Steatotic liver disease Active 025 Gisselle Isidro MD [address] [facility], [facility] [address], [place], [address] , Sold 14:34:53 Problem Notes None recorded. Procedures Surgical History Date Name Laterality Status Provider Name and Address Organization Details Recorded Time Brain aneurysm repr simple completed Rodger Aquino [facility] [employer] 11/15/2024 10:51:38 Hip surgery completed Rodger Aquino [facility] [employer] 11/15/2024 10:51:45 Imaging Results None recorded. Procedure Notes None recorded. Medical Equipment None Reported. Allergies No known drug allergies Medications Name Sig Start Date Stop Date Status Note LastModified by Organization Details LastModified Time verapamil ER (SR) 120 mg tablet,exte nded release TAKE 1 TABLET (120 MG TOTAL) BY MOUTH DAILY. NEW DOSE active Not Available Not Available No t Available cyclobenzap rine 10 mg tablet TAKE 1 TABLET BY MOUTH 3 TIMES A DAY NEEDED 11/15 completed Not Available Not Available Not Available levothyroxi ne 175 mcg tablet TAKE 1 TABLET BY MOUTH EVERY DAY active Not Available Not Available No t Available clonidine HCl 0.1 mg tablet Take 1 tablet twice a day by oral route. active Not Available Not Available No t Available doxycycline hyclate 100 mg capsule TAKE 1 CAPSULE BY MOUTH EVERY 12 HOURS FOR 5 DAYS 11/15 completed Not Available Not Available Not Available hydrocodone 5 mg-acetamin ophen 325 mg tablet TAKE 1 TO 2 TABLETS BY MOUTH EVERY 4 TO 6 HOURS NEEDED 11/15 completed Not Available Not Available Not Available clonidine HCl 0.3 mg tablet TAKE 1 TABLET BY MOUTH TWICE DAILY 11/15 completed Not Available Not Available Not Available prednisone 5 mg tablet TAKE 12 TABLETS BY MOUTH TODAY THEN DECREASE BY 1 TABLET DAILY UNTIL GONE 11/15 completed Not Available Not Available Not Available allopurinol 100 mg tablet Take 1 tablet every day by oral route. active Not Available Not Available No t Available triamterene 37.5 mg-hydrochl orothiazide 25 mg capsule TAKE 1 CAPSULE BY MOUTH EVERY DAY active Not Available Not Available No t Available oxycodone-a cetaminophe n 5 mg-325 mg tablet TAKE 1 TABLET BY MOUTH EVERY 4 HOURS NEEDED FOR PAIN 11/15 completed Not Available Not Available Not Available indomethaci n 50 mg capsule TAKE ONE CAPSULE BY MOUTH 3 TIMES A DAY FOR 7 DAYS. DO NOT TAKE WITH ANY OTHER NSAIDS 11/15 completed Not Available Not Available Not Available lisinopril 30 mg tablet TAKE 1 TABLET BY MOUTH EVERY DAY active Not Available Not Available No t Available triamterene 37.5 mg-hydrochl orothiazide 25 mg tablet TAKE 1 TABLET BY MOUTH EVERY DAY 04/20 completed Not Available Not Available Not Available doxazosin 4 mg tablet TAKE 1 TABLET BY MOUTH EVERY DAY active Not Available Not Available No t Available diclofenac sodium 75 mg tablet,shanna yed release TAKE 1 TABLET BY MOUTH TWICE A DAY 11/15 completed Not Available Not Available Not Available verapamil ER (SR) 240 mg tablet,exte nded release TAKE 2 TABLETS BY MOUTH EVERY DAY 11/15 completed Not Available Not Available Not Available methylpredn isolone 4 mg tablets in a dose pack TAKE 6 TABLETS ON DAY 1 DIRECTED ON PACKAGE AND DECREASE BY 1 TAB EACH DAY FOR A TOTAL OF 6 DAYS 11/15 completed Not Available Not Available Not Available amoxicillin 500 mg-potassiu m clavulanate 125 mg tablet TAKE 1 TABLET BY MOUTH EVERY 8 HOURS FOR 7 DAYS 11/15 completed Not Available Not Available Not Available cyclobenzap rine 5 mg tablet TAKE 1 TABLET BY MOUTH 3 TIMES A DAY 11/15 completed Not Available Not Available Not Available fenofibrate 160 mg tablet TAKE 1 TABLET BY MOUTH EVERY DAY active Not Available Not Available No t Available Eliquis 2.5 mg tablet TAKE 1 TABLET (2.5 MG TOTAL) BY MOUTH 2 (TWO) TIMES A DAY FOR 42 DOSES active Not Available Not Available No t Available Vitals Date Recorded Body height Body mass index (BMI) Body weight Heart rate Oxygen saturation Oxygen saturation in Arterial blood by Pulse oximetry Systolic blood pressure Diastolic blood pressure Provider Name and Address Organization Details Last Updated DateTime 5 180.34 cm 31.5 kg/m2 654484. 88 g 87 /min 96 % 96 % 156 mm[Hg] 84 mm[Hg] RUSS Butler [place] [facility] 14:07:40 Social History None recorded. Functional Status Question Answer Note LastModified by Organizat ion Details LastModified Time Do you use any illicit or recreational drugs? No Information not available 11/15/2024 What is your level of alcohol consumption? Occasional Information not available 11/15/2024 Mental Status None recorded. Family History Relationship Description Onset Age of this Age Resolved Age Notes LastModified by Organization Details LastModified Time Mother Malignant tumor of pancreas [email or web address] Not available 2023 10:52:49 Father Disorder of prostate [email or web address] Not available 2023 10:53:09 Medical History Condition Response GOUT Y GI PROBLEMS Y GERD/NAUSEA Y ANEURYSM Y HYPERTENSION Y Past Encounters Encounter ID Performer Location Encounter Start Date Encounter Closed Date Diagnosis/Indication Diagnosis SNOMED-CT Code Diagnosis ICD10 Code Diagnosis Note [id number] Gisselle Isidro MD [facility], [place] [address] [place] [address] 04/20/2025 14:02:38 04/20/2025 14:56:53 Steatotic liver disease 987852216 K76.0 Health Concerns Section Related Observation LastModified by Organization Detai ls LastModified Time None Recorded Concern Status LastModified by Organization Details LastModified Time None Recorded Advance Directives Directive None Recorded Payers Encounter Date Sequence Insurance Name Policy Number Policy Hoffman Covered Member ID Hoffman Member ID Guarantor Name 04/20/2025 1 [facility] (MEDICAID HMO) [id number] Collette Mullins [id number] Collette Mullins Notes Date Note Type Note Provider Name and Address Organization Details Recorded Time 04/20/2025 text/html COLLETTE WAS SEEN IN THE OFFICE TODAY FOR EVALUATION . PT HAS FATTY LIVER ON U/S. PT ADMITS TO DRINKING 2-3 BEERS DAILY , CHOLESTEROL ISSUES , MILD OBESITY BMI 31.1. HE DENIES DM-2. / RUQ PAIN /JAUNDICE/ JOINT PAIN . VIRAL HEPATITIS PROFILE WAS NORMAL . Gisselle Isidro MD [address] [place] [address], [place], [address], [facility] 04/20/2025 14:40:43
--- OUTSIDE RECORDS SUMMARY | 2025-04-29 12:52 | XMS_ITS | Clinical Summary ---
Author Organization [facility] Margarita valdes Address [address] [place] [address] Phone Care Team Providers Care Nuclear Fuels Reclamation Engineer Name Role Phone Imtiaz Bundy MD Primary Care Provider [phone] Allergies No known active allergies Medications triamterene-hydr oCHLOROthiazide (MAXZIDE-25) 37.5-25 MG per tablet Take 1 tablet by mouth daily 02/17/2018 Active doxazosin (CARDURA) 4 MG tablet Take 4 mg by mouth daily 02/17/2018 Active hydrALAZINE (APRESOLINE) 25 MG tablet Take 25 mg by mouth 1 (one) time each day 10/16/2020 Active lisinopril (PRINIVIL) 40 MG tablet Take 40 mg by mouth daily 02/01/2018 Active cholecalciferol (VITAMIN D-3 SUPER STRENGTH) 50 MCG (2000 UT) tablet Take 25 mcg by mouth [...] at Not on file Legal Sex Male 9:10 AM MDT Gender Identity Not on file Sexual Orientation Not on file Last Filed Vital Signs Vital Sign Reading Time Taken Comments Blood Pressure 122/70 05/18/2024 3:11 PM CDT Pulse 61 05/18/2024 3:11 PM CDT Temperature - - Respiratory Rate - - Oxygen Saturation - - Inhaled Oxygen Concentration - - Weight 102 kg (225 lb) 05/18/2024 3:11 PM CDT Height 180.3 cm (5' 11) 05/18/2024 3:11 PM CDT Body Mass Index 31.38 05/18/2024 3:11 PM CDT Plan of Treatment Health Maintenance Due Date Last Done Comments Pneumococcal PPSV23 Highest Risk Adult (1 of 3 - PCV13 ) 1990 Influenza Vaccine (Season Ended) 2025 Insurance [employer] MULTIPLAN [employer] MULT[employer]AN Care Teams Nuclear Fuels Reclamation Engineer Relationship Specialty Start Date End Date Imtiaz Bundy MD PCP - General Family Medicine 08/21/22
--- OUTSIDE RECORDS SUMMARY | 2025-04-29 12:52 | XMS_ITS | Encounter Summary ---
Author Organization [facility] Address [address] [facility] [place] [address] Care Team Providers Care Radio Electronics Officer Name Role Phone Imtiaz Bundy MD Primary Care Provider [phone] Encounter Details Date Type Department Care Team (Late st Contact Info) Description 07/14/2019 Telephone [facility] [address] [place] [address] Donald Kemp MD [address] [place] [address] Social History Tobacco Use Types Packs/Day Years Used Date Smoking Tobacco: Never Smokeless Tobacco: Never Alcohol Use Standard Drinks/Week Comments No 0 (1 standard drink = 0.6 oz pur e alcohol) Sex and Gender Information Value Date Recorded Sex Assigned at Not on file Legal Sex Male 6:22 AM CYBER TRANSPORT SYSTEMS SPECIALIST Gender Identity Not on file Sexual Orientation [...] back to what he was taking before, [id number] mcg. Pt is now taking 175 mcg. documented in this encounter Plan of Treatment Not on file documented as of this encounter Visit Diagnoses Not on filedocumented in this encounter Care Teams Radio Electronics Officer Relationship Specialty Start Date End Date Imtiaz Bundy MD [address] [place] [address] PCP - General 04/07/18 documented as of this encounter
--- OUTSIDE RECORDS SUMMARY | 2025-04-29 12:52 | XMS_ITS | Referral Summary ---
Author Organization [facility] Address [address] [place] [address] Care Team Providers Care Catering Barista Name Role Phone Victor Manuel Preston MD Unavailable [phone] Imtiaz Bundy MD Primary Care Provider [phone] Augustus Brooke MD Unavailable Taz Randhawa MD Unavailable [phone] Encounters Date Type Department Care Team Description 03/18/2025 9:51 AM CDT - 03/18/2025 11:59 PM CDT Hospital Encounter [facility] [address] [place] [address] History of total right hip replacement Discharge Disposition: Discharge to home or self care 03/18/2025 10:00 AM CDT Office Visit [facility] [address] [place] [address] [address] [place] [address] Taz Randhawa MD History of total right hip replacement (Primary Dx) from Last 3 Months Allergies No known active allergies Medications triamterene-hyd [...] Date Chronic kidney disease, stage 2 (mild) Pure hyperglyceridemia 04/02/2024 Osteonecrosis 03/18/2024 Osteonecrosis of [...] results. Assessment & Plan (01/21/2023 11:13 AM WHEEL AND PINION INSPECTOR): Patient is clinically euthyroid TSH was high [...] PCP Assessment & Plan (01/21/2023 11:20 AM WHEEL AND PINION INSPECTOR): Chronic , controlled - continue same medication per PCP Assessment & Plan (08/15/2022 10:29 AM CDT): Chronic , controlled - continue same medication per PCP Osteonecrosis of left hip 08/01/2022 Overview (08/01/2022): Added automatically from request for surgery [id number] Complex sleep apnea syndrome 08/25/2018 Overview (04/02/2024): [...] drink = 0.6 oz pur e alcohol) [facility] Utilities Answer Date Recorded In the past 12 months has e [employer], gas, oil, or water [employer] threatened to shut off services in your [...] often do you attend chur ch or islam services? Never 03/18/2024 Do you belong to any clubs o r organizations such as yazidism groups, unions, fraternal or athletic groups, or [...] place to sleep or slept in a alf (including now)? No 03/18/2024 Personal Safety Answer Date Recorded Have you ever been in or are you currently in a harmful physical or emotional relationship or is someone making you feel afraid or unsafe? Denies 03/18/2024 Sex and Gender Information Value Date Recorded Sex Assigned at Not on file Legal Sex Male 4:08 PM WHEEL AND PINION INSPECTOR Gender Identity Not on file Sexual Orientation Not on file Occupation Industry Job Start Date Job End Date unemployed Not on file Not on file Not on file Last Filed Vital Signs Vital Sign Reading Time Taken Comments Blood Pressure 134/84 03/19/2024 12:17 PM CDT Pulse 61 03/19/2024 12:17 PM CDT Temperature 36.4 C (97.5 F) 03/19/2024 12:17 PM CDT Respiratory Rate 17 03/19/2024 12:17 PM CDT Oxygen Saturation 96% 03/19/2024 12:17 PM CDT Inhaled Oxygen Concentration - - Weight 100.7 kg (222 lb) 03/18/2025 10:10 AM CDT Height 180.3 cm (5' 11) 03/18/2025 10:10 AM CDT Body Mass Index 30.96 03/18/2025 10:10 AM CDT Plan of Treatment Not on file Medical Devices Implanted Type Area Stucco Mason Device Identifier Shelf Expiration Date Model / Serial / Lot [employer]/ Ortho Reflection R3 Thread Acetabulum Cover Hole [id number] - [id number] Implanted:Qty: 1 on 09/19/2022 by Taz Randhawa MD at [facility] Left: Hip [employer]/Or tho 08/16/2032 [id number] / / [id number] [employer]/ Ortho R3 58mm 36mm Hip 20d Liner Acetabular Xlpe [id number] - [id number] Implanted:Qty: 1 on 09/19/2022 by Taz Randhawa MD at [facility] Left: Hip [employer]Or tho [id number] 07/10/2031 [id number] / / [id number] [employer]/ Ortho R3 58mm 3 Hole Standard Shell Acetabular Poly [id number] - [id number] Implanted:Qty: 1 on 09/19/2022 by Taz Randhawa MD at [facility] Left: Hip [employer]/Or tho [id number] 04/19/2032 [id number] / / [id number] [employer]/ Ortho Reflection 6.5mm 25mm Hip Acetabular Cancellous [place] Full [id number] - [id number] Implanted:Qty: 1 on 09/19/2022 by Taz Randhawa MD at [facility] Left: Hip [employer]Or tho [id number] 06/22/2030 [id number] / / [id number] [employer]/ Ortho Synergy 14mm 160mm Standard Offset Hip Stem Femoral Porous [id number] - [id number] Implanted:Qty: 1 on 09/19/2022 by Taz Randhawa MD at [facility] Left: Hip [employer]Or tho [id number] 05/20/2032 [id number] / / [id number] [employer]/ Ortho 36mm Hip +8mm 12/14 Head Femoral Oxinium [id number] - [id number] Implanted:Qty: 1 on 09/19/2022 by Taz Randhawa MD at [facility] Left: Hip [employer]Or tho [id number] 05/24/2032 [id number] / / [id number] [employer]/ Ortho Reflection R3 Contour 6.5mm 25mm Spherical Head Hip Acetabular [id number] - [id number] Implanted:Qty: 1 on 03/18/2024 by Taz Randhawa MD at [facility] Right: Hip [employer]/Or tho [id number] 09/20/2033 [id number] / / [id number] [employer]/ Ortho Synergy 14mm 160mm Standard Offset Hip Stem Femoral Porous [id number] - [id number] Implanted:Qty: 1 on 03/18/2024 by Taz Randhawa MD at [facility] Right: Hip [employer]/Or tho [id number] 12/05/2033 [id number] / / [id number] [employer]/ Ortho 36mm Hip +8mm 12/14 Head Femoral Oxinium [id number] - [id number] Implanted:Qty: 1 on 03/18/2024 by Taz Randhawa MD at [facility] Right: Hip [employer]/Or tho [id number] 12/29/2033 [id number] / / [id number] [employer]/ Ortho Reflection R3 Thread Acetabulum Cover Hole [id number] - [id number] Implanted:Qty: 1 on 03/18/2024 by Taz Randhawa MD at [facility] Right: Hip [employer]/Or tho [id number] 10/05/2033 [id number] / / [id number] [employer]/ Ortho R3 58mm 36mm Hip 20d Liner Acetabular Xlpe [id number] - [id number] Implanted:Qty: 1 on 03/18/2024 by Taz Randhawa MD at [facility] Right: Hip [employer]/Or tho [id number] 07/16/2033 [id number] / / [id number] [employer]/ Ortho R3 58mm 3 Hole Standard Shell Acetabular Poly [id number] - [id number] Implanted:Qty: 1 on 03/18/2024 by Taz Randhawa MD at [facility] Right: Hip [employer]/Or tho [id number] 12/04/2033 [id number] / / [id number] Procedures Procedure Name Priority Date/Time Associated Diagnosis Comments XR HIP RIGHT 2 OR 3 VIEWS Schedule Routine, Read Routine (OP Routine) 03/18/2025 9:56 AM CDT History of total right hip replacement from Last 3 Months Results * XR Hip Right 2 or 3 Views (03/18/2025 9:56 AM CDT) Anatomical Region Laterality Modality Lower Extremities, Hip, Pelvis Right C omputed Radiography 03/18/2025 9:56 AM CDT Narrative 03/18/2025 9:57 AM CDT EXAM DESCRIPTION: XR HIP RIGHT 2 OR 3 VIEWS REASON FOR STUDY: 1 year follow-up after hip replacement COMPARISON: Right hip x-ray from 04/16/2024 FINDINGS: Two views of the right hip are reviewed. These images reveal a non cemented right total hip arthroplasty. The implanted components appear well aligned and remain well fixed with no evidence of mechanical loosening or wear. There is no abnormal bone destruction noted. Compared to previous x-rays there is no change. IMPRESSION: Stable appearance of right total hip arthroplasty. THIS IS AN ELECTRONICALLY VERIFIED FINAL REPORT 03/18/2025 9:57 AM - Electronically signed by Taz RDZ T: Report ID: [id number] Reading Location: [place] [address] Procedure Note Taz Randhawa MD - 03/18/2025 EXAM DESCRIPTION: XR HIP RIGHT 2 OR 3 VIEWS REASON FOR STUDY: 1 year follow-up after hip replacement COMPARISON: Right hip x-ray from 04/16/2024 FINDINGS: Two views of the right hip are reviewed. These images reveal a noncemented right total hip arthroplasty. The implanted components appear wellaligned and remain well fixed with no evidence of mechanical loosening or wear.There is no abnormal bone destruction noted. Compared to previous x-rays thereis no change. IMPRESSION: Stable appearance of right total hip arthroplasty. THIS IS AN ELECTRONICALLY VERIFIED FINAL REPORT 03/18/2025 9:57 AM - Electronically signed by Taz RDZ T: Report ID: [id number] Reading Location: [place] [address] Taz Randhawa MD IMG XR PROCEDURES Final Resu lt from Last 3 Months Insurance Advance Directives For more information, please contact: [phone] * Full Code (Latest Code Status on File) Date Activated Date Inactivated Comments 03/18/2024 2:19 PM 03/19/2024 6:52 PM * Full Code Date Activated Date Inactivated Comments 09/19/2022 4:57 PM 09/20/2022 6:11 PM Care Teams Catering Barista Relationship Specialty Start Date End Date Imtiaz Bundy MD [address] [facility] [address] [place] [address] PCP - General Emergency Medicine 02/18/24 Victor Manuel Preston MD [address] [facility] [address] [place] [address] Referring Physician Cardiology 08/06/22 Augustus Brooke MD [address] [facility] [address] [place] [address] Consulting Physician Emergency Medicine 02/18/24 Taz Randhawa MD [address] [address] Consulting Physician Orthopedic Surgery 03/19/24
--- OUTSIDE RECORDS SUMMARY | 2025-04-29 12:52 | XMS_ITS | Clinical Summary ---
Author Organization [facility] [employer] Address [address] [place] [address] Care Team Providers Care Oracle Applications Analyst Name Role Phone Imtiaz Bundy MD Primary Care Provider [phone] Source Comments [facility] [employer],non-owned Affiliates and Associated Physician Practices is amultiple site organization consisting of ambulatory clinics and hospital sitesin [place], [place], [place] and [place]. This disclosure is being madepursuant to the Care Everywhere program and may not contain all information available regarding this patient. Last updated 18.[facility] [employer] Allergies No known active allergies Medications * Be aware that medications may not be up to date on this document. Alwaysverify current medications with the patient. verapamil CR (ISOPTIN-SR) 240 MG tablet Take 480 mg by mouth every 12 hours 12 02/01/2018 Active triamterene-hyd roCHLOROthiazid e (MAXZIDE-25) 37.5-25 MG tablet Take 1 tablet [...] 2 02/18/2018 Active omeprazole (PRILOSEC) 40 MG capsuleIndicati ons:Hypothyroid ism (acquired) Take 40 mg by mouth as needed Active levothyroxine (SYNTHROID) 150 MCG tabletIndicatio ns:Hypothyroidi sm (acquired) Take 1 tablet by mouth once [...] on file Legal Sex Male 6:22 AM MANAGER MEDICAL WRITING Gender Identity Not on file Sexual Orientation Not on file Last Filed Vital Signs Vital Sign Reading Time Taken Comments Blood Pressure 130/68 06/15/2020 2:37 PM CDT Pulse 68 06/15/2020 2:37 PM CDT Temperature 36.6 C (97.9 F) 06/15/2020 2:37 PM CDT Respiratory Rate 18 06/15/2020 2:37 PM CDT Oxygen Saturation 98% 06/15/2020 2:37 PM CDT Inhaled Oxygen Concentration - - Weight 95.8 kg (211 lb 4.8 oz) 06/15/2020 2:37 P M CDT Height 180.3 cm (5' 11) 06/15/2020 2:37 PM CDT Body Mass Index [...] VACCINE (1 - 2023-2 5 season) 2024 DEPRESSION SCREENING 12/01/2024 INFLUENZA VACCINE (Season Ended) 2025 HIB VACCINE Aged Out No longer eligi ble based on patient's age to complete this topic HPV VACCINE Aged Out No longer eligi ble based on patient's age to complete this topic MENINGOCOCCAL (Group B) VACCINE SHARED DECISION-MAKING Aged Out No longer eligible based on patient's age to complete this topic MENINGOCOCCAL GROUPS A/C/Y/W VACCINE Aged Out No longer eligible b ased on patient's age to complete this topic Procedures Procedure Name Priority Date/Time Associated Diagnosis Comments BASIC METABOLIC PANEL (CALCIUM TOTAL) Routine 01/27/2018 10:58 AM MANAGER MEDICAL WRITING from Last 3 Months or Most Recently Relevant to Health Maintenance Results * (ABNORMAL) BASIC METABOLIC PANEL (CALCIUM TOTAL) (01/27/2018 10:58 AM MANAGER MEDICAL WRITING) Glucose 93 65 - 99 mg/dL AB ([facility]) Comment: Fasting reference interval BUN 28(H) 7 - [...] mg/dL [facility] Comment: Test Performed at: [facility] [address] [place] [address] JAGJIT WHITTINGTON DO,MPH Blood specimen (specimen) BLOOD SPECIMEN / Unknown 01/27/2018 10:58 AM MANAGER MEDICAL WRITING 01/27/2018 11:01 AM MANAGER MEDICAL WRITING us Leonardo Barkley MD LAB - CHEMISTRY ORDERABLES Final Result [facility] [id number] from Last 3 Months or Most Recently Relevant to Health Maintenance Insurance [facility] Care Teams Oracle Applications Analyst Relationship Specialty Start Date End Date Imtiaz Bundy MD [address] [place] [id number] PCP - General 04/07/18
--- OUTSIDE RECORDS SUMMARY | 2025-04-29 12:52 | XMS_ITS | Clinical Summary ---
Author Organization [facility] Address [address] [place] [address] Care Team Providers Care Procurement Accountant Name Role Phone Victor Manuel Preston MD Unavailable [phone] Imtiaz Bundy MD Primary Care Provider [phone] Augustus Brooke MD Unavailable Taz Randhawa MD Unavailable [phone] Allergies No known active allergies Medications triamterene-hyd [...] results. Assessment & Plan (01/21/2023 11:13 AM TACK PULLER): Patient is clinically euthyroid TSH was high [...] PCP Assessment & Plan (01/21/2023 11:20 AM TACK PULLER): Chronic , controlled - continue same medication per PCP Assessment & Plan (08/15/2022 10:29 AM CDT): Chronic , controlled - continue same medication per PCP Osteonecrosis of left hip 08/01/2022 Overview (08/01/2022): Added automatically from request for surgery [id number] Complex sleep apnea syndrome 08/25/2018 Overview (04/02/2024): [...] Idiopathic chronic gout of left knee 06/28/2016 Encounters Date Type Department Care Team Description 03/18/2025 10:00 AM CDT Office Visit [facility] Orthopedics and Sports Medicine [address] [place] [address] [place] [phone] Taz Randhawa MD History of total right hip replacement (Primary Dx) 03/18/2025 9:51 AM CDT - 03/18/2025 11:59 PM CDT Hospital Encounter [facility] [address] [place] [id number] History of total right hip replacement Discharge Disposition: Discharge to home or self care from Last 3 Months Surgical History Surgery Date Site/Laterality Comments ARTERIAL ANEURYSM REPAIR 12/01/2000 - 11/30/2001 [facility] COLONOSCOPY JOINT REPLACEMENT 09/19/2022 Left total hip [...] prn Brain aneurysm 2000 surgical repair at [place] Hemorrhoids occ blood in sto ol Osteonecrosis [...] drink = 0.6 oz pur e alcohol) [facility] Utilities Answer Date Recorded In the past 12 months has th e electric, gas, oil, or water [employer] threatened to shut off services in your [...] often do you attend chur ch or tenriism services? Never 03/18/2024 Do you belong to any clubs o r organizations such as restorationist groups, unions, fraternal or athletic groups, or [...] when you are drinking? 3 or 4 4 Q3: How often do you have [...] place to sleep or slept in a assisted (including now)? No 03/18/2024 Personal Safety Answer Date Recorded Have you ever been in or are you currently in a harmful physical or emotional relationship or is someone making you feel afraid or unsafe? Denies 03/18/2024 Sex and Gender Information Value Date Recorded Sex Assigned at Not on file Legal Sex Male 4:08 PM TACK PULLER Gender Identity Not on file Sexual Orientation [...] 03/18/2025 10:10 AM CDT Plan of Treatment Health Maintenance Due Date Last Done Comments Colon Cancer Screening-Colonoscopy 1971 Depression Screening 1971 Hepatitis C Screening 1971 Prostate Cancer Screening-PSA 1971 DTaP/Tdap/Td Vaccine (1 - Tdap) 1982 Regular Well Visit/Exam 18-64 1989 Zoster Vaccine (1 of 2) 2021 Covid-19 Vaccine (3 - 2023-2 5 season) 2024 05/09/2021, 04/06/2021 Influenza Vaccine (Season Ended) 2025 Hepatitis B Screening Completed 05/21/2022 Pneumococcal vaccine <65 Aged Out No longer eligible based on patient's age to complete this topic Medical Devices Implanted Type Area Extension Forester Device Identifier Shelf Expiration Date Model / Serial / Lot [employer]/ Ortho Reflection R3 Thread Acetabulum Cover Hole [id number] - [id number] Implanted:Qty: 1 on 09/19/2022 by Taz Randhawa MD at [facility] Left: Hip [employer]/Or tho 08/16/2032 [id number] / / [id number] [employer]/ Ortho R3 58mm 36mm Hip 20d Liner Acetabular Xlpe [id number] - [id number] Implanted:Qty: 1 on 09/19/2022 by Taz Randhawa MD at [facility] Left: Hip [employer]/Or tho [id number] 07/10/2031 [id number] / / [id number] [employer]/ Ortho R3 58mm 3 Hole Standard Shell Acetabular Poly [id number] - [id number] Implanted:Qty: 1 on 09/19/2022 by Taz Randhawa MD at [facility] Left: Hip [employer]/Or tho [id number] 04/19/2032 [id number] / / [id number] [employer]/ Ortho Reflection 6.5mm 25mm Hip Acetabular Cancellous Amite Full [id number] - [id number] Implanted:Qty: 1 on 09/19/2022 by Taz Randhawa MD at [facility] Left: Hip [employer]/Or tho [id number] 06/22/2030 [id number] / / [id number] [employer]/ Ortho Synergy 14mm 160mm Standard Offset Hip Stem Femoral Porous [id number] - [id number] Implanted:Qty: 1 on 09/19/2022 by Taz Randhawa MD at [facility] Left: Hip [employer]/Or tho [id number] 05/20/2032 [id number] / / [id number] [employer]/ Ortho 36mm Hip +8mm 12/14 Head Femoral Oxinium [id number] - [id number] Implanted:Qty: 1 on 09/19/2022 by Taz Randhawa MD at [facility] Left: Hip [employer]Rich[employer]/Or tho [id number] 05/24/2032 [id number] / / [id number] [employer]/ Ortho Reflection R3 Contour 6.5mm 25mm Spherical Head Hip Acetabular [id number] - [id number] Implanted:Qty: 1 on 03/18/2024 by Taz Randhawa MD at [facility] Right: Hip [employer]Rich[employer]/Or tho [id number] 09/20/2033 [id number] / / [id number] [employer]/ Ortho Synergy 14mm 160mm Standard Offset Hip Stem Femoral Porous [id number] - [id number] Implanted:Qty: 1 on 03/18/2024 by Taz Randhawa MD at [facility] Right: Hip [employer]Rich[employer]/Or tho [id number] 12/05/2033 [id number] / / [id number] [employer]Rich[employer]/ Ortho 36mm Hip +8mm 12/14 Head Femoral Oxinium [id number] - [id number] Implanted:Qty: 1 on 03/18/2024 by Taz Randhawa MD at [facility] Right: Hip [employer]Rich[employer]/Or tho [id number] 12/29/2033 [id number] / / [id number] [employer]/ Ortho Reflection R3 Thread Acetabulum Cover Hole [id number] - [id number] Implanted:Qty: 1 on 03/18/2024 by Taz Randhawa MD at [facility] Right: Hip [employer]Rich[employer]/Or tho [id number] 10/05/2033 [id number] / / [id number] [employer]Rich[employer]/ Ortho R3 58mm 36mm Hip 20d Liner Acetabular Xlpe [id number] - [id number] Implanted:Qty: 1 on 03/18/2024 by Taz Randhawa MD at [facility] Right: Hip [employer]Rich[employer]/Or tho [id number] 07/16/2033 [id number] / / [id number] [employer]/ Ortho R3 58mm 3 Hole Standard Shell Acetabular Poly [id number] - [id number] Implanted:Qty: 1 on 03/18/2024 by Taz Randhawa MD at [facility] Right: Hip [employer]Rich[employer]/Or tho [id number] 12/04/2033 [id number] / / [id number] Procedures Procedure Name Priority Date/Time Associated Diagnosis [...] 9:57 AM - Electronically signed by Taz Randhawa T: Report ID: [id number] Reading Location: [place] [address] Procedure Note Taz Randhawa MD - 03/18/2025 [...] 9:57 AM - Electronically signed by Taz Randhawa T: Report ID: [id number] Reading Location: [place] [address] Taz Randhawa MD IMG XR PROCEDURES Final Resu lt from Last 3 Months Insurance [facility] Advance Directives For more information, please contact: [phone] * Full Code (Latest Code Status on File) Date Activated Date Inactivated Comments 03/18/2024 2:19 PM 03/19/2024 6:52 PM * Full Code Date Activated Date Inactivated Comments 09/19/2022 4:57 PM 09/20/2022 6:11 PM Care Teams Procurement Accountant Relationship Specialty Start Date End Date Imtiaz Bundy MD [address] [place] [address] PCP - General Emergency Medicine 02/18/24 Victor Manuel Preston MD [address] [address] Referring Physician Cardiology 08/06/22 Augustus Brooke MD [address] [address] Consulting Physician Emergency Medicine 02/18/24 Taz Randhawa MD [address] [address] Consulting Physician Orthopedic Surgery 03/19/24
[2025-04-30 07:43] LABS: GGT 54 U/L (3-95)
[2025-04-30 08:28] LABS: Ceruloplasmin. 26 mg/dL (14-30)
[2025-05-04 12:24] LABS: Actin Antibody (IgG). <20 U (<20)
[2025-05-04 17:09] LABS: Mitochondrial (M2) Ab (IgG). <20.0 U
== END 2025-04-29 12:46 | disposition home or self-care (01) ==
LOC: ANHGOSHLAB 12:47
PROVIDERS: PCP Emergency Medicine
DX: K76.0 Fatty (change of) liver, not elsewhere classified (principal)
CPT/HCPCS: 36415; 82104; 82390; 82977; 83520; 86364

== ENCOUNTER 2025-06-27 09:14 | Outpatient (CLI) | payer OTHER, SELFPAY ==
--- OUTSIDE RECORDS SUMMARY | 2025-06-27 09:36 | XMS_ITS | Clinical Summary ---
Author Organization [facility] Address [address] [place] [address] Care Team Providers Care Municipal Court Judge Name Role Phone Imtiaz Bundy MD Primary Care Provider [phone] Victor Manuel Preston MD Unavailable [phone] Allergies No known active allergies Medications Cholecalciferol (VITAMIN D3) 50 MCG (1999 UT) Tab Take 0.5 tablets (25 mcg total) by mouth daily. Active omeprazole 20 MG capsule Take 1 capsule (20 mg total) by mouth daily as needed. Active hydrALAZINE (APRESOLINE) 25 MG tablet TAKE 1 TABLET BY MOUTH THREE TIMES A DAY 270 tablet 3 2 Active Additional Information Patient taking differently: 25 mg Oral Daily, Reported on 12/15/2024 levothyroxine (SYNTHROID) 175 MCG tablet Take 1 tablet (175 mcg total) by mouth daily. 3 Active lisinopril (PRINIVIL) 30 MG tablet Take 1 tablet (30 mg total) by mouth daily. 3 Active verapamil (CALAN SR) 120 MG ER tablet Take 1 tablet (120 mg total) by mouth daily. New dose 90 tablet 1 5 Active doxazosin (CARDURA) 4 MG tablet TAKE 1 TABLET BY MOUTH EVERY DAY 90 tablet 2 5 Active fenofibrate 160 MG tablet TAKE 1 TABLET BY MOUTH EVERY DAY 90 tablet 2 5 Active triamterene-hyd roCHLOROthiazid e (DYAZIDE) 37.5-25 MG capsule Take 1 capsule by mouth daily. 90 capsule 1 5 Active Active Problems Problem Noted Date Diagnosed Date Chronic kidney disease, stage 2 (mild) 4 Vitamin D deficiency 04/22/2023 Status post total replacement of left hip 2021 Primary hypertension 08/15/2022 Primary hypothyroidism 08/15/2022 Avascular necrosis of bone of hip ([facility]/H [facility]) 08/01/2022 Overview (12/15/2024): Added automatically from request for surgery [id number] Complex sleep apnea syndrome 08/25/2018 Overview (09/03/2022): [...] due to cerebral aneurysm 05/12/2018 Intracranial aneurysm ([facility]) 10/22/2016 Acquired atrophy of thyroid 06/28/2016 Essential hypertension Pure hyperglyceridemia Hyperlipidemia Family History Medical History Relation Comments CHF [...] Sex Assigned at Unknown 12/15/2024 10:46 AM HVAC OPERATIONS TECHNICIAN Legal Sex Male 10:26 PM CDT Gender Identity Not on file Sexual Orientation Not on file Occupation Industry Job Start Date Job End Date Not on file Not on file Not on file Not on file Last Filed Vital Signs Vital Sign Reading Time Taken Comments Blood Pressure 134/60 12/15/2024 11:05 AM HVAC OPERATIONS TECHNICIAN Pulse 67 12/15/2024 11:05 AM HVAC OPERATIONS TECHNICIAN Temperature - - Respiratory Rate - - Oxygen Saturation 96% 12/15/2024 11:05 AM HVAC OPERATIONS TECHNICIAN Inhaled Oxygen Concentration - - Weight 104.8 kg (231 lb) 12/15/2024 11:05 AM HVAC OPERATIONS TECHNICIAN Height 180.3 cm (5' 11) 12/15/2024 11:05 AM HVAC OPERATIONS TECHNICIAN Body Mass Index 32.22 12/15/2024 11:05 AM HVAC OPERATIONS TECHNICIAN Plan of Treatment Upcoming Encounters Date Type Department Care Team (Late st Contact Info) Description 12/21/2025 10:00 AM HVAC OPERATIONS TECHNICIAN Office Visit [facility], [address] [id number] Victor Manuel Preston MD [facility] [address] [place], [place] [id number] Health Maintenance Due Date Last Done Comments Colorectal Cancer Screening Colonoscopy (10 Years) 1971 Annual Physical 1974 Hepatitis C 1989 DTaP, Tdap and Td Vaccines ( 1 - Tdap) 1990 Hepatitis B Vaccines (1 of 3 - 19+ 3-dose series) 1990 Pneumococcal Vaccine: 50+ Years (1 of 1 - PCV) 2021 Zoster Vaccines (1 of 2) 2021 COVID-19 Vaccine (3 - 2023-2 5 season) 2024 05/09/2021, 04/06/2021 Meningococcal B Vaccine Aged Out No l onger eligible based on patient's age to complete this topic Meningococcal Vaccine Aged Out No danny sam eligible based on patient's age to complete this topic RSV Immunizations Under 20 Months Aged Out No longer eligible b ased on patient's age to complete this topic Insurance STACK Care Teams Municipal Court Judge Relationship Specialty Start Date End Date Imtiaz Bundy MD [address] [place] [address] [address] [place] [address] PCP - General FAMILY PRACTICE 05/01/16 Victor Manuel Preston MD [facility] [address] [place] [address] [place] Body Designer CARDIOVASCULAR DISEASE 05/01/16
--- OUTSIDE RECORDS SUMMARY | 2025-06-27 09:36 | XMS_ITS | Referral Summary ---
Author Organization [facility] Address [address] [place] [address] Care Team Providers Care Assembler Skylights Name Role Phone Victor Manuel Preston MD Unavailable [phone] Imtiaz Bundy MD Primary Care Provider [phone] Augustus Brooke MD Unavailable Taz Randhawa MD Unavailable [phone] Allergies No known active allergies Medications triamterene-hyd [...] results. Assessment & Plan (01/21/2023 11:13 AM MONEY MARKET DEALER): Patient is clinically euthyroid TSH was high [...] PCP Assessment & Plan (01/21/2023 11:20 AM MONEY MARKET DEALER): Chronic , controlled - continue same medication per PCP Assessment & Plan (08/15/2022 10:29 AM CDT): Chronic , controlled - continue same medication per PCP Osteonecrosis of left hip 08/01/2022 Overview (08/01/2022): Added automatically from request for surgery [id number] Complex sleep apnea syndrome 08/25/2018 Overview (04/02/2024): [...] drink = 0.6 oz pur e alcohol) [facility] Utilities Answer Date Recorded In the past 12 months has [employer], gas, oil, or water [employer] threatened to shut off services in your [...] often do you attend chur ch or scientologist services? Never 03/18/2024 Do you belong to any clubs o r organizations such as sabianism groups, unions, fraternal or athletic groups, or [...] place to sleep or slept in a usp (including now)? No 03/18/2024 Personal Safety Answer Date Recorded Have you ever been in or are you currently in a harmful physical or emotional relationship or is someone making you feel afraid or unsafe? Denies 03/18/2024 Sex and Gender Information Value Date Recorded Sex Assigned at Not on file Legal Sex Male 4:08 PM MONEY MARKET DEALER Gender Identity Not on file Sexual Orientation [...] on file Medical Devices Implanted Type Area Social Work Case Manager Device Identifier Shelf Expiration Date Model / Serial / Lot [employer]/ Ortho Reflection R3 Thread Acetabulum Cover Hole [id number] - [id number] Implanted:Qty: 1 on 09/19/2022 by Taz Randhawa MD at [facility] Left: Hip [employer]Rich[employer]/Or tho 08/16/2032 [id number] / / [id number] [employer]/ Ortho R3 58mm 36mm Hip 20d Liner Acetabular Xlpe [id number] - [id number] Implanted:Qty: 1 on 09/19/2022 by Taz Randhawa MD at [facility] Left: Hip [employer]/Or tho [id number] 07/10/2031 [id number] / / [id number] [employer]/ Ortho R3 58mm 3 Hole Standard Shell Acetabular Poly [id number] - [id number] Implanted:Qty: 1 on 09/19/2022 by Taz Randhawa MD at [facility] Left: Hip [employer]Rich[employer]/Or tho [id number] 04/19/2032 [id number] / / [id number] [employer]/ Ortho Reflection 6.5mm 25mm Hip Acetabular Cancellous Pandora Full [id number] - [id number] Implanted:Qty: 1 on 09/19/2022 by Taz Randhawa MD at [facility] Left: Hip [employer]Rich[employer]/Or tho [id number] 06/22/2030 [id number] / / [id number] [employer]/ Ortho Synergy 14mm 160mm Standard Offset Hip Stem Femoral Porous [id number] - [id number] Implanted:Qty: 1 on 09/19/2022 by Taz Randhawa MD at [facility] Left: Hip [employer]Rich[employer]/Or tho [id number] 05/20/2032 [id number] / / [id number] [employer]/ Ortho 36mm Hip +8mm 12/14 Head Femoral Oxinium [id number] - [id number] Implanted:Qty: 1 on 09/19/2022 by Taz Randhawa MD at [facility] Left: Hip [employer]Rich[employer]/Or tho [id number] 05/24/2032 [id number] / / [id number] [employer]/ Ortho Reflection R3 Contour 6.5mm 25mm Spherical Head Hip Acetabular [id number] - [id number] Implanted:Qty: 1 on 03/18/2024 by Taz Randhawa MD at [facility] Right: Hip [employer]Richco/Or tho [id number] 09/20/2033 [id number] / / [id number] Lenoard & Nephew/Richco/ Ortho Synergy 14mm 160mm Standard Offset Hip Stem Femoral Porous [id number] - [id number] Implanted:Qty: 1 on 03/18/2024 by Taz Randhawa MD at [facility] Right: Hip [employer]Rich[employer]/Or tho [id number] 12/05/2033 [id number] / / [id number] [employer]Rich[employer]/ Ortho 36mm Hip +8mm 12/14 Head Femoral Oxinium [id number] - [id number] Implanted:Qty: 1 on 03/18/2024 by Taz Randhawa MD at [facility] Right: Hip [employer]Richco/Or tho [id number] 12/29/2033 [id number] / / [id number] [employer]Rich[employer]/ Ortho Reflection R3 Thread Acetabulum Cover Hole [id number] - [id number] Implanted:Qty: 1 on 03/18/2024 by Taz Randhawa MD at [facility] Right: Hip [employer]Richco/Or tho [id number] 10/05/2033 [id number] / / [id number] [employer]Rich[employer]/ Ortho R3 58mm 36mm Hip 20d Liner Acetabular Xlpe [id number] - [id number] Implanted:Qty: 1 on 03/18/2024 by Taz Randhawa MD at [facility] Right: Hip [employer]/Richco/Or tho [id number] 07/16/2033 [id number] / / [id number] [employer]Rich[employer]/ Ortho R3 58mm 3 Hole Standard Shell Acetabular Poly [id number] - [id number] Implanted:Qty: 1 on 03/18/2024 by Taz Randhawa MD at [facility] Right: Hip [employer]Richco/Or tho [id number] 12/04/2033 [id number] / / [id number] Insurance [facility] Advance Directives For more information, please contact: [phone] * Full Code (Latest Code Status on File) Date Activated Date Inactivated Comments 03/18/2024 2:19 PM 03/19/2024 6:52 PM * Full Code Date Activated Date Inactivated Comments 09/19/2022 4:57 PM 09/20/2022 6:11 PM Care Teams Assembler Skylights Relationship Specialty Start Date End Date Imtiaz Bundy MD [address] [facility] [address] [place] [address] PCP - General Emergency Medicine 02/18/24 Victor Manuel Preston MD 3 [facility] [address] [place] [address] Referring Physician Cardiology 08/06/22 Augustus Brooke MD [address] [address] Consulting Physician Emergency Medicine 02/18/24 Taz Randhawa MD [address] [address] Consulting Physician Orthopedic Surgery 03/19/24
--- OUTSIDE RECORDS SUMMARY | 2025-06-27 09:36 | XMS_ITS | Clinical Summary ---
Author Organization [facility] Address [address] [place] [address] Phone Care Team Providers Care Junior Accountant Name Role Phone Imtiaz Bundy MD Primary Care Provider [phone] Allergies No known active allergies Medications triamterene-hydr [...] - PCV13 ) 1990 Influenza Vaccine (#1) 2025 Insurance RELIGIOUS CARE/MEDISHARE MULTIPLAN RELIGIOUS CARE/MEDISHARE MULTIPLAN Care Teams Junior Accountant Relationship Specialty Start Date End Date Imtiaz Bundy MD PCP - General Family Medicine 08/21/22
--- OUTSIDE RECORDS SUMMARY | 2025-06-27 09:36 | XMS_ITS | Encounter Summary ---
Author Organization [facility] Address [address] [place] [address] Care Team Providers Care Coal Loader Name Role Phone Imtiaz Bundy MD Primary Care Provider [phone] Victor Manuel Preston MD Unavailable [phone] Encounter Details Date Type Department Care Team (Late st Contact Info) Description 04/16/2017 [facility] AT [address] [address] Kandis Carey MA Social History Tobacco Use Types Packs/Day Years Used Date Smoking Tobacco: Never Smokeless Tobacco: Never Alcohol Use Standard Drinks/Week Comments Yes 12 (1 standard drink = 0.6 oz pu re alcohol) 12 drinks per week Comments Unknown Sex and Gender Information Value Date Recorded Sex Assigned at Unknown 12/15/2024 10:46 AM INDUSTRIAL RELATIONS ANALYST Legal Sex Male 10:26 PM CDT Gender [...] st Contact Info) Description 12/21/2025 10:00 AM INDUSTRIAL RELATIONS ANALYST Office Visit [facility] [address] [facility], [place] [address] [place] [address] Victor Manuel Preston MD [facility]. [address] [id number] documented as of this encounter Procedures Procedure [...] * (ABNORMAL) BASIC METABOLIC PANEL (05/07/2018) Pathologist [facility] SODIUM S/P/B 138 POTASSIUM S/P/B 4.3 CO2 25 CHLORIDE S/P/B 105 GLUCOSE 85 mg/dL CALCIUM S/P/B 9.7 BUN 19 CREATININE S/P/B 0.88 0.7 - 1.3 EGFR AFR. AMER. 119 EGFR NON-AFR. AMER. 103(A) <=90 05/07/2018 us Doc [facility]ORATORY Final Result * LIPID PANEL (05/07/2018) [facility] CHOLESTEROL 173 HDL 62 TRIGLYCERIDES 75 NON HDL CHOLESTEROL 111 LDL (CALCULATED) 95 05/07/2018 us Doc [facility] Abstract LABORATORY Final Result * PROSTATE SPECIFIC ANTIGEN,TOTAL (05/30/2017) [facility] PSA 0.7 05/30/2017 us Doc [facility] Abstract LABORATORY Final Result * CBC (OUTSIDE LAB) (05/30/2017) [facility] WBC 7.0 HGB 13.0 HCT 38.1 PLT 334 05/30/2017 us Doc [facility] Abstract LAB-OUTSIDE/ABSTRACTED Final Result * THYROXINE, FREE (FT4) (05/30/2017) [facility] FREE T4 1.6 05/30/2017 us Doc [facility] Abstract LABORATORY Final Result * THYROID STIM HORMONE, TSH (05/30/2017) TSH 3.48 05/30/2017 us Doc [facility] Abstract LABORATORY Final Result * HEMOGLOBIN, GLYCOSYLATED (05/30/2017) Pathologist [facility] HGB A1C 5.0 05/30/2017 us Doc [facility] Abstract LABORATORY Final Result * HEPATIC FUNCTION PANEL (05/30/2017) Pathologist [facility] ALBUMIN S/P/B 4.7 3.5 - 5.0 ALKALINE PHOSPHATASE S/P/B 34 ALT 16 AST 25 BILIRUBIN TOTAL S/P/B 0.5 TOTAL PROTEIN S/P/B 7.7 GLOBULIN 3.0 05/30/2017 us Doc [facility] Abstract LABORATORY Final Result * THYROXINE, FREE (FT4) (02/03/2017) Pathologist [facility] FREE T4 2.0 02/03/2017 us Doc [facility] Abstract LABORATORY Final Result * THYROID STIM HORMONE, TSH (02/03/2017) Pathologist [facility] TSH 1.970 02/03/2017 us Doc [facility] Abstract LABORATORY Edited Resul t - Final * LIPID PANEL (11/11/2016) Pathologist [facility] CHOLESTEROL 176 HDL 62 TRIGLYCERIDES 151 LDL (CALCULATED) 84 11/11/2016 us Doc [facility] Abstract LABORATORY Final Result documented in this encounter Visit Diagnoses Not on filedocumented in this encounter Care Teams Coal Loader Relationship Specialty Start Date End Date Imtiaz Bundy MD [address] [address] PCP - General FAMILY PRACTICE 05/01/16 Victor Manuel Preston MD [facility]. [address] [address] Azeb Shift Superintendent CARDIOVASCULAR DISEASE 05/01/16 documented as of this encounter
--- OUTSIDE RECORDS SUMMARY | 2025-06-27 09:36 | XMS_ITS | Encounter Summary ---
Author Organization [facility] Address [address] [place] [address] Care Team Providers Care Chief Controller Name Role Phone Imtiaz Bundy MD Primary Care Provider [phone] Encounter Details Date Type Department Care Team (Late st Contact Info) Description 07/14/2019 Telephone [facility] [address] [place] [address] Donald Kemp MD [address] [place] [address] Social History Tobacco Use Types Packs/Day Years Used Date Smoking Tobacco: Never Smokeless Tobacco: Never Alcohol Use Standard Drinks/Week Comments No 0 (1 standard drink = 0.6 oz pur e alcohol) Sex and Gender Information Value Date Recorded Sex Assigned at Not on file 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 Pt is now taking 175 mcg. documented in this encounter Plan of Treatment Not on file documented as of this encounter Visit Diagnoses Not on filedocumented in this encounter Care Teams Chief Controller Relationship Specialty Start Date End Date Imtiaz Bundy MD [address] [place] [address] PCP - General 04/07/18 documented as of this encounter
--- OUTSIDE RECORDS SUMMARY | 2025-06-27 09:36 | XMS_ITS | Clinical Summary ---
Author Organization [facility] Address [address] [place] [address] Care Team Providers Care Drop Hammer Pile Driver Operator Name Role Phone Victor Manuel Preston MD Unavailable [phone] Imtiaz Bundy MD Primary Care Provider [phone] Augustus Brooke MD Unavailable Taz Randhawa MD Unavailable [phone] Allergies No known active allergies Medications triamterene-hyd [...] results. Assessment & Plan (01/21/2023 11:13 AM TURF MANAGER): Patient is clinically euthyroid TSH was [...] PCP Assessment & Plan (01/21/2023 11:20 AM TURF MANAGER): Chronic , controlled - continue same medication per PCP Assessment & Plan (08/15/2022 10:29 AM CDT): Chronic , controlled - continue same medication per PCP Osteonecrosis of left hip 08/01/2022 Overview (08/01/2022): Added automatically from request for surgery [id number] Complex sleep apnea syndrome 08/25/2018 Overview (04/02/2024): [...] Comments ARTERIAL ANEURYSM REPAIR 12/01/2000 - 11/30/2001 [facility] COLONOSCOPY JOINT REPLACEMENT 09/19/2022 Left total hip [...] prn Brain aneurysm 2000 surgical repair at [place] Hemorrhoids occ blood in sto ol Osteonecrosis [...] drink = 0.6 oz pur e alcohol) [facility] Utilities Answer Date Recorded In the past 12 months has [employer] gas, oil, or water [employer] threatened to shut off services in your [...] often do you attend chur ch or methodist services? Never 03/18/2024 Do you belong to any clubs o r organizations such as taoist groups, unions, fraternal or athletic groups, or [...] place to sleep or slept in a nursing home (including now)? No 03/18/2024 Personal Safety Answer Date Recorded Have you ever been in or are you currently in a harmful physical or emotional relationship or is someone making you feel afraid or unsafe? Denies 03/18/2024 Sex and Gender Information Value Date Recorded Sex Assigned at Not on file Legal Sex Male 4:08 PM TURF MANAGER Gender Identity Not on file Sexual [...] season) 2024 05/09/2021, 04/06/2021 Influenza Vaccine (#1) 2025 Hepatitis B Screening Completed 05/21/2022 Pneumococcal vaccine <65 Aged Out No longer eligible based on patient's age to complete this topic Medical Devices Implanted Type Area Corn Miller Device Identifier Shelf Expiration Date Model / Serial / Lot [employer]/ Ortho Reflection R3 Thread Acetabulum Cover Hole [id number] - [id number] Implanted:Qty: 1 on 09/19/2022 by Taz Randhawa MD at [facility] Left: Hip [employer]/Or tho 08/16/2032 [id number] / / [id number] [employer]/ Ortho R3 58mm 36mm Hip 20d Liner Acetabular Xlpe [id number] - [id number] Implanted:Qty: 1 on 09/19/2022 by Taz Randhawa MD at [facility] Left: Hip [employer]Or tho [id number] 07/10/2031 [id number] / / [id number] [employer]/ Ortho R3 58mm 3 Hole Standard Shell Acetabular Poly [id number] - [id number] Implanted:Qty: 1 on 09/19/2022 by Taz Randhawa MD at [facility] Left: Hip [employer]Or tho [id number] 04/19/2032 [id number] / / [id number] [employer]/ Ortho Reflection 6.5mm 25mm Hip Acetabular Cancellous Carolina Full [id number] - [id number] Implanted:Qty: 1 on 09/19/2022 by Taz Randhawa MD at [facility] Left: Hip [employer]Or tho [id number] 06/22/2030 [id number] / / [id number] [employer]/ Ortho Synergy 14mm 160mm Standard Offset Hip Stem Femoral Porous [id number] - [id number] Implanted:Qty: 1 on 09/19/2022 by Taz Randhawa MD at [facility] Left: Hip [employer]Or tho [id number] 05/20/2032 [id number] / / [id number] [employer]/ Ortho 36mm Hip +8mm 12/14 Head Femoral Oxinium [id number] - [id number] Implanted:Qty: 1 on 09/19/2022 by Taz Randhawa MD at [facility] Left: Hip [employer]Or tho [id number] 05/24/2032 [id number] / / [id number] [employer]/ Ortho Reflection R3 Contour 6.5mm 25mm Spherical Head Hip Acetabular [id number] - [id number] Implanted:Qty: 1 on 03/18/2024 by Taz Randhawa MD at [facility] Right: Hip [employer]Or tho [id number] 09/20/2033 [id number] / / [id number] [employer]/ Ortho Synergy 14mm 160mm Standard Offset Hip Stem Femoral Porous [id number] - [id number] Implanted:Qty: 1 on 03/18/2024 by Taz Randhawa MD at [facility] Right: Hip [employer]Or tho [id number] 12/05/2033 [id number] / / [id number] [employer]/ Ortho 36mm Hip +8mm 12/14 Head Femoral Oxinium [id number] - [id number] Implanted:Qty: 1 on 03/18/2024 by Taz Randhawa MD at [facility] Right: Hip [employer]Or tho [id number] 12/29/2033 [id number] / / [id number] [employer]/ Ortho Reflection R3 Thread Acetabulum Cover Hole [id number] - [id number] Implanted:Qty: 1 on 03/18/2024 by Taz Randhawa MD at [facility] Right: Hip [employer]/Or tho [id number] 10/05/2033 [id number] / / [id number] [employer]/ Ortho R3 58mm 36mm Hip 20d Liner Acetabular Xlpe [id number] - [id number] Implanted:Qty: 1 on 03/18/2024 by Taz Randhawa MD at [facility] Right: Hip [employer]/Or tho [id number] 07/16/2033 [id number] / / [id number] [employer]/ Ortho R3 58mm 3 Hole Standard Shell Acetabular Poly [id number] - [id number] Implanted:Qty: 1 on 03/18/2024 by Taz Randhawa MD at [facility] Right: Hip [employer]Or tho [id number] 12/04/2033 [id number] / / [id number] Insurance [facility] Advance Directives For more information, please contact: [phone] * Full Code (Latest Code Status on File) Date Activated Date Inactivated Comments 03/18/2024 2:19 PM 03/19/2024 6:52 PM * Full Code Date Activated Date Inactivated Comments 09/19/2022 4:57 PM 09/20/2022 6:11 PM Care Teams Drop Hammer Pile Driver Operator Relationship Specialty Start Date End Date Imtiaz Bundy MD [address] [facility] [address] [place] [address] PCP - General Emergency Medicine 02/18/24 Victor Manuel Preston MD [address] [address] Referring Physician Cardiology 08/06/22 Augustus Brooke MD [address] [facility] 1 [place] [address] Consulting Physician Emergency Medicine 02/18/24 Taz Randhawa MD [address] [place] [address] Consulting Physician Orthopedic Surgery 03/19/24
--- OUTSIDE RECORDS SUMMARY | 2025-06-27 09:36 | XMS_ITS | Clinical Summary ---
Author Organization [facility] Address [address] [place] [address] Care Team Providers Care Filling Winder Name Role Phone Imtiaz Bundy MD Primary Care Provider Source Comments [facility],non-owned Affiliates and Associated Physician Practices is amultiple site organization consisting of ambulatory clinics and hospital sitesin [place], [place], [place] and [place]. This disclosure is being madepursuant to the Care Everywhere program and may not contain all information available regarding this patient. Last updated 18.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 Gender Identity Not on file Sexual Orientation [...] season) 2024 DEPRESSION SCREENING 12/01/2024 INFLUENZA VACCINE (#1) 2025 HIB VACCINE Aged Out No longer [...] PANEL (CALCIUM TOTAL) Routine 01/27/2018 10:58 AM AIRPLANE RENTAL CLERK from Last 3 Months or Most Recently Relevant to Health Maintenance Results * (ABNORMAL) BASIC METABOLIC PANEL (CALCIUM TOTAL) (01/27/2018 10:58 AM AIRPLANE RENTAL CLERK) Glucose 93 65 - 99 mg/dL AB ([facility]) Comment: Fasting reference interval BUN 28(H) 7 [...] mg/dL [facility]) Comment: Test Performed at: [employer] [address] [place] [address] JAGJIT WHITTINGTON DO,MPH Blood specimen (specimen) BLOOD SPECIMEN / Unknown 01/27/2018 10:58 AM AIRPLANE RENTAL CLERK 01/27/2018 11:01 AM AIRPLANE RENTAL CLERK us Leonardo Barkley MD LAB - CHEMISTRY ORDERABLES Final Result [facility] [id number] from Last 3 Months or Most Recently Relevant to Health Maintenance Insurance [facility] Care Teams Filling Winder Relationship Specialty Start Date End Date Imtiaz Bundy MD [address] [place] [address] PCP - General 04/07/18
--- OUTSIDE RECORDS SUMMARY | 2025-06-27 09:36 | XMS_ITS | Data Portability ---
Author Organization [facility] [email or web address], Main Office Address [address] [place] [address] Care Team Providers Care Chief Telephone Operator Name Role Phone GIL ROBERTS Primary Care Provider Assessment No assessment recorded. Plan of Treatment Reminders Order Date Submit Date Provider Last Modified By Organization Details Last Modified Time Details Appointments Marsha cloud Patient 15 2024 01:00P M Gisselle Isidro MD Not available Not available Not available Lab gamma-gl utamyl transfer ase (ggt), serum [address] [place] [address] (Lab), [address] [place], [address], 05/05/2025 08:02:52 actin IgG Ab, QN, serum or plasma [address] [place] [address] (Lab), [address] [place], [address], 05/05/2025 08:03:00 alpha-1- antitryp sin (aat), QN, serum [address] [place] [address] (Lab), [address] [place], [address], 05/05/2025 08:03:21 unlisted lab - mitochon drial antibody titer [address] (Lab), [address] [place], [address], 05/05/2025 08:03:29 cerulopl asmin, serum 2024 [address]25 [email or web address] [facility] (Lab), [address] [place], [address], 05/05/2025 08:03:08 Referral None recorded . Procedures None recorded . Surgeries None recorded . Imaging None recorded . Medication Orders None recorded . Patient TargetsNo targets recorded. Patient Instructions Encounter Date Encounter Id Patient Instructions Last Modified By Organization Details Last Modified Time 04/20/2025 [id number] LOW VFAT DIET , EXERCISE 300 MIN OR 175 MIN PER WEEK. [email or web address] Not available 04/20/2025 14:39:42 PT WITH FATTY LIVER . CHECK LIVER MARKERS . F/U IN 6 MTHS . WILL CALL WITH RESULTS . Not available 04/20/2025 14:40:19 Reason for Referral None Reported. Results Created Date Observation Date Name Description Value Unit Range Abnormal Flag Note LastModifiedBy Organization Detail LastModifiedTime Result Notes None recorded. Problems Name Problem SNOMED Code Status Onset Date Resolution Date Notes Provider Name and Address Organization Details Recorded Time Steatotic liver disease Active 025 Gisselle Isidro MD [address] [facility] [facility] [address], [place], [address] , [place] 14:34:53 Problem Notes None recorded. Procedures Surgical History Date Name Laterality Status Provider Name and Address Organization Details Recorded Time Brain aneurysm repr simple completed Rodger Aquino Hannah [place] 11/15/2024 10:51:38 Hip surgery completed Rodger Aquino Hannah [employer] [facility] [email or web address] 11/15/2024 10:51:45 Imaging Results None recorded. Procedure [...] in Arterial blood by Pulse oximetry Systolic And Diastolic Provider Name and Address Organization Details Last Updated DateTime 180.34 cm 31.5 kg/m2 220826. 88 g 87 /min 96 % 96 % 156/84 mm[Hg] RUSS Butler [facility] [employer] [facility] 14:07:40 Social History None recorded. [...] available 2023 10:53:09 Medical History Condition Response GERD/NAUSEA Y ANEURYSM Y GOUT Y GI PROBLEMS Y HYPERTENSION Y Past Encounters Encounter ID Performer Location Encounter Start Date Encounter Closed Date Diagnosis/Indication Diagnosis SNOMED-CT Code Diagnosis ICD10 Code Diagnosis Note [id number] Gisselle Isidro MD [facility] General Surgery [address] [facility] [place] [address] [place] [address] 04/20/2025 14:02:38 04/20/2025 14:56:53 Steatotic liver disease 887224667 K76.0 Health Concerns Section Related Observation LastModified by Organization Detai ls LastModified Time None Recorded Concern Status LastModified by Organization Details LastModified Time None Recorded Advance Directives Directive None Recorded Payers Insurance Date Sequence Insurance Name Policy Number Policy Hoffman Covered Member ID Hoffman Member ID Guarantor Name 05/10/2025 1 [facility] (MEDICAID HMO) [id number] Erlin Mullins [id number] Erlin Mullins 04/20/2025 1 [facility] (MEDICAID HMO) Erlin Mullins [id number] Erlin Mullins
--- NOTE | 2025-06-27 09:44 | CY_PTH ---
PATIENT: Erlin Mullins LOC: [facility] U#:[id number] AGE/SX: 54/M ROOM: RE06/27/[address]: Imtiaz Bundy MD : 1970 BED: DIS: 06/27/2025 SPEC #: [id number] RECD: 06/27/25 13:25 STATUS: CHERRY LION #: [id number] ISABEL: 06/27/25 09:[address]: Imtiaz Bundy DEPT: [facility] Cytology RECD BY: Екатерина Keenan Tissues: A - Urine Procedures: Cytopathology Cytospin
[2025-06-27 13:06] LABS: Hematocrit 46.7 % (42.0-52.0); Hemoglobin 15.2 g/dL (14.0-18.0); Mean Corpuscular HGB Conc 32.5 g/dl (32-36); Mean Corpuscular Hemoglobin 30.6 pg (26-34); Mean Corpuscular Volume 94.0 fl (80-100); Platelet Count Result 278 k/mm3 (150-375); Red Blood Count 4.97 M/mm3 (4.6-6.20); White Blood Count 7.1 K/mm3 (4.5-10.0)
[2025-06-27 13:18] LABS: Add Urine Microscopic? NO; Appearance Urine Clear (Clear); Glucose Urine UA Negative (Negative); Leukocyte Esterase Ur Negative LEU/UL (Negative); Nitrate Urine Negative (Negative); Specific Grav Ur 1.016 (1.001-1.035)
[2025-06-27 14:18] LABS: Free T4 Free Thyroxine 1.35 ng/dL (0.78-2.19)
[2025-06-27 14:28] LABS: Alanine Aminotransferase 24 U/L (6-50); Albumin Level 4.7 g/dL (3.5-5.1); Alkaline Phosphatase 50 U/L (38-126); Anion Gap 12 mmol/L (4-12); Aspartate Amino Transferase 39 U/L (17-59); Bilirubin,Total 0.3 mg/dL (0.2-1.3); Blood Urea Nitrogen 23 mg/dL (9-20); Calcium 10.5 mg/dL (8.4-10.2); Carbon Dioxide 23 mmol/L (22-30); Chloride 106 mmol/L (98-107); Cholesterol 182 mg/dL (0-200); Estimated Glomerular Filt Rate > 60; Glucose 86 mg/dL (65-110); HDL Direct 54 mg/dL; Potassium 4.1 mmol/L (3.4-5.0); Sodium 141 mmol/L (137-145); Total Protein 8.5 g/dL (6.3-8.2); Triglycerides 64 mg/dL (<150)
[2025-06-27 14:58] LABS: MALB Creatinine Ratio 9.0 mg/g (0-30)
[2025-06-27 15:00] LABS: Prostate Specific Antigen 1.9 ng/mL (< OR = 4.0); Thyroid Stimulating Hormone 1.800 uIU/mL (0.465-4.680)
== END 2025-06-27 09:15 | disposition home or self-care (01) ==
LOC: ANHGOSHLAB 09:15
PROVIDERS: PCP Emergency Medicine; Visit Provider Emergency Medicine
DX: Z00.00 Encounter for general adult medical examination without abnormal findings (principal); K21.00 Gastro-esophageal reflux disease with esophagitis, without bleeding; E03.9 Hypothyroidism, unspecified; I10 Essential (primary) hypertension; R31.9 Hematuria, unspecified
CPT/HCPCS: 36415; 80053; 80061; 81003; 82043; 82306; 84153; 84439; 84443; 85027; 88108

== ENCOUNTER 2025-10-26 10:29 | Outpatient (CLI) | payer OTHER, SELFPAY ==
--- NOTE | 2025-10-26 | CY_PTH ---
PATIENT: Erlin Mullins LOC: [facility] #:[id number] AGE/SX: 54/M ROOM: RE10/26/[address]: Imtiaz Bundy MD : 1970 BED: DIS: 10/26/2025 SPEC #: [id number] RECD: 10/26/25 13:22 STATUS: CHERRY REAye #: [id number] ISABEL: 10/26/25 00:[address]: Imtiaz Bundy DEPT: [facility] Cytology RECD BY: Екатерина Keenan Tissues: A - Urine Procedures: Cytopathology Cytospin
--- OUTSIDE RECORDS SUMMARY | 2025-10-26 11:14 | XMS_ITS | Clinical Summary ---
Author Organization [facility] Address [address] [place] [address] Care Team Providers Care Dispute Specialist Name Role Phone Victor Manuel Preston MD Unavailable [phone] Imtiaz Bundy MD Primary Care Provider [phone] Augustus Brooke MD Unavailable Taz Randhawa MD Unavailable [phone] Allergies No known active allergies Medications triamterene-hyd [...] results. Assessment & Plan (01/21/2023 11:13 AM MATRIX WORKER): Patient is clinically euthyroid TSH was high [...] PCP Assessment & Plan (01/21/2023 11:20 AM MATRIX WORKER): Chronic , controlled - continue same medication per PCP Assessment & Plan (08/15/2022 10:29 AM CDT): Chronic , controlled - continue same medication per PCP Osteonecrosis of left hip 08/01/2022 Overview (08/01/2022): Added automatically from request for surgery [id number] Complex sleep apnea syndrome 08/25/2018 Overview (04/02/2024): [...] Comments ARTERIAL ANEURYSM REPAIR 12/01/2000 - 11/30/2001 [facility] COLONOSCOPY JOINT REPLACEMENT 09/19/2022 Left total [...] prn Brain aneurysm 2000 surgical repair at [place] Hemorrhoids occ blood in sto ol Osteonecrosis Retention of urine c/o burning/p oor flow, [...] drink = 0.6 oz pur e alcohol) [facility] Utilities Answer Date Recorded In the past 12 months has batterii gas, oil, or water Age of Learning threatened to shut off services in your home? No 03/18/2024 Social Connection and Isolation Panel Answer Date Recorded In a typical week, [...] any clubs o r organizations such as shinto groups, unions, fraternal or athletic groups, or [...] place to sleep or slept in a group home (including now)? No 03/18/2024 Personal Safety Answer Date Recorded Have you ever been in or are you currently in a harmful physical or emotional relationship or is someone making you feel afraid or unsafe? Denies 03/18/2024 Sex and Gender Information Value Date Recorded Sex Assigned at Not on file Legal Sex Male 4:08 PM MATRIX WORKER Gender Identity Not on file Sexual Orientation [...] of 2) 2021 Covid-19 Vaccine (3 - 2024-2 6 season) 2025 05/09/2021, 04/06/2021 Influenza Vaccine (#1) 2025 Hepatitis B Screening Completed 05/21/2022 Pneumococcal vaccine <65 Aged Out No longer eligible based on patient's age to complete this topic Medical Devices Implanted Type Area Transition Advisor Device Identifier Shelf Expiration Date Model / Serial / Lot [employer]/ Ortho Reflection R3 Thread Acetabulum Cover Hole [id number] - [id number] Implanted:Qty: 1 on 09/19/2022 by Taz Randhawa MD at [facility] Left: Hip [employer]/Or tho 08/16/2032 [id number] / / [id number] [employer]/ Ortho R3 58mm 36mm Hip 20d Liner Acetabular Xlpe [id number] - [id number] Implanted:Qty: 1 on 09/19/2022 by Taz Randhawa MD at [facility] Left: Hip [employer]Or tho [id number] 07/10/2031 [id number] / / [id number] [employer]/ Ortho R3 58mm 3 Hole Standard Shell Acetabular Poly [id number] - [id number] Implanted:Qty: 1 on 09/19/2022 by Taz Randhawa MD at [facility] Left: Hip [employer]Or tho [id number] 04/19/2032 [id number] / / [id number] [employer]/ Ortho Reflection 6.5mm 25mm Hip Acetabular Cancellous [place] Full [id number] - [id number] Implanted:Qty: 1 on 09/19/2022 by Taz Randhawa MD at [facility] Left: Hip [employer]Or tho [id number] 06/22/2030 [id number] / / [id number] [employer]/ Ortho Synergy 14mm 160mm Standard Offset Hip Stem Femoral Porous [id number] - [id number] Implanted:Qty: 1 on 09/19/2022 by Taz Randhawa MD at [facility] Left: Hip [employer]Or tho [id number] 05/20/2032 [id number] / / [id number] [employer]/ Ortho 36mm Hip +8mm 12/14 Head Femoral Oxinium [id number] - [id number] Implanted:Qty: 1 on 09/19/2022 by Taz Randhawa MD at [facility] Left: Hip [employer]Or tho [id number] 05/24/2032 [id number] / / [id number] [employer]/ Ortho Reflection R3 Contour 6.5mm 25mm Spherical Head Hip Acetabular [id number] - [id number] Implanted:Qty: 1 on 03/18/2024 by Taz Randhawa MD at [facility] Right: Hip [employer]Or tho [id number] 09/20/2033 [id number] / / [id number] [employer]/ Ortho Synergy 14mm 160mm Standard Offset Hip Stem Femoral Porous [id number] - [id number] Implanted:Qty: 1 on 03/18/2024 by Taz Randhawa MD at [facility] Right: Hip [employer]/Or tho [id number] 12/05/2033 [id number] / / [id number] [employer]/ Ortho 36mm Hip +8mm 12/14 Head Femoral Oxinium [id number] - [id number] Implanted:Qty: 1 on 03/18/2024 by Taz Randhawa MD at [facility] Right: Hip [employer]/Or tho [id number] 12/29/2033 [id number] / / [id number] [employer]/ Ortho Reflection R3 Thread Acetabulum Cover Hole [id number] - [id number] Implanted:Qty: 1 on 03/18/2024 by Taz Randhawa MD at [facility] Right: Hip [employer]/Or tho [id number] 10/05/2033 [id number] / / [id number] [employer]/ Ortho R3 58mm 36mm Hip 20d Liner Acetabular Xlpe [id number] - [id number] Implanted:Qty: 1 on 03/18/2024 by Taz Randhawa MD at [facility] Right: Hip [employer]/Or tho [id number] 07/16/2033 [id number] / / [id number] [employer]/ Ortho R3 58mm 3 Hole Standard Shell Acetabular Poly [id number] - [id number] Implanted:Qty: 1 on 03/18/2024 by Taz Randhawa MD at [facility] Right: Hip [employer]/Or tho [id number] 12/04/2033 [id number] / / [id number] Insurance [facility] Advance Directives For more information, please contact: [phone] * Full Code (Latest Code Status on File) Date Activated Date Inactivated Comments 03/18/2024 2:19 PM 03/19/2024 6:52 PM * Full Code Date Activated Date Inactivated Comments 09/19/2022 4:57 PM 09/20/2022 6:11 PM Care Teams Dispute Specialist Relationship Specialty Start Date End Date Imtiaz Bundy MD [address] [facility] [address] [place] [address] PCP - General Emergency Medicine 02/18/24 Victor Manuel Preston MD [address] [facility] [address] [place] [address] Referring Physician Cardiology 08/06/22 Augustus Brooke MD [address] [facility] 1 [place] [address] Consulting Physician Emergency Medicine 02/18/24 Taz Randhawa MD [address] [place] [address] Consulting Physician Orthopedic Surgery 03/19/24
--- OUTSIDE RECORDS SUMMARY | 2025-10-26 11:15 | XMS_ITS | Encounter Summary ---
Author Organization [facility] Address [address] [place] [address] Care Team Providers Care Quantitative Research Analyst Name Role Phone Imtiaz Bundy MD Primary Care Provider [phone] Victor Manuel Preston MD Unavailable [phone] Encounter Details Date Type Department Care Team (Late st Contact Info) Description 04/16/2017 [facility] AT [address] [address] Kandis Carey MA Social History Tobacco Use Types Packs/Day Years Used Date Smoking Tobacco: Never Smokeless Tobacco: Never Alcohol Use Standard Drinks/Week Comments Yes 12 (1 standard drink = 0.6 oz pu re alcohol) 12 drinks per week Comments Unknown Sex and Gender Information Value Date Recorded Sex Assigned at Unknown 12/15/2024 10:46 AM CHIEF DIGITAL OFFICER Legal Sex Male 10:26 PM CDT Gender [...] st Contact Info) Description 12/21/2025 10:00 AM CHIEF DIGITAL OFFICER Office Visit [facility] [address] [facility] [address], [place] [address] [place] [address] Victor Manuel Preston MD [facility]. [address] [id number] documented as of this encounter Procedures Procedure [...] * (ABNORMAL) BASIC METABOLIC PANEL (05/07/2018) Pathologist [facility] SODIUM S/P/B 138 POTASSIUM S/P/B 4.3 CO2 25 CHLORIDE S/P/B 105 GLUCOSE 85 mg/dL CALCIUM S/P/B 9.7 BUN 19 CREATININE S/P/B 0.88 0.7 - 1.3 EGFR AFR. AMER. 119 EGFR NON-AFR. AMER. 103(A) <=90 05/07/2018 us Doc [facility]AT[facility] Final Result * LIPID PANEL (05/07/2018) [facility] CHOLESTEROL 173 HDL 62 TRIGLYCERIDES 75 NON HDL CHOLESTEROL 111 LDL (CALCULATED) 95 05/07/2018 us Doc [facility] Final Result * PROSTATE SPECIFIC ANTIGEN,TOTAL (05/30/2017) [facility] PSA 0.7 05/30/2017 us Doc [facility] Final Result * CBC (OUTSIDE LAB) (05/30/2017) [facility] WBC 7.0 HGB 13.0 HCT 38.1 PLT 334 05/30/2017 us Doc [facility] Abstract LAB-OUTSIDE/ABSTRACTED Final Result * THYROXINE, FREE (FT4) (05/30/2017) [facility] FREE T4 1.6 05/30/2017 us Doc [facility] LABORATORY Final Result * THYROID STIM HORMONE, TSH (05/30/2017) TSH 3.48 05/30/2017 us Doc [facility] LAB[facility]AT[facility] Final Result * HEMOGLOBIN, GLYCOSYLATED (05/30/2017) Pathologist [facility] HGB A1C 5.0 05/30/2017 us Doc [facility] LAB[facility]AT[facility] Final Result * HEPATIC FUNCTION PANEL (05/30/2017) Pathologist [facility] ALBUMIN S/P/B 4.7 3.5 - 5.0 ALKALINE PHOSPHATASE S/P/B 34 ALT 16 AST 25 BILIRUBIN TOTAL S/P/B 0.5 TOTAL PROTEIN S/P/B 7.7 GLOBULIN 3.0 05/30/2017 us Doc [facility] Final Result * THYROXINE, FREE (FT4) (02/03/2017) Pathologist [facility] FREE T4 2.0 02/03/2017 us Doc [facility] Abstract LABORATORY Final Result * THYROID STIM HORMONE, TSH (02/03/2017) Pathologist [facility] TSH 1.970 02/03/2017 us Doc [facility] Abstract LABORATORY Edited Resul t - Final * LIPID PANEL (11/11/2016) Pathologist [facility] CHOLESTEROL 176 HDL 62 TRIGLYCERIDES 151 LDL (CALCULATED) 84 11/11/2016 us Doc [facility] Final Result documented in this encounter Visit Diagnoses Not on filedocumented in this encounter Care Teams Quantitative Research Analyst Relationship Specialty Start Date End Date Imtiaz Bundy MD [address] [address] PCP - General FAMILY PRACTICE 05/01/16 Victor Manuel Preston MD [facility]. [address] [address] Azeb It Sales Executive CARDIOVASCULAR DISEASE 05/01/16 documented as of this encounter
--- OUTSIDE RECORDS SUMMARY | 2025-10-26 11:15 | XMS_ITS | Clinical Summary ---
Author Organization [facility] Address [address] [place] [address] Phone Care Team Providers Care Costume Shop Coordinator Name Role Phone Imtiaz Bundy MD Primary Care Provider [phone] Allergies No known active allergies Medications triamterene-hydr [...] ) 1990 Influenza Vaccine (#1) 2025 Insurance [employer] Care Teams Costume Shop Coordinator Relationship Specialty Start Date End Date Imtiaz Bundy MD PCP - General Family Medicine 08/21/22
--- OUTSIDE RECORDS SUMMARY | 2025-10-26 11:15 | XMS_ITS | Encounter Summary ---
Author Organization [facility] Address [address] [facility] [place] [address] Care Team Providers Care Grinding Wheel Dresser Name Role Phone Imtiaz Bundy MD Primary Care Provider [phone] Encounter Details Date Type Department Care Team (Late st Contact Info) Description 07/14/2019 Telephone [facility] [address] [place] [address] Donald Kemp MD [address] [place] [address] Social History Tobacco Use Types Packs/Day Years Used Date Smoking Tobacco: Never Smokeless Tobacco: Never Alcohol Use Standard Drinks/Week Comments No 0 (1 standard drink = 0.6 oz pur e alcohol) Sex and Gender Information Value Date Recorded Sex Assigned at Not on file Legal Sex Male 6:22 AM LAMP SHADE SEWER Gender Identity Not on file Sexual Orientation [...] back to what he was taking before, [id number] mcg. Pt is now taking 175 mcg. documented in this encounter Plan of Treatment Not on file documented as of this encounter Visit Diagnoses Not on filedocumented in this encounter Care Teams Grinding Wheel Dresser Relationship Specialty Start Date End Date Imtiaz Bundy MD [address] [place] [address] PCP - General 04/07/18 documented as of this encounter
--- OUTSIDE RECORDS SUMMARY | 2025-10-26 11:15 | XMS_ITS | Clinical Summary ---
Author Organization [facility] Address [address] [place] [address] Care Team Providers Care Manager Recruiting Name Role Phone Imtiaz Bundy MD Primary Care Provider [phone] Source Comments [facility],non-owned Affiliates and Associated Physician Practices is amultiple site organization consisting of ambulatory clinics and hospital sitesin [place], [place], [place] and [place]. This disclosure is being madepursuant to the Care Everywhere program and may not contain all information available regarding this patient. Last updated 18.[facility] Allergies No known active allergies Medications * [...] on file Legal Sex Male 6:22 AM OFFICE EQUIPMENT MECHANIC Gender Identity Not on file Sexual Orientation [...] 2021 ZOSTER VACCINE (1 of 2) 2021 DEPRESSION SCREENING 12/01/2024 COVID-19 VACCINE (1 - 2024-2 6 season) 2025 INFLUENZA VACCINE (#1) 2025 HIB VACCINE Aged [...] PANEL (CALCIUM TOTAL) Routine 01/27/2018 10:58 AM OFFICE EQUIPMENT MECHANIC from Last 3 Months or Most Recently Relevant to Health Maintenance Results * (ABNORMAL) BASIC METABOLIC PANEL (CALCIUM TOTAL) (01/27/2018 10:58 AM OFFICE EQUIPMENT MECHANIC) Glucose 93 65 - 99 mg/dL AB ([facility]) Comment: Fasting reference interval BUN 28(H) 7 [...] mg/dL [facility] ([facility]) Comment: Test Performed at: [facility] [address] [place] [address] JAGJIT WHITTINGTON DO,MPH Blood specimen (specimen) BLOOD SPECIMEN / Unknown 01/27/2018 10:58 AM OFFICE EQUIPMENT MECHANIC 01/27/2018 11:01 AM OFFICE EQUIPMENT MECHANIC us Leonardo Barkley MD LAB - CHEMISTRY ORDERABLES Final Result [facility] ([facility]) [id number] from Last 3 Months or Most Recently Relevant to Health Maintenance Insurance [facility] Care Teams Manager Recruiting Relationship Specialty Start Date End Date Imtiaz Bundy MD [address] [place] [address] PCP - General 04/07/18
--- OUTSIDE RECORDS SUMMARY | 2025-10-26 11:15 | XMS_ITS | Clinical Summary ---
Author Organization [facility] Address [address] [place] [address] Care Team Providers Care Distribution Engineer Name Role Phone Imtiaz Bundy MD Primary Care Provider [phone] Victor Manuel Preston MD Unavailable [phone] Allergies No known active allergies Medications Cholecalcifero l (VITAMIN D3) 50 MCG (1999 UT) Tab [...] total) by mouth daily. 10/05/20 23 Active fenofibrate 160 MG tablet TAKE 1 TABLET BY MOUTH EVERY DAY 90 tablet 2 01/11/20 25 Active verapamil (CALAN SR) 120 MG ER tablet TAKE 1 TABLET (120 MG TOTAL) BY MOUTH DAILY. NEW DOSE 90 tablet 1 09/07/20 25 Active triamterene-hy droCHLOROthiaz cornelius (DYAZIDE) 37.5-25 MG capsule TAKE 1 CAPSULE BY MOUTH EVERY DAY 90 capsule 1 09/07/20 25 Active doxazosin (CARDURA) 4 MG tablet TAKE 1 TABLET BY MOUTH EVERY DAY 90 tablet 10/06/20 25 Active doxazosin (CARDURA) 4 MG tablet TAKE 1 TABLET BY MOUTH EVERY DAY 90 tablet 2 02 025 Discontinued Active Problems Problem Noted Date Diagnosed Date Chronic kidney disease, stage 2 (mild) Vitamin D deficiency 04/22/2023 Status post total replacement of left hip 2021 Primary hypertension 08/15/2022 Primary hypothyroidism 08/15/2022 Avascular necrosis of bone of hip 08/01/2022 Overview (12/15/2024): Added automatically from request for surgery [id number] Complex sleep apnea syndrome 08/25/2018 Overview (09/03/2022): [...] due to cerebral aneurysm 05/12/2018 Intracranial aneurysm 10/22/2016 Acquired atrophy of thyroid 06/28/2016 Essential [...] Sex Assigned at Unknown 12/15/2024 10:46 AM COUNTRY SALES MANAGER Legal Sex Male 10:26 PM CDT Gender Identity Not on file Sexual Orientation Not on file Occupation Industry Job Start Date Job End Date Not on file Not on file Not on file Not on file Last Filed Vital Signs Vital Sign Reading Time Taken Comments Blood Pressure 134/60 12/15/2024 11:05 AM COUNTRY SALES MANAGER Pulse 67 12/15/2024 11:05 AM COUNTRY SALES MANAGER Temperature - - Respiratory Rate - - Oxygen Saturation 96% 12/15/2024 11:05 AM COUNTRY SALES MANAGER Inhaled Oxygen Concentration - - Weight 104.8 kg (231 lb) 12/15/2024 11:05 AM COUNTRY SALES MANAGER Height 180.3 cm (5' 11) 12/15/2024 11:05 AM COUNTRY SALES MANAGER Body Mass Index 32.22 12/15/2024 11:05 AM COUNTRY SALES MANAGER Plan of Treatment Upcoming Encounters Date Type Department Care Team (Late st Contact Info) Description 12/21/2025 10:00 AM COUNTRY SALES MANAGER Office Visit [facility] [place] [facility], [address] [address] Victor Manuel Preston MD [address] [facility]. [address] [address] Health Maintenance Due Date Last Done Comments Colorectal Cancer Screening Colonoscopy (10 Years) 1971 Annual Physical 1974 Hepatitis C 1989 DTaP, Tdap and Td Vaccines ( 1 - Tdap) 1990 Hepatitis B Vaccines (1 of 3 - 19+ 3-dose series) 1990 Pneumococcal Vaccine: 50+ Years (1 of 1 - PCV) 2021 Zoster Vaccines (1 of 2) 2021 COVID-19 Vaccine ( - 2024-2 6 season) 2025 05/09/2021, 04/06/2021 Influenza Adult (#1) 2025 Hepatitis A Vaccines Aged Out No long er eligible based on patient's age to complete this topic Meningococcal B Vaccine Aged Out No l onger eligible based on patient's age to complete this topic Meningococcal Vaccine Aged Out No danny sam eligible based on patient's age to complete this topic RSV Immunizations Under 20 Months Aged Out No longer eligible b ased on patient's age to complete this topic Insurance [employer] Care Teams Distribution Engineer Relationship Specialty Start Date End Date Imtiaz Bundy MD [address] [place] [address] [address] [place] [address] PCP - General FAMILY PRACTICE 05/01/16 Victor Manuel Preston MD [facility] [address] [place] [address] [place] Ampoule Inspector CARDIOVASCULAR DISEASE 05/01/16
[2025-10-26 12:54] LABS: Hematocrit 45.0 % (42.0-52.0); Hemoglobin 14.7 g/dL (14.0-18.0); Mean Corpuscular HGB Conc 32.7 g/dl (32-36); Mean Corpuscular Hemoglobin 30.3 pg (26-34); Mean Corpuscular Volume 92.8 fl (80-100); Platelet Count Result 277 k/mm3 (150-375); Red Blood Count 4.85 M/mm3 (4.6-6.20); White Blood Count 6.3 K/mm3 (4.5-10.0)
[2025-10-26 13:01] LABS: Add Urine Microscopic? NO; Appearance Urine Clear (Clear); Glucose Urine UA Negative (Negative); Leukocyte Esterase Ur Negative LEU/UL (Negative); Nitrate Urine Negative (Negative); Specific Grav Ur 1.017 (1.001-1.035)
[2025-10-26 13:17] LABS: Alanine Aminotransferase 23 U/L (6-50); Albumin Level 4.5 g/dL (3.5-5.1); Alkaline Phosphatase 38 U/L (38-126); Anion Gap 9 mmol/L (4-12); Aspartate Amino Transferase 41 U/L (17-59); Bilirubin,Total 0.6 mg/dL (0.2-1.3); Blood Urea Nitrogen 18 mg/dL (9-20); Calcium 9.9 mg/dL (8.4-10.2); Carbon Dioxide 22 mmol/L (22-30); Chloride 108 mmol/L (98-107); Cholesterol 185 mg/dL (0-200); Estimated Glomerular Filt Rate > 60; Glucose 106 mg/dL (65-110); HDL Direct 54 mg/dL; Potassium 3.8 mmol/L (3.4-5.0); Sodium 139 mmol/L (137-145); Total Protein 7.8 g/dL (6.3-8.2); Triglycerides 176 mg/dL (<150); Uric Acid 6.7 mg/dL (3.5-8.5)
[2025-10-26 13:20] LABS: Free T4 Free Thyroxine 1.16 ng/dL (0.78-2.19)
[2025-10-26 13:35] LABS: MALB Creatinine Ratio < 7.7 mg/g (0-30)
[2025-10-26 13:52] LABS: Thyroid Stimulating Hormone 4.330 uIU/mL (0.465-4.680)
[2025-10-27 13:39] LABS: Hemoglobin A1C 5.3 % (<5.7)
[2025-10-28 12:44] LABS: Prostate Specific Antigen 2.0 ng/mL (< OR = 4.0)
== END 2025-10-26 10:30 | disposition home or self-care (01) ==
LOC: ANHGOSHLAB 10:30
PROVIDERS: PCP Emergency Medicine; Visit Provider Emergency Medicine
DX: Z00.00 Encounter for general adult medical examination without abnormal findings (principal); E78.5 Hyperlipidemia, unspecified; I10 Essential (primary) hypertension; R31.9 Hematuria, unspecified; M10.9 Gout, unspecified
CPT/HCPCS: 36415; 80053; 80061; 81003; 82043; 82306; 83036; 84153; 84439; 84443; 84550; 85027; 88108